=== PATIENT | male | born 1990 | race Caucasian/White ===

== ENCOUNTER 2018-08-17 19:33 | Emergency (ER) | payer SELFPAY ==
[~2018-08-17] VITALS: Ht 175.3 cm; Wt 61.2 kg
[~2018-08-17 19:33] MED LIST: HYDR1TAB PO; PANT40TA2 PO
--- OUTSIDE RECORDS SUMMARY | 2018-08-17 19:43 | XMS REPORT ---
Author Author ESTELA ROSALES Organization [employer] Address Unknown Phone Unavailable Care Team Providers Care Rn Mobile Name Role Phone ESTELA ROSALES CP Unavailable Allergies No Known Allergies Problems Problem Type Condition Code Onset Dates Condition Status Problem Acute pharyngitis 462 Active Problem Intestinal infection due to other organism, NEC 008.8 Active Medications Medication Code System Code Instructions Start Date End Date Status Dosage Tramadol HCl [facility] [id number] 50MG every 6 hrs TAKE ONE TABLET Results No Known Results Summary Purpose [employer] Submission
--- OUTSIDE RECORDS SUMMARY | 2018-08-17 19:43 | XMS REPORT ---
Author Author ESTELA ROSALES Organization [facility] Address [address] [place] [address] Care Team Providers Care Area Field Manager Name Role Phone ESTELA ROSALES Unavailable PROBLEMS Type Condition ICD9-CM Code LVK21-LQ Code Onset Dates Condition Status SNOMED Code Problem Other chronic pain G89.29 Active 74420921 ALLERGIES No Known Allergies ENCOUNTERS Encounter Location Date Diagnosis [facility] [id number] [place] [address] 75937- 7623 Oct, Low back pain M54.5 and Other chronic pain G89.29 [facility] [id number] [place] [address] 09296- 1868 Sep, [facility] [id number] [place] [address] 39807- 5066 Aug, [facility] [id number] [place] [address] 32249- 9530 Jul, [facility] [id number] [place] [address] 50724- 0333 Jul, [facility] [id number] [place] [address] 26911- 4499 Jul, [facility] [id number] [place] [address] 74666- 2759 Jun, [facility] [id number] [place] [address] 02201- 0442 Jun, [facility] [id number] [place] [address] 01407- 4849 May, [facility] [id number] [place] [address] 05849- 6843 Apr, [facility] [address] [id number] [place] [address] 7703 Apr, [facility] [address] [id number] [place] [address] 9058 February, [facility] [address] [id number] [place] [address] 1116 February, [facility] [address] [id number] [place] [address]- 2468 Jan, [facility] [address] [id number] [place] [address]- 4128 Nov, [facility] [address] [id number] [place] [address] 7551 Oct, [facility] [address] [facility] [id number] [place] [address]- 1771 Oct, [facility] [address] [id number] [place] [address]- 9864 Sep, [facility] [address] [id number] [place] [address] 8232 Aug, Low back pain M54.5 and Other chronic pain G89.29 [facility] [address] [id number] [place] [address]- 7179 Jul, [facility] [address] [id number] [place] [address]- 7951 Jul, [facility] [address] [facility] [id number] [place] [address]- 2107 Jul, [facility] [address] [id number] [place] [address]- 7972 May, [facility] [address] [id number] [place] 7667 May, [facility] [address] [facility] [id number] [place] [address]- 6589 Apr, [facility] [address] [facility] [id number] [place] [address] 36048- 8635 Mar, [facility] [address] [facility]] [id number] [place] [address] 99822- 9358 February, Low back pain M54.5 [facility] [address] [facility] [id number] [place] [address] 76984- 2852 February, Low back pain M54.5 [facility] [address] [facility] [id number] [place] [address] 66462- 5012 Dec, Low back pain M54.5 and Gastroesophageal reflux disease with esophagitis K21.0 [facility] [id number] [place] [address] 57090- 9149 Dec, [facility] [id number] [place] [address] 68379- 3274 Oct, [facility] [id number] [place] [address] 72639- 4211 Sep, [facility] [address] [facility] [id number] [place] [address] 78041- 3577 Sep, [facility] [id number] [place] [address] 85178- 8470 Aug, Back pain 724.5 [facility] [id number] [place] [address] 39082- 6502 Jul, Back pain 724.5 [facility] [id number] [place] [address] 98781- 9326 Jun, Back pain 724.5 [facility] [address] [facility] [id number] [place] [address] 23445- 2593 May, Back pain 724.5 [facility] [address] [facility] [id number] [place] [address] 300683- 6296 Apr, [facility] [id number] [place] [address] 70018- 6834 Mar, [facility] [place] [facility] [address] [id number] [place] [address]- 5539 14 Jan, 2015 [facility] [place] [facility] [address] [id number] [place] [address]- 1616 Jan, [facility] [place] [facility] [address] [id number] [place] [address]- 8487 Dec, [facility] [place] [facility] [address] [id number] [place] [address]- 9143 Dec, [facility] [place] [facility] [address] [id number] [place] [address]- 3303 Dec, [facility] [place] [facility] [address] [id number] [place] [address]- 9809 Dec, [facility] [place] [facility] [address] [id number] [place] [address]- 4236 Nov, [facility] [place] [facility] [address] [id number] [place] [address]- 3684 Nov, [facility] [place] [facility] [address] [id number] [place] [address]- 5233 Oct, [facility] [place] [facility] [address] [facility] [id number] [place] [address]- 3707 Oct, [facility] [place] [facility] [address] [facility] [id number] [place] [address]- 6861 Sep, [facility] [place] [facility] [address] [id number] [place] [address]- 3962 Sep, [facility] [place] [facility] [address] [id number] [place] [address]- 7405 Jul, [facility] [place] [facility] [address] [id number] [place] [address]- 9265 Jul, [facility] [place] [facility] [address] [id number] [place] [address]- 6700 Jul, [facility] [place] [facility] [address] [id number] [place] [address]- 1628 Jun, [facility] [place] [facility] [address] [id number] [place] [address]- 7708 Jun, [facility] [place] [facility] [address] [id number] [place] [address]- 4089 Jun, [facility] [place] [facility] [address] [id number] [place] [address]- 7271 Jun, [facility] [place] [facility] [address] [id number] [place] [address]- 7772 May, [facility] [place] [facility] [address] [id number] [place] [address]- 1881 May, [facility] [place] [facility] [address] [id number] [place] [address]- 7919 May, [facility] [place] [facility] [address] [id number] [place] [address]- 8736 May, [facility] [place] [facility] [address] [id number] [place] [address]- 7268 Apr, [facility] [place] [facility] [address] [id number] [place] [address]- 4210 Apr, [facility] [place] [facility] [address] [id number] [place] [address]- 9746 Mar, [facility] [place] [facility] [address] [id number] [place] [address]- 3869 Mar, [facility] [place] [facility] [address] [id number] [place] [address]- 0236 Jan, [facility] [place] [facility] [address] [id number] [place] [address]- 0657 Jan, [facility] [place] [facility] [address] [id number] [place] [address]- 1159 Dec, [facility] [place] [facility] [address] [id number] [place] [address]- 2982 Dec, [facility] [place] [facility] [address] [id number] [place] [address]- 2546 Nov, [facility] [address] [id number] [place] [address]- 9066 Nov, [facility] [address] [id number] [place] [address]- 2546 Sep, [facility] [address] [id number] [place] [address]- 3176 Sep, [facility] [address] [id number] [place] [address]- 2541 Sep, [facility] [address] [id number] [place] [address]- 8383 Sep, [facility] [address] [id number] [place] [address]- 9746 Aug, [facility] [address] [id number] [place] [address]- 0765 Aug, [facility] [address] [id number] [place] [address]- 3177 May, [facility] [address] [id number] [place] [address]- 1017 Apr, [facility] [address] [facility] [id number] [place] [address]- 1599 Mar, [facility] [address] [id number] [place] [address]- 2546 February, [facility] [address] [id number] [place] [address]- 5228 Jan, [facility] [place] [facility] [address] [id number] [place] [address]- 2546 Jan, [facility] [address] [id number] [place] [address]- 2546 Jan, [facility] [address] [id number] [place] [address]- 6726 Dec, [facility] [address] [facility] [id number] [address]- 8166 Dec, [facility] [address] [facility] [id number] [place] [address]- 1586 Dec, [facility] [address] [place] [address]- 5138 Oct, [facility] [address] [place] [address]- 9156 Sep, [facility] [address] [facility] [id number] [place] [address]- 5188 Sep, [facility] [address] [place] [address]- 7846 Aug, [facility] [id number] [address]- 4336 Aug, [facility] [address] [place] [address]- 2629 Aug, [facility] [address] [place] [address]- 3657 Aug, [facility] [address] [place] [address]- 4279 Aug, [facility] [address] [place] [address]- 4296 Jun, [facility] [address] [place] [address]- 9456 May, [facility] [id number] [address]- 1616 Mar, [facility] [address] [place] [address]- 9976 Sep, IMMUNIZATIONS No Known Immunizations SOCIAL HISTORY Never Assessed REASON FOR VISIT Pain management (chronic), PT says he has an increase in back spasms and has been out of his medication for a month-Deepa DICKERSON PLAN OF CARE VITAL SIGNS Height 69 in 2017-10-26 Weight 126.5 lbs 2017-10-26 Temperature 98.5 degrees Fahrenheit 2017-10-26 Heart Rate 84 bpm 2017-10-26 Respiratory Rate 18 2017-10-26 BMI 18.68 kg/m2 2017-10-26 Blood pressure systolic 124 mmHg 2017-10-26 Blood pressure diastolic 84 mmHg 2017-10-26 MEDICATIONS Medication Instructions Dosage Frequency Start Date End Date Duration Status Omeprazole 40 MG Orally Once a day 1 capsule 24h Dec, 30 day(s ) Not-Taking Tramadol HCl 50 MG Orally 4 times a day. 1 tablet as needed 28 days Active RESULTS No Results PROCEDURES No Known procedures INSTRUCTIONS MEDICATIONS ADMINISTERED No Known Medications MEDICAL (GENERAL) HISTORY Type Description Date Medical History scolosis
--- OUTSIDE RECORDS SUMMARY | 2018-08-17 19:43 | XMS REPORT ---
Author Author ESTELA ROSALES Organization [facility] [place] [facility] Address [address] [place] [address] Care Team Providers Care Hospital Liaison Name Role Phone ESTELA ROSALES Unavailable PROBLEMS Type Condition ICD9-CM Code OBB06-WP Code Onset Dates Condition Status SNOMED Code Problem Other chronic pain G89.29 Active 35676905 ALLERGIES No Information ENCOUNTERS Encounter Location Date Diagnosis [facility] [place] [facility] [id number] [place] [address] 45308- 5593 Oct, Low back pain M54.5 and Other chronic pain G89.29 [facility] [place] [facility] [id number] [place] [address] 10023- 5244 Sep, [facility] [place] [facility] [id number] [place] [address] 61353- 7367 Aug, [facility] [place] [facility] [id number] [place] [address] 64199- 9224 Jul, [facility] [place] [facility] [id number] [place] [address] 11673- 2602 Jul, [facility] [place] [facility] [id number] [place] [address] 15937- 0484 Jul, [facility] [place] [facility] [id number] [place] [address] 68713- 7539 Jun, [facility] [place] [facility] [id number] [place] [address] 05595- 3544 Jun, [facility] [place] [facility] [id number] [place] [address] 27608- 8721 May, [facility] [place] [facility] [id number] [place] [address] 55651- 0801 Apr, [facility] [place] [facility] [address] [id number] [place] [address]- 2310 Apr, [facility] [address] [id number] [place] [address]- 5781 February, [facility] [address] [id number] [place] [address]- 9966 February, [facility] [address] [id number] [place] [address]- 2241 Jan, [facility] [address] [id number] [place] [address]- 8448 Nov, [facility] [address] [id number] [place] [address]- 5984 Oct, [facility] [address] [id number] [place] [address]- 5546 Oct, [facility] [address] [id number] [place] [address]- 2933 Sep, [facility] [address] [id number] [place] [address]- 9217 Aug, Low back pain M54.5 and Other chronic pain G89.29 [facility] [address] [id number] [place] [address]- 5281 Jul, [facility] [address] [id number] [place] [address]- 0890 Jul, [facility] [address] [id number] [place] [address]- 1721 Jul, [facility] [address] [id number] [place] [address]- 1180 May, [facility] [address] [id number] [place]15 May, [facility] [address] [id number] [place] [address]- 7075 Apr, [facility] [place] [facility] [address] [facility] [id number] [place] [address] 53216- 0654 Mar, [facility] [place] [facility] [address] [facility] [id number] [place] [address] 10598- 3535 February, Low back pain M54.5 [facility] [place] [facility] [address] [facility] [id number] [place] [address] 00687- 2241 February, Low back pain M54.5 [facility] [place] [facility] [address] [facility] [id number] [place] [address] 95933- 1732 Dec, Low back pain M54.5 and Gastroesophageal reflux disease with esophagitis K21.0 [facility] [place] [facility] [id number] [place] [address] 42932- 7757 Dec, [facility] [place] [facility] [id number] [place] [address] 72491- 3400 Oct, [facility] [place] [facility] [id number] [place] [address] 60569- 5885 Sep, [facility] [place] [facility] [address] [facility] [id number] [place] [address] 01807- 8394 Sep, [facility] [place] [facility] [id number] [place] [address] 26399- 7164 Aug, Back pain 724.5 [facility] [place] [facility] [id number] [place] [address] 99099- 5824 Jul, Back pain 724.5 [facility] [place] [facility] [id number] [place] [address] 54409- 4103 Jun, Back pain 724.5 [facility] [place] [facility] [address] [facility] [id number] [place] [address] 92819- 9629 May, Back pain 724.5 [facility] [place] [facility] [address] [facility] [id number] [place] [address] 405444- 6326 Apr, [facility] [place] [facility] [id number] [place] [address] 72789- 2959 Mar, [facility] [place] [facility] [address] [id number] [place] [address]- 2643 14 Jan, 2015 [facility] [place] [facility] [address] [id number] [place] [address]- 2663 13 Jan, 2015 [facility] [place] [facility] [address] [id number] [place] [address]- 1336 Dec, [facility] [place] [facility] [address] [id number] [place] [address]- 2124 Dec, [facility] [place] [facility] [address] [id number] [place] [address]- 4815 Dec, [facility] [place] [facility] [address] [id number] [place] [address]- 4553 Dec, [facility] [place] [facility] [address] [id number] [place] [address]- 6599 Nov, [facility] [place] [facility] [address] [id number] [place] [address]- 0136 Nov, [facility] [place] [facility] [address] [id number] [place] [address]- 4594 Oct, [facility] [place] [facility] [address] [id number] [place] [address]- 3781 Oct, [facility] [place] [facility] [address] [id number] [place] [address]- 0923 Sep, [facility] [place] [facility] [address] [id number] [place] [address]- 6778 Sep, [facility] [place] [facility] [address] [id number] [place] [address]- 1194 Jul, [facility] [place] [facility] [address] [id number] [place] [address]- 9915 Jul, [facility] [place] [facility] [address] [id number] [place] 9468 Jul, [facility] [place] [facility] [address] [id number] [place] [address]- 3788 Jun, [facility] [place] [facility] [address] [id number] [place] [address]- 7124 Jun, [facility] [place] [facility] [address] [id number] [place] [address]- 9759 Jun, [facility] [place] [facility] [address] [id number] [place] [address]- 7888 Jun, [facility] [place] [facility] [address] [id number] [place] [address]- 7511 May, [facility] [place] [facility] [address] [id number] [place] [address]- 9519 May, [facility] [place] [facility] [address] [id number] [place] [address]- 0540 May, [facility] [place] [facility] [address] [id number] [place] [address]- 6366 May, [facility] [place] [facility] [address] [id number] [place] [address]- 9383 Apr, [facility] [place] [facility] [address] [id number] [place] [address]- 9985 Apr, [facility] [place] [facility] [address] [id number] [place] [address]- 7507 Mar, [facility] [place] [facility] [address] [id number] [place] [address]- 2075 Mar, [facility] [place] [facility] [address] [id number] [place] [address]- 8951 Jan, [facility] [place] [facility] [address] [id number] [place] [address]- 9001 Jan, [facility] [place] [facility] [address] [id number] [place] 3649 Dec, [facility] [place] [facility] [address] [id number] [place] [address]- 1284 Dec, [facility] [place] [facility] [address] [id number] [place] [address]- 2546 Nov, [facility] [address] [id number] [place] [address]- 6284 Nov, [facility] [address] [id number] [place] [address]- 3766 Sep, [facility] [address] [id number] [place] [address]- 3436 Sep, [facility] [address] [id number] [place] [address]- 1828 Sep, [facility] [address] [id number] [place] [address]- 4470 Sep, [facility] [address] [facility] [id number] [place] [address]- 5946 Aug, [facility] [address] [id number] [place] [address]- 1168 Aug, [facility] [address] [id number] [place] [address]- 2080 May, [facility] [address] [id number] [place] [address]- 9153 Apr, [facility] [address] [facility] [id number] [place] [address]- 1963 Mar, [facility] [address] [id number] [place] [address]- 2546 February, [facility] [address] [id number] [place] [address]- 4953 Jan, [facility] [address] [id number] [place] [address]- 0063 Jan, [facility] [address] [id number] [place] [address]- 2546 Jan, [facility] [address] [id number] [place] [address]- 2212 Dec, [facility] [place] [facility] [address] [facility] [id number] [place] [address]- 4199 Dec, [facility] [place] [facility] [address] [facility] [id number] [place] [address]- 6396 Dec, [facility] [place] [facility] [address] [facility] [id number] [place] [address]- 7086 Oct, [facility] [place] [facility] [address] [facility] [id number] [place] [address]- 9486 Sep, [facility] [place] [facility] [address] [facility] [id number] [place] [address]- 5804 Sep, [facility] [place] [facility] [address] [id number] [address]- 2956 Aug, [facility] [place] [facility] [id number] [address]- 5256 Aug, [facility] [place] [facility] [id number] [address]- 1166 Aug, [facility] [place] [facility] [id number] [address]- 0735 Aug, [facility] [place] [facility] [id number] [address]- 7016 Aug, [facility] [place] [facility] [id number] [address]- 0096 Jun, [facility] [place] [facility] [address] [id number] [address]- 0436 May, [facility] [place] [facility] [address] [id number] [address]- 8726 Mar, [facility] [place] [facility] [id number] [address]- 4596 Sep, IMMUNIZATIONS No Known Immunizations SOCIAL HISTORY Never Assessed REASON FOR VISIT refill request PLAN OF CARE VITAL SIGNS MEDICATIONS No Known Medications RESULTS No Results PROCEDURES No Known procedures INSTRUCTIONS MEDICATIONS ADMINISTERED No Known Medications MEDICAL (GENERAL) HISTORY Type Description Date Medical History scolosis
--- OUTSIDE RECORDS SUMMARY | 2018-08-17 19:43 | XMS REPORT ---
Author Author ESTELA ROSALES Organization [employer] Address Unknown Phone Unavailable Care Team Providers Care Census Clerk Name Role Phone ESTELA ROSALES CP Unavailable Allergies No Known Allergies Problems Problem Type Condition Code Onset Dates Condition Status Problem Acute pharyngitis 462 Active Problem Intestinal infection due to other organism, NEC 008.8 Active Medications Medication Code System Code Instructions Start Date End Date Status Dosage Tramadol HCl [facility] [id number] 50MG 4 times a day. 1 tablet as needed Results No Known Results Summary Purpose [employer] Submission
--- OUTSIDE RECORDS SUMMARY | 2018-08-17 19:43 | XMS REPORT ---
Author Author ESTELA ROSALES Organization [facility] Address [address] [place] [address] Care Team Providers Care Laboratory Operations Coordinator Name Role Phone ESTELA ROSALES Unavailable PROBLEMS Type Condition ICD9-CM Code LMO83-PF Code Onset Dates Condition Status SNOMED Code Problem Other chronic pain G89.29 Active 06101917 ALLERGIES No Information ENCOUNTERS Encounter Location Date Diagnosis [facility] [id number] [place] [address] 01429- 2938 Oct, Low back pain M54.5 and Other chronic pain G89.29 [facility] [id number] [place] [address] 89048- 7954 Sep, [facility] [id number] [place] [address] 44480- 3407 Aug, [facility] [id number] [place] [address] 79437- 6012 Jul, [facility] [id number] [place] [address] 33816- 9264 Jul, [facility] [id number] [place] [address] 50766- 2641 Jul, [facility] [id number] [place] [address] 15257- 3057 Jun, [facility] [id number] [place] [address] 96359- 9328 Jun, [facility] [id number] [place] [address] 92087- 2937 May, [facility] [id number] [place] [address] 27910- 1006 Apr, [facility] [address] [id number] [place] [address]- 9534 Apr, [facility] [address] [id number] [place] [address]- 1515 February, [facility] [address] [id number] [place] [address]- 7096 February, [facility] [address] [id number] [place] [address]- 7878 Jan, [facility] [address] [id number] [place] [address]- 0928 Nov, [facility] [address] [id number] [place] [address]- 7344 Oct, [facility] [address] [id number] [place] [address]- 0829 Oct, [facility] [address] [id number] [place] [address]- 1855 Sep, [facility] [address] [id number] [place] [address]- 4364 Aug, Low back pain M54.5 and Other chronic pain G89.29 [facility] [address] [id number] [place] [address]- 4980 Jul, [facility] [address] [id number] [place] [address]- 9648 Jul, [facility] [address] [id number] [place] [address]- 6873 Jul, [facility] [address] [id number] [place] [address]- 1232 May, [facility] [address] [id number] [place] 6113 May, [facility] [address] [id number] [place] [address]- 8275 Apr, [facility] [place] [facility] [address] [facility] [id number] [place] [address] 38470- 7637 Mar, [facility] [address] [facility] [id number] [place] [address] 05877- 2322 February, Low back pain M54.5 [facility] [address] [facility] [id number] [place] [address] 84596- 0995 February, Low back pain M54.5 [facility] [address] [facility] [id number] [place] [address] 15060- 0802 Dec, Low back pain M54.5 and Gastroesophageal reflux disease with esophagitis K21.0 [facility] [id number] [place] [address] 62286- 1399 Dec, [facility] [id number] [place] [address] 41368- 7231 Oct, [facility] [id number] [place] [address] 94733- 7950 Sep, [facility] [address] [facility] [id number] [place] [address] 49338- 6358 Sep, [facility] [id number] [place] [address] 61937- 4342 Aug, Back pain 724.5 [facility] [id number] [place] [address] 89674- 1647 Jul, Back pain 724.5 [facility] [id number] [place] [address] 79810- 0815 Jun, Back pain 724.5 [facility] [address] [facility] [id number] [place] [address] 63157- 4724 May, Back pain 724.5 [facility] [address] [facility] [id number] [place] [address] 865601- 0656 Apr, [facility] [id number] [place] [address] 70321- 4260 Mar, [facility] [place] [facility] [address] [id number] [place] [address]- 4005 14 Jan, 2015 [facility] [place] [facility] [address] [id number] [place] [address]- 7736 13 Jan, 2015 [facility] [place] [facility] [address] [id number] [place] [address]- 8359 Dec, [facility] [place] [facility] [address] [id number] [place] [address]- 0453 Dec, [facility] [place] [facility] [address] [id number] [place] [address]- 2539 Dec, [facility] [place] [facility] [address] [id number] [place] [address]- 4456 Dec, [facility] [place] [facility] [address] [id number] [place] [address]- 4581 Nov, [facility] [place] [facility] [address] [id number] [place] [address]- 6565 Nov, [facility] [place] [facility] [address] [id number] [place] [address]- 1555 Oct, [facility] [place] [facility] [address] [id number] [place] [address]- 7562 Oct, [facility] [place] [facility] [address] [id number] [place] [address]- 6024 Sep, [facility] [place] [facility] [address] [id number] [place] [address]- 3190 Sep, [facility] [place] [facility] [address] [id number] [place] [address]- 0466 Jul, [facility] [place] [facility] [address] [id number] [place] [address]- 2121 Jul, [facility] [place] [facility] [address] [id number] [place] 7968 Jul, [facility] [place] [facility] [address] [id number] [place] [address]- 4719 Jun, [facility] [place] [facility] [address] [id number] [place] [address]- 8552 Jun, [facility] [place] [facility] [address] [id number] [place] [address]- 8601 Jun, [facility] [place] [facility] [address] [id number] [place] [address]- 2483 Jun, [facility] [place] [facility] [address] [id number] [place] [address]- 7965 May, [facility] [place] [facility] [address] [id number] [place] [address]- 0267 May, [facility] [place] [facility] [address] [id number] [place] [address]- 6377 May, [facility] [place] [facility] [address] [id number] [place] [address]- 4076 May, [facility] [place] [facility] [address] [id number] [place] [address]- 6667 Apr, [facility] [place] [facility] [address] [id number] [place] [address] Apr, [facility] [place] [facility] [address] [id number] [place] [address] Mar, [facility] [place] [facility] [address] [id number] [place] [address] Mar, [facility] [place] [facility] [address] [id number] [place] [address] Jan, [facility] [place] [facility] [address] [id number] [place] [address] Jan, [facility] [place] [facility] [address] [id number] [place] [address] Dec, [facility] [place] [facility] [address] [id number] [place] [address] Dec, [facility] [place] [facility] [address] [id number] [place] [address] Nov, [facility] [address] [id number] [place] [address] Nov, [facility] [address] [id number] [place] [address] Sep, [facility] [address] [id number] [place] [address] Sep, [facility] [address] [id number] [place] [address] Sep, [facility] [address] [id number] [place] [address] Sep, [facility] [address] [facility] [id number] [place] [address] Aug, [facility] [address] [id number] [place] [address] Aug, [facility] [address] [id number] [place] [address] May, [facility] [address] [id number] [place] [address] Apr, [facility] [address] [facility] [id number] [place] [address] Mar, [facility] [address] [id number] [place] [address] February, [facility] [address] [id number] [place] [address] Jan, [facility] [address] [id number] [place] [address] Jan, [facility] [address] [id number] [place] [address] Jan, [facility] [address] [id number] [place] [address] Dec, [facility] [address] [facility] [id number], [place] [address] Dec, [facility] [address] [facility] [id number], [place] [address] Dec, [facility] [address] [facility] [id number], [place] [address] Oct, [facility] [address] [facility] [id number], [place] [address] Sep, [facility] [address] [facility] [id number], [place] [address] Sep, [facility] [address] [id number], [place] [address] Aug, [facility] [id number], [place] [address] Aug, [facility] [id number], [place] [address] Aug, [facility] [id number], [place] [address] Aug, [facility] [id number], [place] [address] Aug, [facility] [address] [id number], [place] [address] Jun, [facility] [address] [id number], [place] [address] May, [facility] [address] [id number], [place] [address] Mar, [facility] [address] [id number], [place] [address] Sep, IMMUNIZATIONS No Known Immunizations SOCIAL HISTORY Never Assessed REASON FOR VISIT LVM PLAN OF CARE VITAL SIGNS MEDICATIONS No Known Medications RESULTS No Results PROCEDURES No Known procedures INSTRUCTIONS MEDICATIONS ADMINISTERED No Known Medications MEDICAL (GENERAL) HISTORY Type Description Date Medical History scolosis
--- OUTSIDE RECORDS SUMMARY | 2018-08-17 19:44 | XMS REPORT ---
Author Author ESTELA ROSALES [facility] Address [address] [place] [address] Care Team Providers Care Press Setup Operator Name Role Phone ESTELA ROSALES Unavailable PROBLEMS Type Condition ICD9-CM Code [id number] Code Onset Dates Condition Status SNOMED Code Problem Other chronic pain G89.29 Active 31833434 Problem Intestinal infection due to other organism, NEC 008.8 Active 58763907 Problem Acute pharyngitis 462 Active [id number] ALLERGIES Unknown Allergies SOCIAL HISTORY No smoking Hx information available PLAN OF CARE VITAL SIGNS MEDICATIONS Unknown Medications RESULTS No Results PROCEDURES No Known procedures IMMUNIZATIONS No Known Immunizations
--- OUTSIDE RECORDS SUMMARY | 2018-08-17 19:44 | XMS REPORT ---
Author Author ESTELA ROSALES Organization [facility] Address [address] [place] [address] Care Team Providers Care Bill Adjuster Name Role Phone ESTELA ROSALES Unavailable PROBLEMS Type Condition ICD9-CM Code CCB79-PS Code Onset Dates Condition Status SNOMED Code Problem Other chronic pain G89.29 Active 21746710 ALLERGIES No Information ENCOUNTERS Encounter Location Date Diagnosis [facility] [id number] [place] [address] 00943- 9537 Oct, Low back pain M54.5 and Other chronic pain G89.29 [facility] [id number] [place] [address] 98948- 5866 Sep, [facility] [id number] [place] [address] 83533- 4659 Aug, [facility] [id number] [place] [address] 77342- 2387 Jul, [facility] [id number] [place] [address] 19089- 0251 Jul, [facility] [id number] [place] [address] 80337- 7075 Jul, [facility] [id number] [place] [address] 39237- 1489 Jun, [facility] [id number] [place] [address] 57468- 1080 Jun, [facility] [id number] [place] [address] 53444- 0258 May, [facility] [id number] [place] [address] 57691- 7135 Apr, [facility] [address] [id number] [place] [address]- 1496 Apr, [facility] [address] [id number] [place] [address]- 2768 February, [facility] [address] [id number] [place] [address]- 8856 February, [facility] [address] [id number] [place] [address]- 3959 Jan, [facility] [address] [id number] [place] [address]- 9034 Nov, [facility] [address] [id number] [place] [address]- 2009 Oct, [facility] [address] [id number] [place] [address]- 5931 Oct, [facility] [address] [id number] [place] [address]- 4862 Sep, [facility] [address] [id number] [place] [address]- 1255 Aug, Low back pain M54.5 and Other chronic pain G89.29 [facility] [address] [id number] [place] [address]- 5048 Jul, [facility] [address] [id number] [place] [address]- 7107 Jul, [facility] [address] [id number] [place] [address]- 0696 Jul, [facility] [address] [id number] [place] [address]- 6864 May, [facility] [address] [id number] [place] 4965 May, [facility] [address] [id number] [place] [address]- 2858 Apr, [facility] [place] [facility] [address] [facility] [id number] [place] [address] 05326- 6958 Mar, [facility] [address] [facility] [id number] [place] [address] 42201- 7494 February, Low back pain M54.5 [facility] [address] [facility] [id number] [place] [address] 30082- 3589 February, Low back pain M54.5 [facility] [address] [facility] [id number] [place] [address] 53150- 1380 Dec, Low back pain M54.5 and Gastroesophageal reflux disease with esophagitis K21.0 [facility] [id number] [place] [address] 39038- 9669 Dec, [facility] [id number] [place] [address] 92739- 3985 Oct, [facility] [id number] [place] [address] 05025- 8239 Sep, [facility] [address] [facility] [id number] [place] [address] 91597- 2259 Sep, [facility] [id number] [place] [address] 96932- 7712 Aug, Back pain 724.5 [facility] [id number] [place] [address] 72545- 3143 Jul, Back pain 724.5 [facility] [id number] [place] [address] 78553- 4435 Jun, Back pain 724.5 [facility] [address] [facility] [id number] [place] [address] 80138- 2615 May, Back pain 724.5 [facility] [address] [facility] [id number] [place] [address] 250121- 6776 Apr, [facility] [id number] [place] [address] 34757- 6544 Mar, [facility] [place] [facility] [address] [id number] [place] [address]- 0957 14 Jan, 2015 [facility] [place] [facility] [address] [id number] [place] [address]- 0788 13 Jan, 2015 [facility] [place] [facility] [address] [id number] [place] [address]- 0421 Dec, [facility] [place] [facility] [address] [id number] [place] [address]- 4953 Dec, [facility] [place] [facility] [address] [id number] [place] [address]- 2388 Dec, [facility] [place] [facility] [address] [id number] [place] [address]- 0560 Dec, [facility] [place] [facility] [address] [id number] [place] [address]- 5299 Nov, [facility] [place] [facility] [address] [id number] [place] [address]- 5373 Nov, [facility] [place] [facility] [address] [id number] [place] [address]- 4984 Oct, [facility] [place] [facility] [address] [id number] [place] [address]- 0114 Oct, [facility] [place] [facility] [address] [id number] [place] [address]- 8356 Sep, [facility] [place] [facility] [address] [id number] [place] [address]- 6711 Sep, [facility] [place] [facility] [address] [id number] [place] [address]- 2471 Jul, [facility] [place] [facility] [address] [id number] [place] [address]- 4943 Jul, [facility] [place] [facility] [address] [id number] [place] 8418 Jul, [facility] [place] [facility] [address] [id number] [place] [address]- 9524 Jun, [facility] [place] [facility] [address] [id number] [place] [address]- 8267 Jun, [facility] [place] [facility] [address] [id number] [place] [address]- 9637 Jun, [facility] [place] [facility] [address] [id number] [place] [address]- 9654 Jun, [facility] [place] [facility] [address] [id number] [place] [address]- 4461 May, [facility] [place] [facility] [address] [id number] [place] [address]- 7287 May, [facility] [place] [facility] [address] [id number] [place] [address]- 8683 May, [facility] [place] [facility] [address] [id number] [place] [address]- 2006 May, [facility] [place] [facility] [address] [id number] [place] [address]- 9468 Apr, [facility] [place] [facility] [address] [id number] [place] [address]- 9319 Apr, [facility] [place] [facility] [address] [id number] [place] [address]- 2534 Mar, [facility] [place] [facility] [address] [id number] [place] [address]- 2200 Mar, [facility] [place] [facility] [address] [id number] [place] [address]- 9536 Jan, [facility] [place] [facility] [address] [id number] [place] [address]- 3295 Jan, [facility] [place] [facility] [address] [id number] [place] 5997 Dec, [facility] [place] [facility] [address] [id number] [place] [address]- 4801 Dec, [facility] [place] [facility] [address] [id number] [place] [address]- 2546 Nov, [facility] [address] [id number] [place] [address]- 7419 Nov, [facility] [address] [id number] [place] [address]- 2706 Sep, [facility] [address] [id number] [place] [address]- 7166 Sep, [facility] [address] [id number] [place] [address]- 2604 Sep, [facility] [address] [id number] [place] [address]- 8704 Sep, [facility] [address] [facility] [id number] [place] [address]- 4193 Aug, [facility] [address] [id number] [place] [address]- 8409 Aug, [facility] [address] [id number] [place] [address]- 4375 May, [facility] [address] [id number] [place] [address]- 9127 Apr, [facility] [address] [facility] [id number] [place] [address]- 6453 Mar, [facility] [address] [id number] [place] [address]- 2546 February, [facility] [address] [id number] [place] [address]- 2331 Jan, [facility] [address] [id number] [place] [address]- 8262 Jan, [facility] [address] [id number] [place] [address]- 2546 Jan, [facility] [address] [id number] [place] [address]- 2093 Dec, [facility] [address] [address]- 0118 Dec, [facility] [address] [address]- 3136 Dec, [facility] [id number] [address]- 6916 Oct, [facility] [address] [address]- 3776 Sep, [facility] [id number] [address]- 6590 Sep, [facility] [id number] [place] [address] 28262- 7186 Aug, [facility] [address] [address]- 9786 Aug, [facility] [address] [address]- 3111 Aug, [facility] [address] [address]- 2349 Aug, [facility] [address] [address]- 3386 Aug, [facility] [address] [address]- 3956 Jun, [facility] [id number] [address]- 7696 May, [facility] [id number] [address]- 7343 Mar, [facility] [address] [address]- 9266 Sep, IMMUNIZATIONS No Known Immunizations SOCIAL HISTORY Never Assessed REASON FOR VISIT Resend Rx PLAN OF CARE VITAL SIGNS MEDICATIONS Medication Instructions Dosage Frequency Start Date End Date Duration Status Tramadol HCl 50 MG Orally 4 times a day. 1 tablet as needed 28 days Active RESULTS No Results PROCEDURES No Known procedures INSTRUCTIONS MEDICATIONS ADMINISTERED No Known Medications MEDICAL (GENERAL) HISTORY Type Description Date Medical History scolosis
--- OUTSIDE RECORDS SUMMARY | 2018-08-17 19:44 | XMS REPORT ---
Author Author ESTELA ROSALES [facility] Address [address] [place] [address] Care Team Providers Care Dress Cutter Name Role Phone ESTELA ROSALES Unavailable PROBLEMS Type Condition ICD9-CM Code OBC45-KJ Code Onset Dates Condition Status SNOMED Code Problem Other chronic pain G89.29 Active 10462088 Problem Intestinal infection due to other organism, NEC 008.8 Active 06559266 Problem Acute pharyngitis 462 Active [id number] ALLERGIES No Information SOCIAL HISTORY Never Assessed PLAN OF CARE VITAL SIGNS MEDICATIONS Medication Instructions Dosage Frequency Start Date End Date Duration Status Tramadol HCl 50 MG Orally 4 times a day. 1 tablet as needed 28 days Active RESULTS No Results PROCEDURES No Known procedures IMMUNIZATIONS No Known Immunizations MEDICAL (GENERAL) HISTORY Type Description Date Medical History scolosis
--- OUTSIDE RECORDS SUMMARY | 2018-08-17 19:44 | XMS REPORT ---
Author Author ESTELA ROSALES Organization [employer] Address Unknown Phone Unavailable Care Team Providers Care Plastic Printer Name Role Phone ESTELA ROSALES CP Unavailable Allergies No Known Allergies Problems Problem Type Condition Code Onset Dates Condition Status Problem Acute pharyngitis 462 Active Problem Intestinal infection due to other organism, NEC 008.8 Active Medications No Known Medications Results No Known Results Summary Purpose [employer] Submission
--- OUTSIDE RECORDS SUMMARY | 2018-08-17 19:44 | XMS REPORT ---
Author Author ESTELA ROSALES Organization [facility] Address [address] [place] [address] Care Team Providers Care Intensive Care Unit Registered Nurse Name Role Phone ESTELA ROSALES Unavailable PROBLEMS Type Condition ICD9-CM Code FMZ28-XE Code Onset Dates Condition Status SNOMED Code Problem Other chronic pain G89.29 Active 99426029 ALLERGIES No Information ENCOUNTERS Encounter Location Date Diagnosis [facility] [id number] [place] [address] 22889- 4219 Oct, Low back pain M54.5 and Other chronic pain G89.29 [facility] [id number] [place] [address] 90061- 1935 Sep, [facility] [id number] [place] [address] 02120- 7854 Aug, [facility] [id number] [place] [address] 88937- 6063 Jul, [facility] [id number] [place] [address] 44509- 0369 Jul, [facility] [id number] [place] [address] 20324- 9087 Jul, [facility] [id number] [place] [address] 32704- 7061 Jun, [facility] [id number] [place] [address] 25915- 0412 Jun, [facility] [id number] [place] [address] 05537- 9777 May, [facility] [id number] [place] [address] 56809- 2770 Apr, [facility] [address] [id number] [place] [address]- 9958 Apr, [facility] [address] [id number] [place] [address]- 6754 February, [facility] [address] [id number] [place] [address]- 9226 February, [facility] [address] [id number] [place] [address]- 0514 Jan, [facility] [address] [id number] [place] [address]- 0847 Nov, [facility] [address] [id number] [place] [address]- 1631 Oct, [facility] [address] [id number] [place] [address]- 9912 Oct, [facility] [address] [id number] [place] [address]- 3884 Sep, [facility] [address] [id number] [place] [address]- 8710 Aug, Low back pain M54.5 and Other chronic pain G89.29 [facility] [address] [id number] [place] [address]- 9232 Jul, [facility] [address] [id number] [place] [address]- 7534 Jul, [facility] [address] [id number] [place] [address]- 3663 Jul, [facility] [address] [id number] [place] [address]- 2019 May, [facility] [address] [id number] [place] 9318 May, [facility] [address] [id number] [place] [address]- 7437 Apr, [facility] [place] [facility] [address] [facility] [id number] [place] [address] 17308- 7217 Mar, [facility] [address] [facility] [id number] [place] [address] 60747- 7723 February, Low back pain M54.5 [facility] [address] [facility] [id number] [place] [address] 74119- 1002 February, Low back pain M54.5 [facility] [address] [facility] [id number] [place] [address] 33963- 0086 Dec, Low back pain M54.5 and Gastroesophageal reflux disease with esophagitis K21.0 [facility] [id number] [place] [address] 43448- 0145 Dec, [facility] [id number] [place] [address] 54602- 4351 Oct, [facility] [id number] [place] [address] 34333- 1367 Sep, [facility] [address] [facility] [id number] [place] [address] 29223- 6663 Sep, [facility] [id number] [place] [address] 87786- 2107 Aug, Back pain 724.5 [facility] [id number] [place] [address] 95261- 4970 Jul, Back pain 724.5 [facility] [id number] [place] [address] 91178- 3027 Jun, Back pain 724.5 [facility] [address] [facility] [id number] [place] [address] 63157- 5724 May, Back pain 724.5 [facility] [address] [facility] [id number] [place] [address] 070687- 7476 Apr, [facility] [id number] [place] [address] 56471- 7745 Mar, [facility] [place] [facility] [address] [id number] [place] [address]- 1783 14 Jan, 2015 [facility] [place] [facility] [address] [id number] [place] [address]- 0824 13 Jan, 2015 [facility] [place] [facility] [address] [id number] [place] [address]- 0687 Dec, [facility] [place] [facility] [address] [id number] [place] [address]- 1042 Dec, [facility] [place] [facility] [address] [id number] [place] [address]- 5801 Dec, [facility] [place] [facility] [address] [id number] [place] [address]- 4606 Dec, [facility] [place] [facility] [address] [id number] [place] [address]- 9256 Nov, [facility] [place] [facility] [address] [id number] [place] [address]- 4006 Nov, [facility] [place] [facility] [address] [id number] [place] [address]- 5998 Oct, [facility] [place] [facility] [address] [id number] [place] [address]- 2203 Oct, [facility] [place] [facility] [address] [id number] [place] [address]- 0865 Sep, [facility] [place] [facility] [address] [id number] [place] [address]- 6562 Sep, [facility] [place] [facility] [address] [id number] [place] [address]- 0030 Jul, [facility] [place] [facility] [address] [id number] [place] [address]- 9224 Jul, [facility] [place] [facility] [address] [id number] [place] 5119 Jul, [facility] [place] [facility] [address] [id number] [place] [address]- 9771 Jun, [facility] [place] [facility] [address] [id number] [place] [address]- 0074 Jun, [facility] [place] [facility] [address] [id number] [place] [address]- 5345 Jun, [facility] [place] [facility] [address] [id number] [place] [address]- 8065 Jun, [facility] [place] [facility] [address] [id number] [place] [address]- 7877 May, [facility] [place] [facility] [address] [id number] [place] [address]- 1951 May, [facility] [place] [facility] [address] [id number] [place] [address]- 9614 May, [facility] [place] [facility] [address] [id number] [place] [address]- 7261 May, [facility] [place] [facility] [address] [id number] [place] [address]- 3264 Apr, [facility] [place] [facility] [address] [id number] [place] [address]- 9906 Apr, [facility] [place] [facility] [address] [id number] [place] [address]- 4229 Mar, [facility] [place] [facility] [address] [id number] [place] [address] Mar, [facility] [place] [facility] [address] [id number] [place] [address] Jan, [facility] [place] [facility] [address] [id number] [place] [address] Jan, [facility] [place] [facility] [address] [id number] [place] [address] Dec, [facility] [place] [facility] [address] [id number] [place] [address] Dec, [facility] [place] [facility] [address] [id number] [place] [address] Nov, [facility] [address] [id number] [place] [address] Nov, [facility] [address] [id number] [place] [address] Sep, [facility] [address] [id number] [place] [address] Sep, [facility] [address] [id number] [place] [address] Sep, [facility] [address] [id number] [place] [address] Sep, [facility] [address] [facility] [id number] [place] [address] Aug, [facility] [address] [id number] [place] [address] Aug, [facility] [address] [id number] [place] [address] May, [facility] [address] [id number] [place] [address] Apr, [facility] [address] [facility] [id number] [place] [address] Mar, [facility] [address] [id number] [place] [address] February, [facility] [address] [id number] [place] [address] Jan, [facility] [address] [id number] [place] [address] Jan, [facility] [address] [id number] [place] [address] Jan, [facility] [address] [id number] [place] [address] Dec, [facility] [address] [facility] [id number] [place] [address] 13 Dec, 2012 [facility] [address] [facility] [id number] [place] [address] Dec, [facility] [address] [facility] [id number] [place] [address] Oct, [facility] [address] [facility] [id number] [place] [address] Sep, [facility] [address] [facility] [id number] [place] [address] Sep, [facility] [address] [id number] [address] Aug, [facility] [id number] [address] Aug, [facility] [id number] [address] Aug, [facility] [id number] [address] Aug, [facility] [id number] [address] Aug, [facility] [address] [id number] [address] Jun, [facility] [address] [id number] [address] May, [facility] [address] [id number] [address] Mar, [facility] [address] [id number] [address] Sep, IMMUNIZATIONS No Known Immunizations SOCIAL HISTORY Never Assessed REASON FOR VISIT PLAN OF CARE VITAL SIGNS MEDICATIONS No Known Medications RESULTS No Results PROCEDURES No Known procedures INSTRUCTIONS MEDICATIONS ADMINISTERED No Known Medications MEDICAL (GENERAL) HISTORY Type Description Date Medical History scolosis
--- OUTSIDE RECORDS SUMMARY | 2018-08-17 19:44 | XMS REPORT ---
Author Author ESTELA ROSALES Organization [employer] Address Unknown Phone Unavailable Care Team Providers Care Stereo Compiler Name Role Phone ESTELA ROSALES CP Unavailable Allergies No Known Allergies Problems Problem Type Condition Code Onset Dates Condition Status Problem Acute pharyngitis 462 Active Problem Intestinal infection due to other organism, NEC 008.8 Active Medications Medication Code System Code Instructions Start Date End Date Status Dosage Tramadol HCl [facility] [id number] 50MG 4 times a day. 1 tablet as needed Results No Known Results Summary Purpose eClinicalWorks Submission
--- OUTSIDE RECORDS SUMMARY | 2018-08-17 19:44 | XMS REPORT ---
Author Author ESTELA ROSALES Organization [facility] Address [address] [place] [address] Care Team Providers Care Dispatcher Service Chief Name Role Phone ESTELA ROSALES Unavailable PROBLEMS Type Condition ICD9-CM Code FPT68-UM Code Onset Dates Condition Status SNOMED Code Problem Other chronic pain G89.29 Active 90012119 ALLERGIES No Information ENCOUNTERS Encounter Location Date Diagnosis [facility] [id number] [place] [address] 80175- 1584 Oct, Low back pain M54.5 and Other chronic pain G89.29 [facility] [id number] [place] [address] 11779- 9831 Sep, [facility] [id number] [place] [address] 99828- 9583 Aug, [facility] [id number] [place] [address] 97522- 5793 Jul, [facility] [id number] [place] [address] 51754- 5906 Jul, [facility] [id number] [place] [address] 90279- 0170 Jul, [facility] [id number] [place] [address] 22309- 1346 Jun, [facility] [id number] [place] [address] 84512- 1553 Jun, [facility] [id number] [place] [address] 49606- 9993 May, [facility] [id number] [place] [address] 11588- 2174 Apr, [facility] [address] [id number] [place] [address] 4698 Apr, [facility] [address] [id number] [place] [address] 9578 February, [facility] [address] [id number] [place] [address] 2526 February, [facility] [address] [id number] [place] [address] 2940 Jan, [facility] [address] [id number] [place] [address]- 7943 Nov, [facility] [address] [id number] [place] [address] 1539 Oct, [facility] [address] [id number] [place] [address]- 9198 Oct, [facility] [address] [id number] [place] [address] 5921 Sep, [facility] [address] [id number] [place] [address] 9601 Aug, Low back pain M54.5 and Other chronic pain G89.29 [facility] [address] [id number] [place] [address] 3203 Jul, [facility] [address] [id number] [place] [address]- 7102 Jul, [facility] [address] [id number] [place] [address]- 3061 Jul, [facility] [address] [id number] [place] [address]- 6085 May, [facility] [address] [id number] [place] [address] May, [facility] [address] [id number] [place] [address]- 7609 Apr, [facility] [place] [facility] [address] [facility] [id number] [place] [address] 10701- 4799 Mar, [facility] [address] [facility] [id number] [place] [address] 92658- 4178 February, Low back pain M54.5 [facility] [address] [facility] [id number] [place] [address] 57597- 6352 February, Low back pain M54.5 [facility] [address] [facility] [id number] [place] [address] 24189- 3207 Dec, Low back pain M54.5 and Gastroesophageal reflux disease with esophagitis K21.0 [facility] [id number] [place] [address] 02449- 7717 Dec, [facility] [id number] [place] [address] 47709- 7802 Oct, [facility] [id number] [place] [address] 02568- 0126 Sep, [facility] [address] [facility] [id number] [place] [address] 65278- 6110 Sep, [facility] [id number] [place] [address] 47922- 6603 Aug, Back pain 724.5 [facility] [id number] [place] [address] 35260- 5024 Jul, Back pain 724.5 [facility] [id number] [place] [address] 60738- 5753 Jun, Back pain 724.5 [facility] [address] [facility] [id number] [place] [address] 81864- 0479 May, Back pain 724.5 [facility] [address] [facility] [id number] [place] [address] [id number]- 7016 Apr, [facility] [id number] [place] [address] 07959- 7721 Mar, [facility] [place] [facility] [address] [id number] [place] [address]- 0879 14 Jan, 2015 [facility] [place] [facility] [address] [id number] [place] [address]- 8458 13 Jan, 2015 [facility] [place] [facility] [address] [id number] [place] [address]- 2094 Dec, [facility] [place] [facility] [address] [id number] [place] [address]- 8195 Dec, [facility] [place] [facility] [address] [id number] [place] [address]- 7769 Dec, [facility] [place] [facility] [address] [id number] [place] [address]- 0356 Dec, [facility] [place] [facility] [address] [id number] [place] [address]- 3879 Nov, [facility] [place] [facility] [address] [id number] [place] [address]- 1668 Nov, [facility] [place] [facility] [address] [id number] [place] [address]- 8992 Oct, [facility] [place] [facility] [address] [id number] [place] [address]- 5990 Oct, [facility] [place] [facility] [address] [id number] [place] [address]- 2501 Sep, [facility] [place] [facility] [address] [id number] [place] [address]- 8113 Sep, [facility] [place] [facility] [address] [id number] [place] [address]- 6708 Jul, [facility] [place] [facility] [address] [id number] [place] [address]- 8802 Jul, [facility] [place] [facility] [address] [id number] [place] [address] Jul, [facility] [place] [facility] [address] [id number] [place] [address]- 3786 Jun, [facility] [place] [facility] [address] [id number] [place] [address]- 5177 Jun, [facility] [place] [facility] [address] [id number] [place] [address]- 8960 Jun, [facility] [place] [facility] [address] [id number] [place] [address]- 3984 Jun, [facility] [place] [facility] [address] [id number] [place] [address]- 0171 May, [facility] [place] [facility] [address] [id number] [place] [address]- 4783 May, [facility] [place] [facility] [address] [id number] [place] [address]- 5946 May, [facility] [place] [facility] [address] [id number] [place] [address]- 2944 May, [facility] [place] [facility] [address] [id number] [place] [address]- 5067 Apr, [facility] [place] [facility] [address] [id number] [place] [address]- 6879 Apr, [facility] [place] [facility] [address] [id number] [place] [address]- 9717 Mar, [facility] [place] [facility] [address] [id number] [place] [address]- 8588 Mar, [facility] [place] [facility] [address] [id number] [place] [address]- 4006 Jan, [facility] [place] [facility] [address] [id number] [place] [address]- 8948 Jan, [facility] [place] [facility] [address] [id number] [place] 3492 Dec, [facility] [place] [facility] [address] [id number] [place] [address]- 3436 Dec, [facility] [place] [facility] [address] [id number] [place] [address]- 2546 Nov, [facility] [address] [id number] [place] [address]- 5589 Nov, [facility] [address] [id number] [place] [address]- 0936 Sep, [facility] [address] [id number] [place] [address]- 4096 Sep, [facility] [address] [id number] [place] [address]- 1861 Sep, [facility] [address] [id number] [place] [address]- 0314 Sep, [facility] [address] [facility] [id number] [place] [address]- 5422 Aug, [facility] [address] [id number] [place] [address]- 8550 Aug, [facility] [address] [id number] [place] [address]- 7907 May, [facility] [address] [id number] [place] [address]- 6490 Apr, [facility] [address] [facility] [id number] [place] [address]- 3594 Mar, [facility] [address] [id number] [place] [address]- 2546 February, [facility] [address] [id number] [place] [address]- 6271 Jan, [facility] [address] [id number] [place] [address]- 4413 Jan, [facility] [address] [id number] [place] [address]- 2546 Jan, [facility] [address] [id number] [place] [address]- 0171 Dec, [facility] [address] [facility] [id number], [place] [address]- 4136 Dec, [facility] [address] [facility] [id number] [address]- 1276 Dec, [facility] [address] [facility] [id number], [place] [address]- 3416 Oct, [facility] [address] [facility] [id number], [place] [address]- 0096 Sep, [facility] [address] [facility] [id number], [place] [address]- 1346 Sep, [facility] [address] [id number] [address]- 9756 Aug, [facility] [address] [address]- 9406 Aug, [facility] [address] [address]- 7206 Aug, [facility] [address], [place] [address]- 6616 Aug, [facility] [address], [place] [address]- 3576 Aug, [facility] [address] [address]- 9996 Jun, [facility] [address] [id number] [address]- 6716 May, [facility] [id number] [address]- 2386 Mar, [facility] [address], [place] [address]- 9606 Sep, IMMUNIZATIONS No Known Immunizations SOCIAL HISTORY Never Assessed REASON FOR VISIT Controlled Med Refill PLAN OF CARE VITAL SIGNS MEDICATIONS No Known Medications RESULTS No Results PROCEDURES No Known procedures INSTRUCTIONS MEDICATIONS ADMINISTERED No Known Medications MEDICAL (GENERAL) HISTORY Type Description Date Medical History scolosis
--- OUTSIDE RECORDS SUMMARY | 2018-08-17 19:44 | XMS REPORT ---
Author Author ESTELA ROSALES Organization [employer] Address Unknown Phone Unavailable Care Team Providers Care General Office Dispatcher Name Role Phone ESTELA ROSALES CP Unavailable Allergies No Known Allergies Problems Problem Type Condition Code Onset Dates Condition Status Problem Acute pharyngitis 462 Active Assessment Low back pain M54.5 Active Problem Intestinal infection due to other organism, NEC 008.8 Active Medications Medication Code System Code Instructions Start Date End Date Status Dosage Tramadol HCl [facility] [id number] 50MG 4 times a day 1 tablet as needed Results No Known Results Summary Purpose eClinicalWorks Submission
--- OUTSIDE RECORDS SUMMARY | 2018-08-17 19:44 | XMS REPORT ---
Author Author ESTELA ROSALES [facility] Address [address] [place] [address] Care Team Providers Care Toby Maker Name Role Phone ESTELA ROSALES Unavailable PROBLEMS Type Condition ICD9-CM Code NZU88-LD Code Onset Dates Condition Status SNOMED Code Problem Other chronic pain G89.29 Active 49839086 Problem Intestinal infection due to other organism, NEC 008.8 Active 10508241 Problem Acute pharyngitis 462 Active 299397444 ALLERGIES No Information SOCIAL HISTORY Never Assessed PLAN OF CARE VITAL SIGNS MEDICATIONS Medication Instructions Dosage Frequency Start Date End Date Duration Status Tramadol HCl 50MG Orally 4 times a day. 1 tablet as needed 28 days Active Omeprazole 40 MG Orally Once a day 1 capsule 24h Dec, 30 day(s ) Active RESULTS No Results PROCEDURES No Known procedures IMMUNIZATIONS No Known Immunizations MEDICAL (GENERAL) HISTORY Type Description Date Medical History scolosis
--- OUTSIDE RECORDS SUMMARY | 2018-08-17 19:44 | XMS REPORT ---
Author Author ESTELA ROSALES [facility] Address [address] [place] [address] Care Team Providers Care Wire Frame Lamp Shade Maker Name Role Phone ESTELA ROSALES Unavailable PROBLEMS Type Condition ICD9-CM Code IXV72-GG Code Onset Dates Condition Status SNOMED Code Problem Other chronic pain G89.29 Active 40715100 Problem Intestinal infection due to other organism, NEC 008.8 Active 15933806 Problem Acute pharyngitis 462 Active 915940652 ALLERGIES Unknown Allergies SOCIAL HISTORY No smoking Hx information available PLAN OF CARE VITAL SIGNS MEDICATIONS Medication Instructions Dosage Frequency Start Date End Date Duration Status Tramadol HCl 50MG Orally 4 times a day. 1 tablet as needed 28 days Active RESULTS No Results PROCEDURES No Known procedures IMMUNIZATIONS No Known Immunizations
--- OUTSIDE RECORDS SUMMARY | 2018-08-17 19:44 | XMS REPORT ---
Author Author ESTELA ROSALES Organization [employer] Address Unknown Phone Unavailable Care Team Providers Care Cook Helper Juice Name Role Phone ESTELA ROSALES CP Unavailable Allergies No Known Allergies Problems Problem Type Condition ICD-9 Code Onset Dates Condition Status Problem Acute pharyngitis 462 Active Assessment Back pain 724.5 Active Problem Intestinal infection due to other organism, NEC 008.8 Active Medications Medication Code System Code Instructions Start Date End Date Status Dosage Tramadol HCl [facility] [id number] 50MG every 6 hrs TAKE ONE TABLET Results No Known Results Summary Purpose eClinicalWorks Submission
--- OUTSIDE RECORDS SUMMARY | 2018-08-17 19:44 | XMS REPORT ---
Author Author ESTELA ROSALES Organization [employer] Address Unknown Phone Unavailable Care Team Providers Care Marketing Analytics Lead Name Role Phone ESTELA ROSALES CP Unavailable Allergies No Known Allergies Problems Problem Type Condition Code Onset Dates Condition Status Problem Acute pharyngitis 462 Active Assessment Back pain 724.5 Active Problem Intestinal infection due to other organism, NEC 008.8 Active Medications Medication Code System Code Instructions Start Date End Date Status Dosage Tramadol HCl [facility] [id number] 50MG every 6 hrs TAKE ONE TABLET Results No Known Results Summary Purpose eClinicalWorks Submission
--- OUTSIDE RECORDS SUMMARY | 2018-08-17 19:44 | XMS REPORT ---
Author Author ESTELA ROSALES Organization [employer] Address Unknown Phone Unavailable Care Team Providers Care Card Cleaner Name Role Phone ESTELA ROSALES CP Unavailable Allergies No Known Allergies Problems Problem Type Condition Code Onset Dates Condition Status Problem Acute pharyngitis 462 Active Problem Intestinal infection due to other organism, NEC 008.8 Active Medications Medication Code System Code Instructions Start Date End Date Status Dosage Tramadol HCl [facility] [id number] 50MG every 6 hrs TAKE ONE TABLET Results No Known Results Summary Purpose eClinicalWorks Submission
--- OUTSIDE RECORDS SUMMARY | 2018-08-17 19:45 | XMS REPORT ---
Author Author ESTELA ROSALES [facility] Address [address] [place] [address] Care Team Providers Care Customer Advisor Name Role Phone ESTELA ROSALES Unavailable PROBLEMS Type Condition ICD9-CM Code MQL33-SP Code Onset Dates Condition Status SNOMED Code Problem Other chronic pain G89.29 Active 52596540 Problem Intestinal infection due to other organism, NEC 008.8 Active 54280925 Problem Acute pharyngitis 462 Active 679533930 ALLERGIES Unknown Allergies SOCIAL HISTORY No smoking Hx information available PLAN OF CARE VITAL SIGNS MEDICATIONS Medication Instructions Dosage Frequency Start Date End Date Duration Status Tramadol HCl 50MG Orally 4 times a day. 1 tablet as needed Oct, 28 days Active RESULTS No Results PROCEDURES No Known procedures IMMUNIZATIONS No Known Immunizations
--- OUTSIDE RECORDS SUMMARY | 2018-08-17 19:45 | XMS REPORT ---
Author Author ESTELA ROSALES Organization [facility] Address [address] [place] [address] Care Team Providers Care Emission Technician Name Role Phone ESTELA ROSALES Unavailable PROBLEMS Type Condition ICD9-CM Code AQN11-DX Code Onset Dates Condition Status SNOMED Code Problem Other chronic pain G89.29 Active 54291956 ALLERGIES No Information ENCOUNTERS Encounter Location Date Diagnosis [facility] [id number] [place] [address] 02977- 0377 Oct, Low back pain M54.5 and Other chronic pain G89.29 [facility] [id number] [place] [address] 74747- 8080 Sep, [facility] [id number] [place] [address] 50748- 0035 Aug, [facility] [id number] [place] [address] 00010- 6307 Jul, [facility] [id number] [place] [address] 69173- 6065 Jul, [facility] [id number] [place] [address] 94723- 7156 Jul, [facility] [id number] [place] [address] 92022- 8007 Jun, [facility] [id number] [place] [address] 80581- 5238 Jun, [facility] [id number] [place] [address] 74030- 1952 May, [facility] [id number] [place] [address] 02301- 3045 Apr, [facility] [address] [id number] [place] [address] 0479 Apr, [facility] [address] [id number] [place] [address] 8856 February, [facility] [address] [id number] [place] [address] 4396 February, [facility] [address] [id number] [place] [address]- 2324 Jan, [facility] [address] [id number] [place] [address]- 8527 Nov, [facility] [address] [id number] [place] [address]- 2021 Oct, [facility] [address] [id number] [place] [address]- 5946 Oct, [facility] [address] [id number] [place] [address]- 1845 Sep, [facility] [address] [id number] [place] [address]- 0826 Aug, Low back pain M54.5 and Other chronic pain G89.29 [facility] [address] [id number] [place] [address]- 6496 Jul, [facility] [address] [id number] [place] [address]- 8919 Jul, [facility] [address] [id number] [place] [address]- 8154 Jul, [facility] [address] [id number] [place] [address]- 0940 May, [facility] [address] [id number] [place] 4779 May, [facility] [address] [id number] [place] [address]- 5812 Apr, [facility] [place] [facility] [address] [facility] [id number] [place] [address] 69912- 3708 Mar, [facility] [address] [facility] [id number] [place] [address] 45253- 4268 February, Low back pain M54.5 [facility] [address] [facility] [id number] [place] [address] 44387- 5704 February, Low back pain M54.5 [facility] [address] [facility] [id number] [place] [address] 23271- 8245 Dec, Low back pain M54.5 and Gastroesophageal reflux disease with esophagitis K21.0 [facility] [id number] [place] [address] 36876- 1368 Dec, [facility] [id number] [place] [address] 57743- 2971 Oct, [facility] [id number] [place] [address] 43099- 3388 Sep, [facility] [address] [facility] [id number] [place] [address] 54753- 7197 Sep, [facility] [id number] [place] [address] 89627- 1805 Aug, Back pain 724.5 [facility] [id number] [place] [address] 99690- 2583 Jul, Back pain 724.5 [facility] [id number] [place] [address] 43613- 1897 Jun, Back pain 724.5 [facility] [address] [facility] [id number] [place] [address] 17009- 2200 May, Back pain 724.5 [facility] [address] [facility] [id number] [place] [address] [id number]- 8986 Apr, [facility] [id number] [place] [address] 51762- 9195 Mar, [facility] [place] [facility] [address] [id number] [place] [address]- 3807 14 Jan, 2015 [facility] [place] [facility] [address] [id number] [place] [address]- 7390 13 Jan, 2015 [facility] [place] [facility] [address] [id number] [place] [address]- 3348 Dec, [facility] [place] [facility] [address] [id number] [place] [address]- 2412 Dec, [facility] [place] [facility] [address] [id number] [place] [address]- 4633 Dec, [facility] [place] [facility] [address] [id number] [place] [address]- 3298 Dec, [facility] [place] [facility] [address] [id number] [place] [address]- 8661 Nov, [facility] [place] [facility] [address] [id number] [place] [address]- 6839 Nov, [facility] [place] [facility] [address] [id number] [place] [address]- 5014 Oct, [facility] [place] [facility] [address] [id number] [place] [address]- 4540 Oct, [facility] [place] [facility] [address] [id number] [place] [address]- 7005 Sep, [facility] [place] [facility] [address] [id number] [place] [address]- 6873 Sep, [facility] [place] [facility] [address] [id number] [place] [address]- 4455 Jul, [facility] [place] [facility] [address] [id number] [place] [address]- 9608 Jul, [facility] [place] [facility] [address] [id number] [place] 7092 Jul, [facility] [place] [facility] [address] [id number] [place] [address]- 4345 Jun, [facility] [place] [facility] [address] [id number] [place] [address]- 0910 Jun, [facility] [place] [facility] [address] [id number] [place] [address]- 1314 Jun, [facility] [place] [facility] [address] [id number] [place] [address]- 7037 Jun, [facility] [place] [facility] [address] [id number] [place] [address]- 4262 May, [facility] [place] [facility] [address] [id number] [place] [address]- 3640 May, [facility] [place] [facility] [address] [id number] [place] [address]- 7984 May, [facility] [place] [facility] [address] [id number] [place] [address]- 3131 May, [facility] [place] [facility] [address] [id number] [place] [address]- 9975 Apr, [facility] [place] [facility] [address] [id number] [place] [address]- 0642 Apr, [facility] [place] [facility] [address] [id number] [place] [address]- 6497 Mar, [facility] [place] [facility] [address] [id number] [place] [address]- 9710 Mar, [facility] [place] [facility] [address] [id number] [place] [address]- 5094 Jan, [facility] [place] [facility] [address] [id number] [place] [address]- 5933 Jan, [facility] [place] [facility] [address] [id number] [place] 7464 Dec, [facility] [place] [facility] [address] [id number] [place] [address]- 3708 Dec, [facility] [place] [facility] [address] [id number] [place] [address]- 2546 Nov, [facility] [address] [id number] [place] [address]- 3413 Nov, [facility] [address] [id number] [place] [address]- 3186 Sep, [facility] [address] [id number] [place] [address]- 1276 Sep, [facility] [address] [id number] [place] [address]- 5043 Sep, [facility] [address] [id number] [place] [address]- 8316 Sep, [facility] [address] [facility] [id number] [place] [address]- 2542 Aug, [facility] [address] [id number] [place] [address]- 8397 Aug, [facility] [address] [id number] [place] [address]- 7444 May, [facility] [address] [id number] [place] [address]- 1242 Apr, [facility] [address] [facility] [id number] [place] [address]- 1763 Mar, [facility] [address] [id number] [place] [address]- 2546 February, [facility] [address] [id number] [place] [address]- 4320 Jan, [facility] [address] [id number] [place] [address]- 8670 Jan, [facility] [address] [id number] [place] [address]- 2546 Jan, [facility] [address] [id number] [place] [address]- 3279 Dec, [facility] [address] [facility] [id number] [address]- 0494 Dec, [facility] [address] [facility] [id number], [place] [address]- 9546 Dec, [facility] [address] [id number] [address]- 9856 Oct, [facility] [address] [address]- 1596 Sep, [facility] [address] [facility] [id number], [place] [address]- 6911 Sep, [facility] [id number] [place] [address] 32885- 2066 Aug, [facility] [address] [address]- 5216 Aug, [facility] [address] [address]- 8296 Aug, [facility] [address] [address]- 5350 Aug, [facility] [address], [place] [address]- 1006 Aug, [facility] [address] [address]- 5756 Jun, [facility] [address] [id number] [address]- 6846 May, [facility] [address] [id number], [place] [address]- 4546 Mar, [facility] [address], [place] [address]- 4956 Sep, IMMUNIZATIONS No Known Immunizations SOCIAL HISTORY Never Assessed REASON FOR VISIT Tramadol refill PLAN OF CARE VITAL SIGNS MEDICATIONS Medication Instructions Dosage Frequency Start Date End Date Duration Status Tramadol HCl 50 MG Orally 4 times a day. 1 tablet as needed 28 days Active RESULTS No Results PROCEDURES No Known procedures INSTRUCTIONS MEDICATIONS ADMINISTERED No Known Medications MEDICAL (GENERAL) HISTORY Type Description Date Medical History scolosis
--- OUTSIDE RECORDS SUMMARY | 2018-08-17 19:45 | XMS REPORT ---
Author Author ESTELA ROSALES Organization [employer] Address Unknown Phone Unavailable Care Team Providers Care Network Architect Manager Name Role Phone ESTELA ROSALES CP Unavailable Allergies, Adverse Reactions, Alerts Substance Reaction Event Type N.K.D.A. Info Not Available Non Drug Allergy Problems Problem Type Condition Code Onset Dates Condition Status Problem Intestinal infection due to other organism, NEC 008.8 Active Problem Acute pharyngitis 462 Active Problem Other chronic pain G89.29 Active Assessment Low back pain M54.5 Active Assessment Other chronic pain G89.29 Active Medications Medication Code System Code Instructions Start Date End Date Status Dosage Omeprazole [facility] [address]-35 40 MG Orally Once a day January 10, 2016 1 capsule Tramadol HCl [facility] 30111988276 50MG 4 times a day. 1 tablet as needed Procedures Procedure Coding System Code Date No Charge CPT-4 51267 Aug 25, 2016 Office Visit, Est Pt., Level 3 CPT-4 79874 Aug 25, 2016 Vital Signs Date/Time: Aug 25, 2016 Cardiac Monitoring Heart Rate 96 bpm Weight 128.7 lbs Height 69 in BMI 19.00 Index Blood Pressure Diastolic 68 mmHg Blood Pressure Systolic 118 mmHg Results Name Result Date Reference Range Unit Abnormality Flag [employer] Summary Purpose [employer] Submission
--- OUTSIDE RECORDS SUMMARY | 2018-08-17 19:45 | XMS REPORT | Continuity of Care Document ---
Author Author [facility] Address Unknown Phone Unavailable Allergies Active Description Code Type Severity Reaction Onset Reported/Identified Relationship to Patient Clinical Status Yes No Known Drug Allergies [id number] Drug Allergy Unknown N/A 06/10/2011 Medications There is no data. Problems Date Dx Coded Attending Type Code Diagnosis Diagnosed By 06/10/2011 Ot 873.0 OPEN WOUND OF SCALP 06/10/2011 Ot 873.43 OPEN WOUND OF LIP 06/10/2011 Ot E000.8 OTHER EXTERNAL CAUSE STATUS 06/10/[address]/HIGHWAY 06/10/2011 Ot E888.9 FALL NOS 06/20/2011 Ot V58.32 ENCOUNTER FOR REMOVAL OF SUTURES 09/14/2011 ESTELA ROSALES APRN 724.2 LUMBAGO 09/14/2011 ESTELA ROSALES APRN 724.2 LUMBAGO 09/14/2011 724.2 LUMBAGO 09/14/2011 724.2 LUMBAGO 09/14/2011 724.2 LUMBAGO 09/14/2011 ESTELA ROSALES APRN 724.2 LUMBAGO 09/14/2011 ESTELA ROSALES APRN 724.2 L[place]O 09/14/2011 ESTELA ROSALES APRN 724.2 LUMBAGO 02/07/2013 462 PHARYNGITIS 02/07/2013 ESTELA ROSALES APRN 462 PHARYNGITIS 02/07/2013 ESTELA ROSALES APRN 462 PHARYNGITIS 02/07/2013 ESTELA ROSALES APRN 462 PHARYNGITIS 11/19/2013 ESTELA ROSALES APRN 008.8 GASTROENTERITIS, VIRAL 11/19/2013 ESTELA ROSALES APRN 008.8 GASTROENTERITIS, VIRAL 11/14/2015 Ot F12.10 CANNABIS ABUSE, UNCOMPLICATED 11/14/2015 Ot F17.210 NICOTINE DEPENDENCE, CIGARETTES, UNCOMPL 11/14/2015 Ot K21.9 GASTRO- ESOPHAGEAL REFLUX DISEASE WITHOUT 11/14/2015 Ot R07.89 OTHER CHEST PAIN 05/18/2016 VIDYA YA APRN Ot F17.210 NICOTINE DEPENDENCE, CIGARETTES, UNCOMPL 05/18/2016 VIDYA YA APRN Ot S51.812A LACERATION WITHOUT FOREIGN BODY OF LEFT 05/18/2016 VIDYA YA APRN Ot W26.0XXA CONTACT WITH KNIFE, INITIAL ENCOUNTER 05/18/2016 VIDYA YA APRN Ot Y92.[address] IN [facility] NON[facility] (PRIVATE 05/18/2016 VIDYA YA APRN Ot Y99.8 OTHER EXTERNAL CAUSE STATUS 05/19/2016 VIDYA YA APRN Ot F17.210 NICOTINE DEPENDENCE, CIGARETTES, UNCOMPL 05/19/2016 VIDYA YA APRN Ot S51.812A LACERATION WITHOUT FOREIGN BODY OF LEFT 05/19/2016 VIDYA YA APRN Ot W26.0XXA CONTACT WITH KNIFE, INITIAL ENCOUNTER 05/19/2016 VIDYA YA APRN Ot Y92.[address] IN [facility] NON-[facility] (PRIVATE 05/19/2016 VIDYA YA APRN Ot Y99.8 OTHER EXTERNAL CAUSE STATUS Procedures There is no data. Results There is no data. Encounters ACCT No. Visit Date/Time Discharge Status Pt. Type Provider Facility Loc./Unit Complaint [id number] 08/05/2014 11:22:00 08/05/2014 23:59:59 [facility] Outpatient ESTELA ROSALES APRN [id number] 11/19/2013 16:52:00 11/19/2013 23:59:59 [facility] Outpatient ESTELA ROSALES APRN [id number] 03/18/2013 16:31:00 03/18/2013 23:59:59 [facility] Outpatient ESTELA ROSALES APRN [id number] 01/17/2013 11:15:00 01/17/2013 23:59:59 [facility] Outpatient [id number] 12/27/2012 11:42:00 12/27/2012 23:59:59 [facility] Outpatient [id number] 08/21/2012 12:41:00 08/21/2012 23:59:59 [facility] Outpatient ESTELA ROSALES APRN [id number] 08/21/2012 12:41:00 08/21/2012 23:59:59 [facility] Outpatient ESTELA ROSALES APRN [id number] 02/07/2013 10:02:00 Document Registration [id number] 05/18/2016 19:05:00 05/18/2016 20:09:00 DIS Emergency VIDYA YA APRN [facility] LEFT ARM INJ [id number] 03/18/2016 16:40:00 03/18/2016 23:59:59 [facility] Outpatient RICHARD RODRIGUEZ APRN [facility] [id number] 11/14/2015 21:46:00 Document Registration [id number] 06/20/2011 16:55:00 Document Registration [id number] 06/10/2011 06:20:00 Document Registration [id number] 10/26/2017 15:00:00 10/26/2017 23:59:59 [facility] Outpatient ESTELA ROSALES APRN [facility]
--- OUTSIDE RECORDS SUMMARY | 2018-08-17 19:45 | XMS REPORT ---
Author Author ESTELA ROSALES Organization [employer] Address Unknown Phone Unavailable Care Team Providers Care Academic Hospitalist Name Role Phone ESTELA ROSALES CP Unavailable Allergies No Known Allergies Problems Problem Type Condition Code Onset Dates Condition Status Problem Acute pharyngitis 462 Active Assessment Back pain 724.5 Active Problem Intestinal infection due to other organism, NEC 008.8 Active Medications Medication Code System Code Instructions Start Date End Date Status Dosage Tramadol HCl [facility] [id number] 50MG every 6 hrs TAKE ONE TABLET Results No Known Results Summary Purpose [employer] Submission
--- OUTSIDE RECORDS SUMMARY | 2018-08-17 19:45 | XMS REPORT ---
Author Author ESTELA ROSALES Organization [employer] Address Unknown Phone Unavailable Care Team Providers Care Eyelet Maker Name Role Phone ESTELA ROSALES CP Unavailable Allergies No Known Allergies Problems Problem Type Condition Code Onset Dates Condition Status Problem Acute pharyngitis 462 Active Problem Intestinal infection due to other organism, NEC 008.8 Active Medications Medication Code System Code Instructions Start Date End Date Status Dosage Tramadol HCl [facility] 16690914616 50MG every 6 hrs TAKE ONE TABLET Results No Known Results Summary Purpose [employer] Submission
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
[2018-08-17 20:08] LABS: BASOPHILS # (AUTO) 0.1 10^3/uL (0.0-0.1); BASOPHILS % (AUTO) 1 % (0-10); EOSINOPHILS # (AUTO) 0.1 10^3/uL (0.0-0.3); EOSINOPHILS % (AUTO) 1 % (0-10); HEMATOCRIT 39 % (40-54); HEMOGLOBIN 13.7 G/DL (13.3-17.7); LYMPHOCYTES # (AUTO) 2.3 X 10^3 (1.0-4.0); LYMPHOCYTES % (AUTO) 25 % (12-44); MEAN CORPUSCULAR HEMOGLOBIN 32 PG (25-34); MEAN CORPUSCULAR HGB CONC 35 G/DL (32-36); MEAN CORPUSCULAR VOLUME 92 FL (80-99); MEAN PLATELET VOLUME 9.9 FL (7.4-10.4); MONOCYTES % (AUTO) 11 % (0-12); NEUTROPHILS # (AUTO) 5.7 X 10^3 (1.8-7.8); NEUTROPHILS % (AUTO) 63 % (42-75); PLATELET COUNT 266 10^3/uL (130-400); RED BLOOD COUNT 4.29 10^6/uL (4.35-5.85); WHITE BLOOD COUNT 9.1 10^3/uL (4.3-11.0)
[2018-08-17 20:30] LABS: ALANINE AMINOTRANSFERASE 11 U/L (0-55); ALBUMIN 4.3 GM/DL (3.2-4.5); ALKALINE PHOSPHATASE 49 U/L (40-136); BILIRUBIN,TOTAL 1.4 MG/DL (0.1-1.0); BUN/CREATININE RATIO 19; CALCIUM 9.1 MG/DL (8.5-10.1); CARBON DIOXIDE 23 MMOL/L (21-32); CHLORIDE 105 MMOL/L (98-107); CREATININE SERUM 0.84 MG/DL (0.60-1.30); GFR ESTIMATED > 60; GLUCOSE 91 MG/DL (70-105); POTASSIUM 3.6 MMOL/L (3.6-5.0); SALICYLATE < 5.0 MG/DL (5.0-20.0); SODIUM 141 MMOL/L (135-145); TOTAL PROTEIN 6.9 GM/DL (6.4-8.2)
[2018-08-17 20:34] LABS: ACETAMINOPHEN < 10 UG/ML (10-30)
[2018-08-17 20:57] VITALS: BP 106/70
== END 2018-08-17 20:58 ==
LOC: EDUNIT# 19:33 → ER 19:35
DX: F10.120 Alcohol abuse with intoxication, uncomplicated (principal); F17.210 Nicotine dependence, cigarettes, uncomplicated
CPT/HCPCS: 36415; 80053; 80320; 80329; 82962; 85025

== ENCOUNTER 2019-01-01 19:35 | Emergency (ER) | payer SELFPAY ==
[~2019-01-01] VITALS: Ht 177.8 cm; Wt 63.5 kg
--- OUTSIDE RECORDS SUMMARY | 2019-01-01 19:42 | XMS REPORT | Continuity of Care Document ---
Author Author [facility] [place] Address Unknown Phone Unavailable Allergies Active Description Code Type Severity Reaction Onset Reported/Identified Relationship to Patient Clinical Status Yes No Known Drug Allergies [id number] Drug Allergy Unknown N/A 06/10/2011 Medications There [...] 11/14/2015 Ot R07.89 OTHER CHEST PAIN 05/18/2016 YAVIDYA CAZARES HOOF TRIMMER Ot F17.210 NICOTINE DEPENDENCE, CIGARETTES, UNCOMPL 05/18/2016 YAVIDYA CAZARES HOOF TRIMMER Ot S51.812A LACERATION WITHOUT FOREIGN BODY OF LEFT 05/18/2016 VIDYA YA KRISTINE Ot W26.0XXA CONTACT WITH KNIFE, INITIAL ENCOUNTER 05/18/2016 YAVIDYA CAZARES KRISTINE Ot Y92.[address] [facility] 05/18/2016 VIDYA YA HOOF TRIMMER Ot Y99.8 OTHER EXTERNAL CAUSE STATUS 05/19/2016 YA VIDYA Saini HOOF TRIMMER Ot F17.210 NICOTINE DEPENDENCE, CIGARETTES, UNCOMPL 05/19/2016 YAVIDYA CAZARES KRISTINE Ot S51.812A LACERATION WITHOUT FOREIGN BODY OF LEFT 05/19/2016 YAVIDYA CAZARES KRISTINE Ot W26.0XXA CONTACT WITH KNIFE, INITIAL ENCOUNTER 05/19/2016 VIDYA YA APRN Ot Y92.[address] IN [facility] ([facility] 05/19/2016 YA VIDYA Saini HOOF TRIMMER Ot Y99.8 OTHER EXTERNAL CAUSE STATUS 08/20/2018 DION DAVIS, ALICIA Matt Ot F10.120 ALCOHOL ABUSE WITH INTOXICATION, UNCOMPL 08/20/2018 ALICIA ASHLEY MD Ot F17.210 NICOTINE DEPENDENCE, CIGARETTES, UNCOMPL Procedures There is no data. Results Test Result Range Capillary blood glucose measurement by glucometer (mass/volume) - 08/17/18 19: 54 Capillary blood glucose measurement by glucometer (mass/volume) 98 mg/dL 70-110 Complete blood count (CBC) with automated white blood cell (WBC) differential - 08/17/18 19:58 Blood leukocytes automated count (number/volume) 9.1 10*3/uL 4.3-11.0 Blood erythrocytes automated count (number/volume) 4.29 10*6/uL 4.35-5.85 Venous blood hemoglobin measurement (mass/volume) 13.7 g/dL 13.3-17.7 Blood hematocrit (volume fraction) 39 % 40-54 Automated erythrocyte mean corpuscular volume 92 [foz_us] 80-99 Automated erythrocyte mean corpuscular hemoglobin (mass per erythrocyte) 32 pg 25-34 Automated erythrocyte mean corpuscular hemoglobin concentration measurement ( mass/volume) 35 g/dL 32-36 Automated erythrocyte distribution width ratio 13.0 % 10.0-14.5 Automated blood platelet count (count/volume) 266 10*3/uL 130-400 Automated blood platelet mean volume measurement 9.9 [foz_us] 7.4-10.4 Automated blood neutrophils/100 leukocytes 63 % 42-75 Automated blood lymphocytes/100 leukocytes 25 % 12-44 Blood monocytes/100 leukocytes 11 % 0-12 Automated blood eosinophils/100 leukocytes 1 % 0-10 Automated blood basophils/100 leukocytes 1 % 0-10 Blood neutrophils automated count (number/volume) 5.7 10*3 1.8-7.8 Blood lymphocytes automated count (number/volume) 2.3 10*3 1.0-4.0 Blood monocytes automated count (number/volume) 1.0 10*3 0.0-1.0 Automated eosinophil count 0.1 10*3/uL 0.0-0.3 Automated blood basophil count (count/volume) 0.1 10*3/uL 0.0-0.1 Comprehensive metabolic panel - 08/17/18 19:58 Serum or plasma sodium measurement (moles/volume) 141 mmol/L 135-145 Serum or plasma potassium measurement (moles/volume) 3.6 mmol/L 3.6-5.0 Serum or plasma chloride measurement (moles/volume) 105 mmol/L 98-107 Carbon dioxide 23 mmol/L 21-32 Serum or plasma anion gap determination (moles/volume) 13 mmol/L 5-14 Serum or plasma urea nitrogen measurement (mass/volume) 16 mg/dL 7-18 Serum or plasma creatinine measurement (mass/volume) 0.84 mg/dL 0.60-1.30 Serum or plasma urea nitrogen/creatinine mass ratio 19 NRG Serum or plasma creatinine measurement with calculation of estimated glomerular filtration rate > NRG Serum or plasma glucose measurement (mass/volume) 91 mg/dL 70-105 Serum or plasma calcium measurement (mass/volume) 9.1 mg/dL 8.5-10.1 Serum or plasma total bilirubin measurement (mass/volume) 1.4 mg/dL 0.1-1.0 Serum or plasma alkaline phosphatase measurement (enzymatic activity/volume) 49 U/L 40-136 Serum or plasma aspartate aminotransferase measurement (enzymatic activity/ volume) 14 U/L 5-34 Serum or plasma alanine aminotransferase measurement (enzymatic activity/volume ) 11 U/L 0-55 Serum or plasma protein measurement (mass/volume) 6.9 g/dL 6.4-8.2 Serum or plasma albumin measurement (mass/volume) 4.3 g/dL 3.2-4.5 CALCIUM CORRECTED 8.9 mg/dL 8.5-10.1 Serum or plasma salicylates measurement (mass/volume) - 08/17/18 19:58 Serum or plasma salicylates measurement (mass/volume) < mg/dL 5.0-20.0 Serum or plasma acetaminophen measurement (mass/volume) - 08/17/18 19:58 Serum or plasma acetaminophen measurement (mass/volume) < ug/mL 10-30 Serum or plasma ethanol measurement (mass/volume) - 08/17/18 19:58 Serum or plasma ethanol measurement (mass/volume) 268 mg/dL <10 Encounters ACCT No. Visit Date/Time Discharge Status Pt. Type Provider Facility Loc./Unit Complaint [id number] 08/05/2014 11:22:00 08/05/2014 23:59:59 CLS Outpatient ESTELA ROSALES APRN [id number] 11/19/2013 16:52:00 11/19/2013 23:59:59 CLS Outpatient ESTELA ROSALES APRN [id number] 03/18/2013 16:31:00 03/18/2013 23:59:59 CLS Outpatient ESTELA ROSALES APRN [id number] 01/17/2013 11:15:00 01/17/2013 23:59:59 CLS Outpatient [id number] 12/27/2012 11:42:00 12/27/2012 23:59:59 CLS Outpatient [id number] 08/21/2012 12:41:00 08/21/2012 23:59:59 CLS Outpatient ESTELA ROSALES APRN [id number] 08/21/2012 12:41:00 08/21/2012 23:59:59 CLS Outpatient ESTELA ROSALES APRN [id number] 02/07/2013 10:02:00 Document Registration [id number] 08/17/2018 19:35:00 08/17/2018 20:58:00 DIS Outpatient ALICIA ASHLEY MD [facility] [id number] 05/18/2016 19:05:00 05/18/2016 20:09:00 DIS Emergency FELTONVIDYA APRN [facility] ER LEFT ARM INJ [id number] 03/18/2016 16:40:00 03/18/2016 23:59:59 CLS Outpatient RICHARD RODRIGUEZ APRN [facility] QUICK [id number] 11/14/2015 21:46:00 Document Registration [id number] 06/20/2011 16:55:00 Document Registration [id number] 06/10/2011 06:20:00 Document Registration [id number] 10/26/2017 15:00:00 10/26/2017 23:59:59 CLS Outpatient ESTELA ROSALES APRN [facility]
--- NOTE | 2019-01-01 20:24 | ED General ---
General Chief Complaint: Laceration Stated Complaint: FACIAL LACERATION Nursing Triage Note: pt states between 2195-1687 last night fell, hit head/face. left jaw area swollen, gaping open Nursing Sepsis Screen: No Definite Risk Source of Information: Patient Exam Limitations: No Limitations History of Present Illness Date Seen by Provider: Jan 01, 2019 Time Seen by Provider: 20:05 Initial Comments 28-year-old male patient presents to the emergency department complains of a laceration to his left jaw. Injury occurred last night at approximately 1999 2199. Patient reports tripping and falling on the porch hitting the left side of his face on a potted plant. Patient states he did NOT want to come to the ED last night, but today was concerned it needed stitches. Denies loss of consciousness, confusion, headache, neck pain, difficulty swallowing, difficulty breathing, or back pain. Patient states his teeth line up normally. He states he ate a large Cheeseburger and fries from [employer] without difficulty just prior to coming to the emergency department. Location Injury Occurred: home Timing/Duration: Other ([id number] last night. ) Modifying Factors: improves with Other (showered last night to clean the wound. ) Allergies and Home Medications Allergies Coded Allergies: No Known Drug Allergies (Unverified , 06/10/11) Home Medications Sulfamethoxazole/Trimethoprim 1 Each Tablet, 1 EACH PO BID Prescribed by: KRISTEN SOTO on 01/01/192041 Patient Home Medication List Home Medication List Reviewed: Yes Review of Systems Review of Systems Constitutional: No chills, No diaphoresis, No dizziness, No fever, No malaise EENTM: other (laceration to the left jaw); No ear discharge, No ear pain, No blurred vision, No double vision, No eye pain, No tearing, No vision loss, No hoarseness, No epistaxis, No nose pain, No throat pain, No throat swelling Respiratory: No cough, No dyspnea on exertion, No short of breath, No stridor, No wheezing Cardiovascular: no symptoms reported Gastrointestinal: no symptoms reported Musculoskeletal: No back pain, No joint pain, No neck pain Skin: see HPI, other (laceration left jaw) Psychiatric/Neurological: Denies Headache, Denies Numbness, Denies Paresthesia , Denies Seizure, Denies Tingling, Denies Weakness All Other Systems Reviewed Negative Unless Noted: Yes (Negative excepted noted.) Past Dfpnxdh-Qtaaym-Eiwtoc Hx Past Med/Social Hx: Reviewed Nursing Past Med/Soc Hx Patient Social History Alcohol Use: Regular Use Alcohol Beverage of Choice: Beer Recreational Drug Use: No Smoking Status: Current Everyday Smoker Type Used: Cigarettes 2nd Hand Smoke Exposure: Yes Recent Foreign Travel: No Contact w/Someone Who Travel: No Recent Infectious Disease Expo: No Recent Hopitalizations: No Immunizations Up To Date Tetanus Booster (TDap): Less than 5yrs (pt reports tetanus booster 1 year ago.) Seasonal Allergies Seasonal Allergies: No Past Medical History Surgeries: No Respiratory: No Cardiac: No Neurological: No Reproductive Disorders: No Sexually Transmitted Disease: No HIV/AIDS: No Gastrointestinal: No Musculoskeletal: Yes Scoliosis, Chronic Back Pain Endocrine: No Cancer: No Psychosocial: No Integumentary: No Blood Disorders: No Adverse Reaction/Blood Tranf: No Family Medical History Reviewed Nursing Family Hx No Pertinent Family Hx Physical Exam Vital Signs Vital Signs - First Documented 01/01/19 19:42 Temp 98.1 Pulse 102 Resp 18 B/P (MAP) 125/76 (92) Pulse Ox 98 O2 Delivery Room Air Capillary Refill : Less Than 3 Seconds Height, Weight, BMI Height: 5'10.00" Weight: 140lbs. oz. 63.526574ri; BMI Method:Stated General Appearance: No Apparent Distress, WD/WN Eyes: Bilateral Eye Normal Inspection, Bilateral Eye PERRL, Bilateral Eye EOMI HEENT: PERRL/EOMI, TMs Normal, Normal ENT Inspection, Pharynx Normal, Other ( 6x 1.5 cm irregular laceration to the left lower jaw without erythema, warmth, foreign body, or drainage. mild to moderate swelling at the laceration site. SC tissue exposed in the bed of the wound. minimal bony tenderness. 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 mild to moderate swelling at the laceration site. SC tissue exposed in the bed of the wound.) Procedures/Interventions Suture Size: 4-0 Progress/Results/Core Measures Suspected Sepsis Recent Fever Within 48 Hours: No Infection Criteria Present: None New/Unexplained Altered Menta: No Sepsis Screen: No Definite Risk SIRS Temperature:98.1 Pulse: 102 Respiratory Rate: 18 Blood Pressure 125 /76 Mean: 92 Results/Orders Vital Signs/I&O 01/01/19 19:42 Temp 98.1 Pulse 102 Resp 18 B/P (MAP) 125/76 (92) Pulse Ox 98 O2 Delivery Room Air Capillary Refill : Less Than 3 Seconds Blood Pressure Mean: 92 Departure Communication (Admissions) Patient seen and evaluated. Wound scrubbed with chlorhexidine and sterile saline. Skin edges loosely reapproximated with Mastisol and Steri-Strips. Plan for dsch to home with oral antibiotics. Patient to shower with antibacterial soap. Patient instructed to f/u with [facility] for recheck early next week. Impression Primary Impression: Laceration of face with delay in treatment Qualified Codes: S01.81XA - Laceration without foreign body of other part of head, initial encounter Disposition: 01 HOME, SELF-CARE Condition: Improved Departure-Patient Inst. Decision time for Depature: 20:41 [facility] (PCP/Family) Primary Care Physician Patient Instructions: Wound Care (DC) Add. Discharge Instructions: All discharge instructions reviewed with patient and/or family. Voiced understanding. Medications as instructed. Tylenol extra strength over-the- counter as directed for pain. Ibuprofen 800 mg by mouth every 8 hours as needed for pain. Tomorrow morning you may shower with antibacterial soap. Avoid scrubbing the laceration site vigorously. Ice pack as needed. Follow-up with your primary care provider early next week for recheck, call tomorrow morning for appointment time. Return in the emergency department for worsened symptoms, redness, fever, drainage, or any other concerns. Scripts Sulfamethoxazole/Trimethoprim (Bactrim Ds Tablet) 1 Each Tablet 1 EACH PO BID, #14 TAB 0 Refills Prov: KRISTEN SOTO 01/01/19 KRISTEN SOTO Jan 01, 2019 20:24
[2019-01-01] MEDS ORDERED: SULF1TAB35 PO (20:42)
[2019-01-01 20:47] VITALS: BP 123/77
== END 2019-01-01 20:48 | disposition home or self-care (01) ==
LOC: EDUNIT# 19:35 → ER 19:36
DX: S01.81XA Laceration without foreign body of other part of head, initial encounter (principal); M41.9 Scoliosis, unspecified; F17.210 Nicotine dependence, cigarettes, uncomplicated; W01.198A Fall on same level from slipping, tripping and stumbling with subsequent striking against other object, initial encounter
CPT/HCPCS: 12013

== ENCOUNTER 2020-01-07 16:54 | Emergency (ER) | payer SELFPAY ==
[~2020-01-07] VITALS: Ht 180 cm; Wt 85.0 kg
[~2020-01-07 16:54] MED LIST changes: +SULF1TAB35 PO
[2020-01-07] MEDS ORDERED: LIDOCAINE 1% INJ 20 ML 20 ML VIAL INJ ONE (17:15)
[2020-01-07] MEDS ORDERED: TETANUS,DIPTH,PERTUSS P/F (BOOSTRIX) 0.5 ML VIAL IM ONE (17:15)
[2020-01-07] MEDS ORDERED: CEPH500T PO (18:04)
--- NOTE | 2020-01-07 18:04 | ED Upper Extremity ---
General Chief Complaint: Upper Extremity Stated Complaint: LEFT ARM LACERATION Nursing Triage Note: THE PT IS AMBULATORY TO THE ROOM WIOTHOUT DIFFICULTY. NO DISTRESS OR ACTIVE BLEEDING IS SEEN ON ARRIVAL. LOC IS NORMAL FOR THE PT. Nursing Sepsis Screen: No Definite Risk History of Present Illness Date Seen by Provider: Jan 07, 2020 Time Seen by Provider: 17:25 Initial Comments 29-year-old male presents for laceration to his left forearm. Patient states he was getting down from a ladder when he caught his left forearm on a broken window. The glass caused a laceration to his left forearm. He is unsure of the last time he received a tetanus vaccine. He is right-hand dominant he denies any other complaints at this time. Pain/Injury Location: left forearm Method of Injury: incised Allergies and Home Medications Allergies Coded Allergies: No Known Drug Allergies (Unverified , 06/10/11) Home Medications Cephalexin 500 Mg Tablet, 500 MG PO TID Prescribed by: KEY PORTILLO on 01/07/201803 Sulfamethoxazole/Trimethoprim 1 Each Tablet, 1 EACH PO BID Prescribed by: KRISTEN SOTO on 01/01/192041 Patient Home Medication List Home Medication List Reviewed: Yes Review of Systems Constitutional: no symptoms reported, see HPI Skin: see HPI, other (laceration left forearm) All Other Systems Reviewed Negative Unless Noted: Yes Past Cgnvcym-Dyobmw-Pvmozb Hx Past Med/Social Hx: Reviewed Nursing Past Med/Soc Hx Patient Social History Alcohol Beverage of Choice: Beer Type Used: Cigarettes 2nd Hand Smoke Exposure: Yes Recent Foreign Travel: No Contact w/Someone Who Travel: No Recent Infectious Disease Expo: No Recent Hopitalizations: No Physical Abuse: No Sexual Abuse: No Mistreated: No Fear: No Immunizations Up To Date Tetanus Booster (TDap): Less than 5yrs Seasonal Allergies Seasonal Allergies: No Past Medical History Surgeries: No Respiratory: No Cardiac: No Neurological: No Reproductive Disorders: No Sexually Transmitted Disease: No HIV/AIDS: No Gastrointestinal: No Musculoskeletal: Yes Scoliosis, Chronic Back Pain Endocrine: No Cancer: No Psychosocial: No Integumentary: No Blood Disorders: No Adverse Reaction/Blood Tranf: No Family Medical History No Pertinent Family Hx Physical Exam Vital Signs Vital Signs - First Documented 01/07/20 01/07/20 17:21 18:10 Temp 37.0 Pulse 90 Resp 16 B/P (MAP) 142/97 (112) Pulse Ox 98 Capillary Refill : Less Than 3 Seconds Height, Weight, BMI Height: 5'10.00" Weight: 140lbs. oz. 63.868635tz; 26.00 BMI Method:Stated General Appearance: WD/WN, no apparent distress Cardiovascular: normal peripheral pulses, regular rate, rhythm, no murmur Respiratory: chest non-tender, lungs clear, normal breath sounds Elbow/Forearm: normal ROM, Left, abrasions (8 cm laceration left forearm), soft tissue tenderness Neurologic/Tendon: normal sensation, normal motor functions, normal tendon functions Neurologic/Psychiatric: no motor/sensory deficits, alert, normal mood/affect, oriented x 3 Procedures/Interventions Wound Location: Upper Extremities (left forearm) Wound Length (cm): 8 Wound's Depth, Shape: superficial Wound Explored: clean Irrigated w/ Saline (ccs): 500 Betadine Prep?: Yes Anesthesia: 1% Lidocaine Volume Anesthetic (ccs): 10 Suture: Ethlion Suture Size: 4-0 Number of Sutures: 10 Sterile Dressing Applied?: Yes Progress Wound well approximated, the patient tolerated the procedure well. Sterile bulky dressing applied. Progress/Results/Core Measures Results/Orders My Orders Orders - KEY PORTILLO Dipht,Pertuss(Acell),Tet Adult (Boostrix (01/07/20 17:15) Lidocaine 1% Inj 20 Ml (Xylocaine 1% Inj (01/07/20 17:15) Medications Given in ED Current Medications Medications Dose Ordered Sig/Trupti Route Start Time Stop Time Status Last Admin Dose Admin Diphtheria/ Tetanus/Acell Pertussis 0.5 ml ONCE ONCE IM 01/07/20 17:15 01/07/20 17:16 DC 01/07/20 17:13 0.5 ML Lidocaine HCl 20 ml ONCE ONCE INJ 01/07/20 17:15 01/07/20 17:16 DC 01/07/20 17:10 20 ML Vital Signs/I&O 01/07/20 01/07/20 17:21 18:10 Temp 37.0 36.7 Pulse 90 90 Resp 16 16 B/P (MAP) 142/97 (112) 137/90 Pulse Ox 98 2 Blood Pressure Mean: 112 Departure Impression Primary Impression: Laceration of left forearm Qualified Codes: S51.812A - Laceration without foreign body of left forearm, initial encounter Disposition: HOME, SELF-CARE Condition: Improved Departure-Patient Inst. Decision time for Depature: 18:00 Referrals: [facility] (PCP/Family) Primary Care Physician Patient Instructions: Laceration Repair With Stitches (DC) Add. Discharge Instructions: Keep wound clean and dry for the next 24 hours. On Th you may remove the dressing and shower as normal, do not allow water to hit directly on the wound. After showering clean the wound with peroxide and apply a dressing. Continue to change her dressing twice daily, you may leave it open to air when at home. Do not submerge the left forearm wound into standing water: Bathtub, hot tub, swimming, etc. Take antibiotics as prescribed. Ice and elevate the left forearm for 20 minutes if it is throbbing or painful. He may alternate between Tylenol 650 mg and ibuprofen 600 mg every 4 hours for pain. Follow-up at replaced by [facility] or return to the emergency department in 7-10 days to have sutures removed. Watch for signs of infection: Redness, increased pain, increased swelling, discolored drainage, fever greater than 101. Return to the emergency department for new, urgent health care problems. All discharge instructions reviewed with patient and/or family. Voiced understanding. Scripts Cephalexin (Cephalexin) 500 Mg Tablet 500 MG PO TID, #15 TAB 0 Refills Prov: KEY PORTILLO 01/07/20 KEY PORTILLO Jan 07, 2020 18:04
[2020-01-07 18:10] VITALS: BP 137/90
--- OUTSIDE RECORDS SUMMARY | 2020-01-07 19:47 | XMS REPORT ---
Author Author [place]. Organization [facility] Address [address] [address] Care Team Providers Care Trial Court Justice Name Role Phone ESTELA ROSALES Unavailable Unavailable [facility] Unavailable CONNIE ESTELA Unavailable CONNIE, ESTELA Unavailable CONNIE, ESTELA Unavailable CONNIE, ESTELA Unavailable CONNIE, ESTELA Unavailable CONNIE ESTELA Unavailable CONNIE ESTELA Unavailable CONNIE ESTELA Unavailable CONNIE ESTELA Unavailable CONNIE ESTELA Unavailable [facility] Unavailable [phone] [facility] PCP [phone] Migration, Doctor Unavailable Unavailable Migration, Doctor Unavailable Unavailable Migration, Doctor Unavailable Unavailable CONNIE, ESTELA Unavailable CONNIE, ESTELA Unavailable CONNIE, ESTELA Unavailable CONNIE, ESTELA Unavailable CONNIE, ESTELA Unavailable CONNIE, ESTELA Unavailable CONNIE, ESTELA Unavailable CONNIE, ESTELA Unavailable CONNIE ESTELA Unavailable CONNIE, ESTELA Unavailable CONNIE ESTELA Unavailable CONNIE ESTELA Unavailable [facility] PCP Allergies Normalized Allergy Reported Date of Reaction(s) Care Provider Facility Allergy Type classification allergen Allergy Onset DA (3 Unclassified No Known Drug 06-10-2011 - no information ALICIA Not Available sources.) Allergies MD DION (26713) Medications Current Medications Medication Ingredient Drug Dose Dates Status Sig Sig Care Class(es) (Normalized) (Original) Provid er cephalexin Cephalexin Cephalospor 01-07-20 Active no Cephale juliana no 500 mg oral in 20 information Active 500 name tablet (1 Antibacteri ORAL Three (no source.) al Times A Day phone) January 07, 2020 6:04pm sulfamethox Sulfamethox Dihydrofola 01-02-20 Active no Sulfa methoxa no azole 800 azole / te 19 information zole/Trimeth n roxi mg / Trimethopri Reductase oprim Active (no trimethopri m Inhibitor 1 ORAL Twice phone) m 160 mg Antibacteri A Day 14 oral tablet al, January 01, (2 Sulfonamide 2018 8:42pm sources.) Antimicrobi al Completed/Discontinued Medications Medication Ingredient Drug Dose Dates Status Sig Sig Care Class(es) (Normalized) (Original) Provid er no Acetaminoph Opioid 06-10-20 Complete no Acetaminophe no information en / Agonist 11 - d information n/Hydrocodo n name (1 source.) HYDROcodone 05-18-20 e Bitart (no 16 Discontinued phone) 1 ORAL Q4hr Prn June 10, 2011 6:47am May 18, 2016 no Acetaminoph no 06-10-20 Complete take 5-500 Acetaminop he Willia information en/Hydrocod information 11 - d tablets by n/H ydrocodon nikkie L (2 one Bitart 05-18-20 mouth every e Bitart [employer] sources.) (Vicodin 16 four hours (Vicodin on (no 5-500 as needed, 5-500 phone) Tablet) 1 then take 1 Tablet) 1 Each tablet by Each Tablet, Tablet, 1 mouth as 1 Each Oral Each Oral needed Q4hr Prn 06/10/11 Discontinued Problems Active Problems Problem Normalized Date of Normalized Normalized Provider Fac ility Classification Problem(s) Problem Problem Problem Sta tus Onset/Resoluti Duration on Alcohol-relate Alcohol abuse Chronic Active ALICIA Not Available d disorders (9 Translations: MD DION (28983) sources.) [ ALCOHOL ABUSE WITH INTOXICATION, UNCOMPL, Alcoholic intoxication, Alcohol abuse] Immunizations Encounter for Episodic Active ESTELA Hilario ommunity and screening immunization [address] [facility] [[email or web address] for infectious Translations: of [place] disease (3 [ - Encounter [place] (38267) sources.) for immunization Z23] Open wounds of Laceration of Episodic Active [facility] extremities (1 [facility] source.) [address] [place] [address] ([address]) Open wounds of Laceration Episodic Active KRISTEN Not Av ailable head; neck; without ROBERTO SOTO (11562) and trunk (4 foreign body sources.) of other part of head, initial encounter Translations: [ Laceration of face with delay in treatment] Mood disorders Mood disorder Chronic Active [facility] (6 sources.) Translations: [address] [place] [address] [ Mood of [place] disorder, - [place] (45369) Mood disorder F39] Substance-rela Nicotine Chronic Active ALICIA Not Avai lable jennyfer disorders dependence, MD DION (71565) (3 sources.) cigarettes, uncomplicated Other acquired Scoliosis, Chronic Active KRISTEN Not Av ailable deformities (1 unspecified ROBERTO SOTO (92386) source.) Past or Other Problems Problem Normalized Date of Normalized Normalized Provider Fac ility Classification Problem(s) Problem Problem Problem Sta tus Onset/Resoluti Duration on External cause Fall on same no information no information GRETC HEN Not Available codes: Fall (1 level from ROBERTO SOTO (46982) source.) slipping, tripping and stumbling with subsequent striking against other object, initial encounter Unclassified Laceration of no information Completed [facility] (1 source.) left [facility]/[address] ([address]) Procedures The data below is from unstructured sourcesNo known history of procedures. No Known procedures No Known procedures No Known procedures No Known procedures No Known procedures No Known procedures No Known procedures No Known procedures No Known procedures No Known procedures No Known procedures No Known procedures No Known procedures No Known procedures No Known procedures No Known procedures No Known procedures No Known procedures No Known procedures No Known proceduresNo procedure information available.No procedure information available.No procedure information available.No procedure information available. No Known procedures No Known procedures No Known procedures No Known procedures No Known procedures No Known procedures No Known procedures No Known procedures No Known procedures No Known procedures No Known procedures No Known procedures No Known procedures No Known procedures No Known procedures No Known procedures No Known procedures No Known procedures No Known procedures No Known procedures No Known procedures No Known proceduresNo procedure information available.No procedure information available. Immunizations Normalized Immunization Date Notes Care Provider Facili ty Immunization tetanus toxoid, 01-07-2020 no information [facility] Via reduced diphtheria [address] [facility] toxoid, and (73709) acellular pertussis vaccine, adsorbed vaccine no information [facility] Via [facility] Translations: [ [address] [place] ([address]) vaccine] Results Test Name Value Interpretation Reference Range Date Time Fa cility (Normalized) (Normalized) (Medline Reference) venous blood hemoglobin measurement (mass/volume) on 2018-08-17 Hemoglobin mass 13.7 g/dL (no code) 12.1 - 17.2 g/dL Via [facility] (Bld) [facility] ([address]) serum or plasma urea nitrogen/creatin ine mass ratio on 2018-08-17 Urea 19 mg/mg (no code) 6 - 22 mg/mg Via [facility] nitrogen/Creatin Hospital ine mass ratio [place] ([address]) serum or plasma urea nitrogen measurement (mass/volume) on 2018-08-17 Urea nitrogen 16 mg/dL (no code) 7 - 20 mg/dL Via [facility] (62364) serum or plasma total bilirubin measurement (mass/volume) on 2018-08-17 Bilirubin mass 1.4 mg/dL (H) 0.1 - 1.2 mg/dL Via [facility] (49507) serum or plasma sodium measurement (moles/volume) on 2018-08-17 Sodium molar 141 mmol/L (no code) 135 - 145 mmol/L Via [facility] (01717) serum or plasma salicylates measurement (mass/volume) on 2018-08-17 Salicylates mass no information (L) Via [facility] (96885) serum or plasma protein measurement (mass/volume) on 2018-08-17 Protein mass 6.9 g/dL (no code) 6.4 - 8.3 g/dL Via [facility] (15392) serum or plasma potassium measurement (moles/volume) on 2018-08-17 Potassium molar 3.6 mmol/L (no code) 3.7 - 5.2 mmol/L Via [facility] (83263) serum or plasma glucose measurement (mass/volume) on 2018-08-17 Glucose mass 91 mg/dL (no code) 60 - 125 mg/dL Via [facility] (72878) serum or plasma creatinine measurement with calculation of estimated glomerular filtration rate on 2018-08-17 GFR/1.73 sq M no information (no code) Via [facility] non-blacks [facility] vol rate/area () (S/P/Bld) serum or plasma creatinine measurement (mass/volume) on 2018-08-17 Creatinine mass 0.84 mg/dL (no code) Via [facility] () serum or plasma chloride measurement (moles/volume) on 2018-08-17 Chloride molar 105 mmol/L (no code) 95 - 106 mmol/L Via [facility] (63821) serum or plasma calcium measurement (mass/volume) on 2018-08-17 Calcium mass 9.1 mg/dL (no code) 8.5 - 10.2 mg/dL Via [facility] () serum or plasma aspartate aminotransferase measurement (enzymatic activity/volume) on 2018-08-17 AST enzyme 14 U/L (no code) 10 - 34 U/L Via [facility] () serum or plasma anion gap determination (moles/volume) on 2018-08-17 Anion gap 3 13 mmol/L (no code) 3 - 11 mmol/L Via [facility] () serum or plasma alkaline phosphatase measurement (enzymatic activity/volume) on 2018-08-17 ALP enzyme 49 U/L (no code) 44 - 147 U/L Via [facility] () serum or plasma albumin measurement (mass/volume) on 2018-08-17 Albumin mass 4.3 g/dL (no code) 3.4 - 5.4 g/dL Via [facility] (51002) serum or plasma alanine aminotransferase measurement (enzymatic activity/volume) on 2018-08-17 ALT enzyme 11 U/L (no code) 4 - 40 U/L Via [facility] () serum or plasma acetaminophen measurement (mass/volume) on 2018-08-17 Acetaminophen no information (L) Via [facility] (23383) carbon dioxide on 2018-08-17 CO2 molar conc 23 mmol/L (no code) 23 - 29 mmol/L Via [facility] () capillary blood glucose measurement by glucometer (mass/volume) on 2018-08-17 Glucose mass 98 mg/dL (no code) 60 - 125 mg/dL Via [facility] () calcium measurement corrected for albumin on 2018-08-17 Calcium mass 8.9 mg/dL (no code) 8.5 - 10.2 mg/dL Via [facility] () blood neutrophils automated count (number/volume) on 2018-08-17 Neutrophils Auto 5.7 10*3/uL (no code) 1.7 - 7 10*3/uL Via Kelly #/vol (Bld) [facility] (59278) blood monocytes/100 leukocytes on 2018-08-17 Monocytes/100 11 % (no code) 2 - 8 % Via Kelly WBC Auto (Bld) [facility] (87843) blood monocytes automated count (number/volume) on 2018-08-17 Monocytes Auto 1.0 10*3/uL (no code) 0.3 - 0.9 Via Kelly #/vol (Bld) 10*3/uL [facility] (23612) blood lymphocytes automated count (number/volume) on 2018-08-17 Lymphocytes Auto 2.3 10*3/uL (no code) 0.9 - 2.9 Via [facility] ti #/vol (Bld) 10*3/uL [facility] (45071) blood leukocytes automated count (number/volume) on 2018-08-17 WBC Auto #/vol 9.1 10*3/uL (no code) 3.5 - 10.5 Via Kelly (Bld) 10*3/uL [facility] (20641) blood hematocrit (volume fraction) on 2018-08-17 Hematocrit Auto 39 % (L) 36.1 - 50.3 % Via [facility] Volume [facility]raction [facility] (Bld) [place] ([address]) blood erythrocytes automated count (number/volume) on 2018-08-17 RBC Auto #/vol 4.29 10*6/uL (L) 4.2 - 6.1 Via Enrique i (Bld) 10*6/uL [facility] (99344) automated erythrocyte mean corpuscular volume on 2018-08-17 MCV Auto Entitic 92 fL (no code) 80 - 100 fL Via Chri sti volume (RBC) [facility] (27437) automated erythrocyte mean corpuscular hemoglobin concentration measurement (mass/volume) on 2018-08-17 MCHC Auto mass 35 g/dL (no code) 32 - 36 g/dL Via Raymundo ti conc (RBC) [facility] (86035) automated erythrocyte mean corpuscular hemoglobin (mass per erythrocyte) on 2018-08-17 MCH Auto Entitic 32 pg (no code) 27 - 31 pg Via Raymundo ti mass (RBC) [facility] (87791) automated erythrocyte distribution width ratio on 2018-08-17 Erythrocyte 13.0 % (no code) 11.6 - 14.6 % Via [facility] distribution Hospital width Auto Ratio [place] (RBC) (13566) automated eosinophil count on 2018-08-17 Eosinophils Auto 0.1 10*3/uL (no code) 0.05 - 0.5 Via Raymundo ti #/vol (Bld) 10*3/uL [facility] (33176) automated blood platelet mean volume measurement on 2018-08-17 Platelet mean 9.9 fL (no code) 7.2 - 11.7 fL Via Raymundo ti volume Auto Hospital Entitic volume [place] (Bld) (64055) automated blood platelet count (count/volume) on 2018-08-17 Platelets Auto 266 10*3/uL (no code) 150 - 450 Via Kelly #/vol (Bld) 10*3/uL [facility] (39870) automated blood neutrophils/100 leukocytes on 2018-08-17 Neutrophils/100 63 % (no code) 40 - 60 % Via Enrique i WBC Auto (Bld) [facility] (91340) automated blood lymphocytes/100 leukocytes on 2018-08-17 Lymphocytes/100 25 % (no code) 20 - 40 % Via Enrique i WBC Auto (Bld) [facility] (08818) automated blood eosinophils/100 leukocytes on 2018-08-17 Eosinophils/100 1 % (no code) 1 - 4 % Via Enrique i WBC Auto (Bld) [facility] (41852) automated blood basophils/100 leukocytes on 2018-08-17 Basophils/100 1 % (no code) 0.5 - 1 % Via Kelly WBC Auto (Bld) [facility] (21035) automated blood basophil count (count/volume) on 2018-08-17 Basophils Auto 0.1 10*3/uL (no code) 0 - 0.3 10*3/uL Via risti #/vol (Bld) [facility] (10414) Vital Signs Vital Sign Value Interpretation Reference Date Time Care Prov ider Facility (Normalized) (Normalized) Range Body height 175.26 cm (no code) cm 11-19-2013 ESTELA ROSALES [facility] 16:52-[address] [place] [address] ([id number]) Body 98.4 [degF] (no code) 97.8 - 99.0 11-19-2013 ESTELA CHAPA [facility] temperature [degF] 16:52-[address] [place] [address] ([id number]) Body weight 60.78 kg (no code) kg 11-19-2013 ESTELA ROSALES [facility] 16:52-[address] [place] [address] ([id number]) Interventions No Information Plan of Treatment Normalized Care Care Detail Care Activity Date Care Provider F acility Activity Patient Education Laceration Repair no information [facility] With Christiano (DC) [address] [place] [address] ([id number]) Patient referral no information no information [facility] [address] [place] [address] ([id number]) Goals Patient Goal Desired Goal no information no information Social History Normalized Code Original Code Date Value no information no information 12-07-2015 Regular Use no information no information 11-15-2015 Y - THC no information no information 08-17-2018 No no information no information 01-07-2020 Denies no information no information 01-01-2019 Cigarettes Sex Assigned At Sex Assigned At no information M estela Functional Status The data below is from unstructured sourcesNo functional status results.No functional status results.No functional status results.No functional status results.No functional status results.No functional status information available.No functional status information available.No functional status information available.No functional status information available.No Functional Status information availableNo Functional Status information availabl e Mental Status The data below is from unstructured sourcesNo Mental Status Information Available Encounters Encounter Normalized Encounter Encounter Diagnosis Care Provi louis Organization Date Type 11-18-2019 [facility] Low back pain ESTELA ROSALES (no [facility] phone) [facility] (no phone) 11-18-2019 - 11-18-2019 01-07-2020 Emergency department no information (no phone) As cension [facility] (no phone) 01-07-2020 01-01-2019 Emergency department no information KRISTEN THORPE IN Work no organization name - patient visit (no phone ) 01-01-2019 08-17-2018 Emergency department no information ALICIA CLAUDIO INS no organization name - patient visit Work Phone: (no phone) 08-17-2018 11-25-2019 [facility] Encounter for ESTELA ROSALES [facility] immunization phone) [facility] (no 11-25-2019 phone) - 11-25-2019 08-17-2018 Patient encounter no information no name (no phone) no organization name (no phone) 10-26-2017 Patient encounter no information no name (no phone) no organization name (no phone) 01-01-2019 Patient encounter no information no name (no phone) no organization name procedure (no phone) 12-02-2019 Telephone encounter no information ESTELA ROSALES [facility] - phone) (no phone) 12-02-2019 - 12-02-2019 Medical Equipment The data below is from unstructured sourcesNo Medical Equipment Information available Payers No Information Evaluation note Note Type Note Facility Evaluation No Assessments Information Available A scension note Via [facility] (72111) History general Narrative - Reported Note Type Note Facility History general Narrative - Reported Type Medical scolosis History [facility] (85953) History general Narrative - Reported Note Type Note Facility History general Narrative - Reported Type Medical scolosis History Surgical No know Surgical history History [facility] (67806) Summary Purpose eClinicalWorks SubmissioneClinicalWorks SubmissioneClinicalWorks SubmissioneClinicalWorks SubmissioneClinicalWorks SubmissioneClinicalWorks SubmissioneClinicalWorks SubmissioneClinicalWorks SubmissioneClinicalWorks SubmissioneClinicalWorks Submission Advance Directives Directive Response Recor ded Date/Time Advance Directives No 7:17pm Resuscitation Status Full Code 05/18/16 7:17pm Directive Response Recor ded Date/Time Advance Directives No 9:54pm Resuscitation Status Full Code 11/14/15 9:54pm Directive Response Recor ded Date/Time Advance Directives No 7:33pm Resuscitation Status Full Code 08/17/18 7:33pm Directive Response Recor ded Date/Time Advance Directives No 7:42pm Resuscitation Status Full Code 01/01/19 7:42pm Advance Directive Response Recorded Date/Time Advance Directives No [facility] 2018 7:42pm Discharge Instructions No hospital discharge instructions.No hospital discharge instructions.No hospital discharge instructions.No hospital discharge instruction information available.No hospital discharge instruction information available. Chief Complaint and Reason for Visit Chief Complaint Substance Abuse Reason for Visit [id number] Alcohol abuse Chief Complaint Laceration Reason for Visit Laceration of face with delay in treatment Chief Complaint Upper Extremity Reason for Visit [id number] Additional Source Comments This clinical document has been generated using streamOnce software that has been certified by the Office of the National Coordinator for Health Information Technology (ONC 15.99.04.3023.Diam.31.00.0.270246) and the National Committee for Fixed Income Portfolio Manager (NCQA, as an eMeasure certified technology). FOR RECORDS PERTAINING TO PATIENTS WHO ARE OR HAVE BEEN ENROLLED IN A CHEMICAL D EPENDENCY/SUBSTANCE ABUSE PROGRAM, SOME INFORMATION MAY BE OMITTED. This clinica l summary was aggregated from multiple sources. Caution should be exercised in using it in the provision of clinical care. This summary normalizes information from multiple sources, and as a consequence, information in this document may ma terially change the coding, format and clinical context of patient data. In christine tion, data may be omitted in some cases. CLINICAL DECISIONS SHOULD BE BASED ON T HE PRIMARY CLINICAL RECORDS. [facility]. provides no warranty or guara ntee of the accuracy or completeness of information in this document.The followi ng information is based on time limited clinical information UNRECOGNIZED CONTENT PROVIDED BELOW FOR UNRECOGNIZED SECTION MEDICAL (GENERAL) HISTORY Type Description Date Medical History scolosis UNRECOGNIZED CONTENT PROVIDED BELOW FOR UNRECOGNIZED SECTION REASON FOR VISIT [id number]
--- OUTSIDE RECORDS SUMMARY | 2020-01-07 19:48 | XMS REPORT ---
Author Author Jacob ROSALES Organization [facility] Address [address] [place] [address] Care Team Providers Care Resident Care Aid Name Role Phone ESTELA ROSALES Unavailable PROBLEMS Type Condition ICD9-CM Code OOQ10-PW Code Onset Dates Condition S tatus SNOMED Code Problem Other chronic pain G89.29 Active 8 [id number] ALLERGIES No Information ENCOUNTERS Encounter Location Date Diagnosis [facility] [address] [id number] [address] [place] [address] Oct, Low back pain M54.5 and Othe r chronic pain G89.29 [facility] [address] [id number] [address] [place] [address] Sep, [facility] [address] [id number] [address] [place] [address] Aug, [facility] [address] [id number] [address] [place] [address] Jul, [facility] [address] [id number] [address] [place] [address] Jul, [facility] [address] [id number] [address] [place] [address] Jul, [facility] [address] [id number] [address] [place] [address] Jun, [facility] [address] [id number] [address] [place] [address] Jun, [facility] [address] [id number] [address] [place] [address] May, [facility] [address] [facility] [id number] [address] [place] [address] Apr, [facility] [address] [id number] [address] [place] [address], [place] [address] Apr, [facility] [address] [id number] [address] [place] [address], [place] [address] February, [facility] [address] [id number] [address] [place] [address], [place] [address] February, [facility] [address] [id number] [address] [place] [address], [place] [address] Jan, [facility] [address] [id number] [address] [place] [address], [place] [address] Nov, [facility] [address] [id number] [address] [place] [address], [place] [address] Oct, [facility] [address] [id number] [address] [place] [address], [place] [address] Oct, [facility] [address] [id number] [address] [place] [address], [place] [address] Sep, [facility] [address] [id number] [address] [place] [address], [place] [address] Aug, Low back pain M54.5 and Othe r chronic pain G89.29 [facility] [address] [id number] [address] [place] [address], [place] [address] Jul, [facility] [address] [id number] [address] [place] [address], [place] [address] Jul, [facility] [address] [id number] [address] [place] [address], [place] [address] Jul, [facility] [address] [id number] [address] [place] [address], [place] [address] May, [facility] [address] [id number] [address] [place] [address], [place] [address] May, [facility] [address] [id number] [address] [place] [address], [place] [address] Apr, [facility] [address] [id number] [address] [place] [address] Mar, [facility] [address] [id number] [address] [place] [address] February, Low back pain M54.5 [facility] [address] [id number] [address] [place] [address] February, Low back pain M54.5 [facility] [address] [id number] [address] [place] [address] Dec, Low back pain M54.5 and Ami roesophageal reflux disease with esophagitis K21.0 [facility] [address] [id number] [address] [place] [address] Dec, [facility] [address] [id number] [address] [place] [address] Oct, [facility] [address] [id number] [address] [place] [address] Sep, [facility] [address] [id number] [address] [place] [address] Sep, [facility] [address] [id number] [address] [place] [address] Aug, Back pain 724.5 [facility] [address] [id number] [address] [place] [address] Jul, Back pain 724.5 [facility] [address] [id number] [address] [place] [address] Jun, Back pain 724.5 [facility] [address] [id number] [address] [place] [address] May, Back pain 724.5 [facility] [address] [id number] [address] [place] [address] Apr, [facility] [address] [id number] [address] [place] [address] Mar, [facility] [address] [id number] [address] [place] [address], [place] [address] 14 Jan, 2015 [facility] [address] [id number] [address] [place] [address], [place] [address] Jan, [facility] [address] [id number] [address] [place] [address], [place] [address] Dec, [facility] [address] [id number] [address] [place] [address], [place] [address] Dec, [facility] [address] [id number] [address] [place] [address], [place] [address] Dec, [facility] [address] [id number] [address] [place] [address], [place] [address] Dec, [facility] [address] [id number] [address] [place] [address], [place] [address] Nov, [facility] [address] [id number] [address] [place] [address], [place] [address] Nov, [facility] [address] [id number] [address] [place] [address], [place] [address] Oct, [facility] [address] [id number] [address] [place] [address], [place] [address] Oct, [facility] [address] [id number] [address] [place] [address], [place] [address] Sep, [facility] [address] [id number] [address] [place] [address] Sep, [facility] [address] [id number] [address] [place] [address], [place] [address] Jul, [facility] [address] [id number] [address] [place] [address], [place] [address] Jul, [facility] [address] [id number] [address] [place] [address], [place] [address] Jul, [facility] [address] [id number] [facility] [place] [address] 22 Jun, 2014 [facility] [address] [id number] [address] [place] [address], [place] [address] 22 Jun, 2014 [facility] [address] [id number] [address] [place] [address], [place] [address] Jun, [facility] [address] [id number] [address] [place] [address], [place] [address] Jun, [facility] [address] [id number] [address] [place] [address], [place] [address] May, [facility] [address] [id number] [address] [place] [address], [place] [address] May, [facility] [address] [id number] [address] [place] [address], [place] [address] May, [facility] [address] [id number] [address] [place] [address], [place] [address] May, [facility] [address] [id number] [address] [place] [address], [place] [address] Apr, [facility] [address] [id number] [address] [place] [address], [place] [address] Apr, [facility] [address] [id number] [address] [place] [address], [place] [address] Mar, [facility] [address] [id number] [address] [place] [address], [place] [address] Mar, [facility] [address] [id number] [address] [place] [address], [place] [address] Jan, [facility] [address] [id number] [address] [place] [address], [place] [address] Jan, [facility] [address] [id number] [address] [place] [address], [place] [address] Dec, [facility] [address] [id number] [address] [place] [address], [place] [address] Dec, [facility] [address] [id number] [address] [place] [address], [place] [address] Nov, [facility] [address] [id number] [address] [place] [address], [place] [address] Nov, [facility] [address] [id number] [address] [place] [address], [place] [address] Sep, [facility] [address] [id number] [address] [place] [address], [place] [address] Sep, [facility] [address] [id number] [address] [place] [address], [place] [address] Sep, [facility] [address] [id number] [address] [place] [address], [place] [address] Sep, [facility] [address] [id number] [address] [place] [address], [place] [address] Aug, [facility] [address] [id number] [address] [place] [address] Aug, [facility] [address] [id number] [address] [place] [address], [place] [address] May, [facility] [address] [id number] [address] [place] [address] Apr, [facility] [address] [id number] [address] [place] [address] Mar, [facility] [address] [id number] [address] [place] [address] February, [facility] [address] [id number] [address] [place] [address], [place] [address] Jan, [facility] [address] [id number] [address] [place] [address] Jan, [facility] [address] [id number] [address] [place] [address] Jan, [facility] [address] [id number] [address] [place] [address] 15 Dec, 2012 [facility] [address] [id number] [address] [place] [address] 13 Dec, 2012 [facility] [address] [id number] [address] [place] [address] 13 Dec, 2012 [facility] [address] [id number] [address] [place] [address] 30 Oct, 2012 [facility] [address] [id number] [address] [place] [address] Sep, [facility] [address] [id number] [address] [place] [address] Sep, [facility] [address] [id number] [address] [place] [address] Aug, [facility] [address] [id number] [address] [place] [address] Aug, [facility] [address] [id number] [address] [place] [address] Aug, [facility] [address] [id number] [address] [place] [address] Aug, [facility] [address] [id number] [address] [place] [address] Aug, [facility] [address] [id number] [address] [place] [address] Jun, [facility] [address] [id number] [address] [place] [address] May, [facility] [address] [id number] [address] [place] [address] Mar, [facility] [address] [id number] [address] [place] [address] Sep, IMMUNIZATIONS No Known Immunizations SOCIAL HISTORY Never Assessed REASON FOR VISIT PLAN OF CARE VITAL SIGNS Height 69 in 2014-08-05 Weight 136.4 lbs 2014-08-05 Temperature 96.9 degrees Fahrenheit 2014-08-05 Heart Rate 64 bpm 2014-08-05 Respiratory Rate 18 2014-08-05 Blood pressure systolic 118 mmHg 2014-08-05 Blood pressure diastolic 62 mmHg 2014-08-05 MEDICATIONS No Known Medications RESULTS No Results PROCEDURES No Known procedures INSTRUCTIONS MEDICATIONS ADMINISTERED No Known Medications MEDICAL (GENERAL) HISTORY Type Description Date Medical History scolosis
--- OUTSIDE RECORDS SUMMARY | 2020-01-07 19:48 | XMS REPORT ---
Author Author Jacob ROSALES Organization [facility] Address [address] [place] [address] Care Team Providers Care Test Tech Name Role Phone ESTELA ROSALES Unavailable PROBLEMS Type Condition ICD9-CM Code [id number] Code Onset Dates Condition S tatus SNOMED Code Problem Other chronic pain G89.29 Active 8 5751968 Problem Mood disorder F39 Active 666993 05 ALLERGIES No Information ENCOUNTERS Encounter Location Date Diagnosis [facility] [address] [address] 18 Nov, 2019 OUTREACH [facility] [address] [facility] [place] [address] [place] [address] 11 Nov, 2019 Encounter for immunization Z 23 [facility] [address] [place], [place] [id number] Nov, Low back pain M54.5 ; Other chronic pain G89.29 and Mood disorder F39 [facility] [address] [address] Oct, Low back pain M54.5 and Other chronic pa in G89.29 [facility] [address] [address] Sep, [facility] [address] [address] Aug, [facility] [address] [address] Jul, [facility] [address] [address] Jul, [facility] [address] [address] Jul, [facility] [address] [address] Jun, [facility] [id number] [place] [address] Jun, [facility] [id number] [place] [address] May, [facility] [id number] [place] [address] Apr, [facility] [id number] [place] [address] Apr, [facility] [id number] [place] [address] February, [facility] [id number] [place] [address] February, [facility] [id number] [place] [address] Jan, [facility] [id number] [place] [address] Nov, [facility] [id number] [place] [address] Oct, [facility] [id number] [place] [address] Oct, [facility] [id number] [place] [address] Sep, [facility] [id number] [place] [address] Aug, Low back pain M54.5 and Other chronic pa in G89.29 [facility] [id number] [place] [address] Jul, [facility] [id number] [place] [address] Jul, [facility] [id number] [place] [address] Jul, [facility] [id number] [place] [address] May, [facility] [id number] [place] [address] May, [facility] [id number] [place] [address] Apr, [facility] [id number] [place] [address] Mar, [facility] [address] [address] February, Low back pain M54.5 [facility] [address] [address] February, Low back pain M54.5 [facility] [id number] [place] [address] Dec, Low back pain M54.5 and Gastroesophageal reflux disease with esophagitis K21.0 [facility] [id number] [place] [address] Dec, [facility] [id number] [place] [address] Oct, [facility] [id number] [place] [address] Sep, [facility] [id number] [place] [address] Sep, [facility] [address] [address] Aug, Back pain 724.5 [facility] [id number] [place] [address] 07 Jul, 2015 Back pain 724.5 [facility] [address] [address] 09 Jun, 2015 Back pain 724.5 [facility] [id number] [place] [address] May, Back pain 724.5 [facility] [address] [place] [address] Apr, [facility] [id number] [place] [address] Mar, [facility] [id number] [place] [address] Jan, [facility] [id number] [place] [address] Jan, [facility] [id number] [place] [address] Dec, [facility] [id number] [place] [address] Dec, [facility] [id number] [place] [address] Dec, [facility] [id number] [place] [address] Dec, [facility] [id number] [place] [address] Nov, [facility] [id number] [place] [address] Nov, [facility] [id number] [place] [address] Oct, [facility] [id number] [place] [address] Oct, [facility] [id number] [place] [address] Sep, [facility] [id number] [place] [address] Sep, [facility] [id number] [place] [address] Jul, [facility] [id number] [place] [address] Jul, [facility] [id number] [place] [address] Jul, [facility] [address] [facility] [place] [id number] [place] [address] Jun, [facility] [id number] [place] [address] Jun, [facility] [id number] [place] [address] Jun, [facility] [id number] [place] [address] Jun, [facility] [id number] [place] [address] May, [facility] [id number] [place] [address] May, [facility] [id number] [place] [address] May, [facility] [id number] [place] [address] May, [facility] [id number] [place] [address] Apr, [facility] [id number] [place] [address] Apr, [facility] [id number] [place] [address] Mar, [facility] [id number] [place] [address] Mar, [facility] [id number] [place] [address] Jan, [facility] [id number] [place] [address] Jan, [facility] [id number] [place] [address] Dec, [facility] [id number] [place] [address] Dec, [facility] [id number] [place] [address] Nov, [facility] [id number] [place] [address] Nov, [facility] [id number] [place] [address] Sep, [facility] [id number] [place] [address] Sep, [facility] [id number] [place] [address] Sep, [facility] [id number] [place] [address] Sep, [facility] [id number] [place] [address] Aug, [facility] [id number] [place] [address] Aug, [facility] [id number] [place] [address] May, [facility] [id number] [place] [address] Apr, [facility] [id number] [place] [address] Mar, [facility] [id number] [place] [address] February, [facility] [id number] [place] [address] Jan, [facility] [id number] [place] [address] Jan, [facility] [id number] [place] [address] Jan, [facility] [id number] [place] [address] Dec, [facility] [id number] [place] [address] Dec, [facility] [id number] [place] [address] Dec, [facility] [id number] [place] [address] Oct, [facility] [id number] [place] [address] Sep, [facility] [id number] [place] [address] Sep, [facility] [id number] [place] [address] Aug, [facility] [id number] [place] [address] Aug, [facility] [id number] [place] [address] Aug, [facility] [id number] [place] [address] Aug, [facility] [id number] [place] [address] Aug, [facility] [id number] [place] [address] Jun, [facility] [id number] [place] [address] May, [facility] [id number] [place] [address] Mar, [facility] [id number] [place] [address] Sep, IMMUNIZATIONS No Known Immunizations SOCIAL HISTORY Never Assessed REASON FOR VISIT PLAN OF CARE VITAL SIGNS MEDICATIONS Unknown Medications RESULTS No Results PROCEDURES No Known procedures INSTRUCTIONS MEDICATIONS ADMINISTERED No Known Medications MEDICAL (GENERAL) HISTORY Type Description Date Medical History scolosis Surgical History No know Surgical history
--- OUTSIDE RECORDS SUMMARY | 2020-01-07 19:48 | XMS REPORT ---
Author Author Jacob ROSALES Organization [facility] [place] Address [address] [place] [address] Care Team Providers Care Performance Architect Name Role Phone ESTELA ROSALES Unavailable PROBLEMS Type Condition ICD9-CM Code POD99-ZV Code Onset Dates Condition S tatus SNOMED Code Problem Other chronic pain G89.29 Active 8 [id number] ALLERGIES No Information ENCOUNTERS Encounter Location Date Diagnosis [facility] [place] [address] [address] Oct, Low back pain M54.5 and Other chronic pa in G89.29 [facility] [place] [address] [address] Sep, [facility] [place] [address] [address] Aug, [facility] [place] [address] [address] Jul, [facility] [place] [address] [address] Jul, [facility] [place] [address] [address] Jul, [facility] [place] [address] [address] Jun, [facility] [place] [address] [address] Jun, [facility] [place] [address] [address] May, [facility] [place] [address] [address] Apr, [facility] [place] [address] [address] Apr, [facility] [id number] [place] [address] February, [facility] [id number] [place] [address] February, [facility] [id number] [place] [address] Jan, [facility] [id number] [place] [address] Nov, [facility] [id number] [place] [address] Oct, [facility] [id number] [place] [address] Oct, [facility] [id number] [place] [address] Sep, [facility] [id number] [place] [address] Aug, Low back pain M54.5 and Other chronic pa in G89.29 [facility] [id number] [place] [address] Jul, [facility] [id number] [place] [address] Jul, [facility] [id number] [place] [address] Jul, [facility] [id number] [place] [address] May, [facility] [id number] [place] [address] May, [facility] [id number] [place] [address] Apr, [facility] [id number] [place] [address] Mar, [facility] [id number] [place] [address] February, Low back pain M54.5 [facility] [place] [id number] [place] [address] February, Low back pain M54.5 [facility] [place] [address] [address] Dec, Low back pain M54.5 and Gastroesophageal reflux disease with esophagitis K21.0 [facility] [place] [address] [address] Dec, [facility] [place] [address] [address] Oct, [facility] [place] [address] [address] Sep, [facility] [place] [address] [address] Sep, [facility] [place] [address] [address] Aug, Back pain 724.5 [facility] [place] [address] [address] Jul, Back pain 724.5 [facility] [place] [address] [address] Jun, Back pain 724.5 [facility] [place] [address] [address] May, Back pain 724.5 [facility] [place] [address] [address] Apr, [facility] [place] [address] [address] Mar, [facility] [place] [address] [address] 14 Jan, 2015 [facility] [place] [address] [address] 13 Jan, 2015 [facility] [place] [address] [address] Dec, 2014 [facility] [address] [id number] [place] [address] Dec, [facility] [address] [id number] [place] [address] Dec, [facility] [address] [id number] [place] [address] Dec, [facility] [address] [id number] [place] [address] Nov, [facility] [address] [id number] [place] [address] Nov, [facility] [address] [id number] [place] [address] Oct, [facility] [address] [id number] [place] [address] Oct, [facility] [address] [id number] [place] [address] Sep, [facility] [address] [id number] [place] [address] Sep, [facility] [address] [id number] [place] [address] Jul, [facility] [address] [id number] [place] [address] Jul, [facility] [address] [id number] [place] [address] Jul, [facility] [address] [id number] [place] [address] Jun, [facility] [address] [id number] [place] [address] Jun, [facility] [address] [id number] [place] [address] Jun, [facility] [address] [id number] [place] [address] Jun, [facility] [address] [id number] [place] [address] May, [facility] [address] [id number] [place] [address] May, [facility] [address] [id number] [place] [address] May, [facility] [address] [id number] [place] [address] May, [facility] [address] [id number] [place] [address] Apr, [facility] [address] [id number] [place] [address] Apr, [facility] [address] [id number] [place] [address] Mar, [facility] [address] [id number] [place] [address] Mar, [facility] [address] [id number] [place] [address] Jan, [facility] [address] [id number] [place] [address] Jan, [facility] [address] [id number] [place] [address] Dec, [facility] [address] [id number] [place] [address] Dec, [facility] [address] [id number] [place] [address] Nov, [facility] [address] [id number] [place] [address] Nov, [facility] [address] [id number] [place] [address] Sep, [facility] [address] [id number] [place] [address] Sep, [facility] [address] [id number] [place] [address] Sep, [facility] [address] [id number] [place] [address] Sep, [facility] [address] [id number] [place] [address] Aug, [facility] [address] [id number] [place] [address] Aug, [facility] [address] [id number] [place] [address] May, [facility] [address] [id number] [place] [address] Apr, [facility] [address] [id number] [place] [address] Mar, [facility] [address] [id number] [place] [address] February, [facility] [address] [id number] [place] [address] Jan, [facility] [address] [id number] [place] [address] Jan, [facility] [address] [id number] [place] [address] Jan, [facility] [address] [id number] [place] [address] Dec, [facility] [address] [id number] [place] [address] Dec, [facility] [address] [id number] [place] [address] Dec, [facility] [address] [id number] [place] [address] Oct, [facility] [address] [id number] [place] [address] Sep, [facility] [address] [id number] [place] [address] Sep, [facility] [address] [id number] [place] [address] Aug, [facility] [place] [id number] [place] [address] Aug, [facility] [place] [id number] [place] [address] Aug, [facility] [place] [address] [address] Aug, [facility] [place] [address] [address] Aug, [facility] [place] [id number] [place] [address] Jun, [facility] [place] [id number] [place] [address] May, [facility] [place] [id number] [place] [address] Mar, [facility] [place] [id number] [place] [address] Sep, IMMUNIZATIONS No Known Immunizations SOCIAL HISTORY Never Assessed REASON FOR VISIT PLAN OF CARE VITAL SIGNS MEDICATIONS No Known Medications RESULTS No Results PROCEDURES No Known procedures INSTRUCTIONS MEDICATIONS ADMINISTERED No Known Medications MEDICAL (GENERAL) HISTORY Type Description Date Medical History scolosis
--- OUTSIDE RECORDS SUMMARY | 2020-01-07 19:48 | XMS REPORT ---
Author Author Jacob ROSALES Organization [facility] Address [address] [place] [address] Care Team Providers Care Nutritionist Public Health Name Role Phone ESTELA ROSALES Unavailable PROBLEMS Type Condition ICD9-CM Code [id number] Code Onset Dates Condition S tatus SNOMED Code Problem Other chronic pain G89.29 Active 8 [id number] ALLERGIES No Information ENCOUNTERS Encounter Location Date Diagnosis [facility] [address] [id number] [address] [place] [id number] Oct, Low back pain M54.5 and Othe r chronic pain G89.29 [facility] [address] [id number] [address] [place] [id number] Sep, [facility] [address] [id number] [address] [place] [address] Aug, [facility] [address] [id number] [address] [place] [address] Jul, [facility] [address] [id number] [address] [place] [address] Jul, [facility] [address] [id number] [address] [place] [address] Jul, [facility] [address] [id number] [address] [place] [address] Jun, [facility] [address] [id number] [address] [place] [address] Jun, [facility] [address] [id number] [address] [place] [address] May, [facility] [address] [facility] [id number] [address] [place] [phone] Apr, [facility] [address] [id number] [address] [place] [address], [place] [address] Apr, [facility] [address] [id number] [address] [place] [address], [place] [address] February, [facility] [address] [id number] [address] [place] [address], [place] [address] February, [facility] [address] [id number] [address] [place] [address], [place] [address] Jan, [facility] [address] [id number] [address] [place] [address], [place] [address] Nov, [facility] [address] [id number] [address] [place] [address], [place] [address] Oct, [facility] [address] [id number] [address] [place] [address], [place] [address] Oct, [facility] [address] [id number] [address] [place] [address], [place] [address] Sep, [facility] [address] [id number] [address] [place] [address], [place] [address] Aug, Low back pain M54.5 and Othe r chronic pain G89.29 [facility] [address] [id number] [address] [place] [address], [place] [address] Jul, [facility] [address] [id number] [address] [place] [address], [place] [address] Jul, [facility] [address] [id number] [address] [place] [address], [place] [address] Jul, [facility] [address] [id number] [address] [place] [address], [place] [address] May, [facility] [address] [id number] [address] [place] [address], [place] [address] May, [facility] [address] [id number] [address] [place] [address], [place] [address] Apr, [facility] [address] [id number] [address] [place] [address] Mar, [facility] [address] [id number] [address] [place] [address] February, Low back pain M54.5 [facility] [address] [id number] [address] [place] [address] February, Low back pain M54.5 [facility] [address] [id number] [address] [place] [address] Dec, Low back pain M54.5 and Ami roesophageal reflux disease with esophagitis K21.0 [facility] [address] [id number] [address] [place] [address] Dec, [facility] [address] [id number] [address] [place] [address] Oct, [facility] [address] [id number] [address] [place] [phone] Sep, [facility] [address] [id number] [address] [place] [address] Sep, [facility] [address] [id number] [address] [place] [address] Aug, Back pain 724.5 [facility] [address] [id number] [address] [place] [address] Jul, Back pain 724.5 [facility] [address] [id number] [address] [place] [address] Jun, Back pain 724.5 [facility] [address] [id number] [address] [place] [address] May, Back pain 724.5 [facility] [address] [id number] [address] [place] [phone] Apr, [facility] [address] [id number] [address] [place] [address] Mar, [facility] [address] [id number] [address] [place] [address], [place] [address] 14 Jan, 2015 [facility] [address] [id number] [address] [place] [address], [place] [address] Jan, [facility] [address] [id number] [address] [place] [address], [place] [address] Dec, [facility] [address] [id number] [address] [place] [address], [place] [address] Dec, [facility] [address] [id number] [address] [place] [address], [place] [address] Dec, [facility] [address] [id number] [address] [place] [address], [place] [address] Dec, [facility] [address] [id number] [address] [place] [address], [place] [address] Nov, [facility] [address] [id number] [address] [place] [address], [place] [address] Nov, [facility] [address] [id number] [address] [place] [address], [place] [address] Oct, [facility] [address] [id number] [address] [place] [address], [place] [address] Oct, [facility] [address] [id number] [address] [place] [address], [place] [address] Sep, [facility] [address] [id number] [address] [place] [address] Sep, [facility] [address] [id number] [address] [place] [address], [place] [address] Jul, [facility] [address] [id number] [address] [place] [address], [place] [address] Jul, [facility] [address] [id number] [address] [place] [address], [place] [address] Jul, [facility] [address] [id number] [facility] [place] [address] 22 Jun, 2014 [facility] [address] [id number] [address] [place] [address], [place] [address] 22 Jun, 2014 [facility] [address] [id number] [address] [place] [address], [place] [address] Jun, [facility] [address] [id number] [address] [place] [address], [place] [address] Jun, [facility] [address] [id number] [address] [place] [address], [place] [address] May, [facility] [address] [id number] [address] [place] [address], [place] [address] May, [facility] [address] [id number] [address] [place] [address], [place] [address] May, [facility] [address] [id number] [address] [place] [address], [place] [address] May, [facility] [address] [id number] [address] [place] [address], [place] [address] Apr, [facility] [address] [id number] [address] [place] [address], [place] [address] Apr, [facility] [address] [id number] [address] [place] [address], [place] [address] Mar, [facility] [address] [id number] [address] [place] [address], [place] [address] Mar, [facility] [address] [id number] [address] [place] [address], [place] [address] Jan, [facility] [address] [id number] [address] [place] [address], [place] [address] Jan, [facility] [address] [id number] [address] [place] [address], [place] [address] Dec, [facility] [address] [id number] [address] [place] [address], [place] [address] Dec, [facility] [address] [id number] [address] [place] [address], [place] [address] Nov, [facility] [address] [id number] [address] [place] [address], [place] [address] Nov, [facility] [address] [id number] [address] [place] [address], [place] [address] Sep, [facility] [address] [id number] [address] [place] [address], [place] [address] Sep, [facility] [address] [id number] [address] [place] [address], [place] [address] Sep, [facility] [address] [id number] [address] [place] [address], [place] [address] Sep, [facility] [address] [id number] [address] [place] [address], [place] [address] Aug, [facility] [address] [id number] [address] [place] [address] Aug, [facility] [address] [id number] [address] [place] [address], [place] [address] May, [facility] [address] [id number] [address] [place] [address] Apr, [facility] [address] [id number] [address] [place] [address] Mar, [facility] [address] [id number] [address] [place] [address] February, [facility] [address] [id number] [address] [place] [address], [place] [address] Jan, [facility] [address] [id number] [address] [place] [phone] Jan, [facility] [address] [id number] [address] [place] [phone] Jan, [facility] [address] [id number] [address] [place] [id number] 15 Dec, 2012 [facility] [address] [id number] [address] [place] [address] 13 Dec, 2012 [facility] [address] [id number] [address] [place] [address] 13 Dec, 2012 [facility] [address] [id number] [address] [place] [address] Oct, [facility] [address] [id number] [address] [place] [address] Sep, [facility] [address] [id number] [address] [place] [address] Sep, [facility] [address] [id number] [address] [place] [address] Aug, [facility] [address] [id number] [address] [place] [address] Aug, [facility] [address] [id number] [address] [place] [id number] Aug, [facility] [address] [id number] [address] [place] [address] Aug, [facility] [address] [facility] [id number] [address] [place] [id number] Aug, [facility] [address] [id number] [address] [place] [address] Jun, [facility] [address] [id number] [address] [place] [phone] May, [facility] [address] [id number] [address] [place] [address] Mar, [facility] [address] [id number] [address] [place] [phone] Sep, IMMUNIZATIONS No Known Immunizations SOCIAL HISTORY Never Assessed REASON FOR VISIT PLAN OF CARE VITAL SIGNS MEDICATIONS No Known Medications RESULTS No Results PROCEDURES No Known procedures INSTRUCTIONS MEDICATIONS ADMINISTERED No Known Medications MEDICAL (GENERAL) HISTORY Type Description Date Medical History scolosis
--- OUTSIDE RECORDS SUMMARY | 2020-01-07 19:48 | XMS REPORT ---
Author Author Jacob ROSALES Organization [facility] Address [address] [place] [address] Care Team Providers Care It Infrastructure Engineer Name Role Phone ESTELA ROSALES Unavailable PROBLEMS Type Condition ICD9-CM Code [id number] Code Onset Dates Condition S tatus SNOMED Code Problem Other chronic pain G89.29 Active 8 [id number] ALLERGIES No Information ENCOUNTERS Encounter Location Date Diagnosis [facility] [address] [id number] Oct, Low back pain M54.5 and Other chronic pa in G89.29 [facility] [address] [id number] Sep, [facility] [address] [address] Aug, [facility] [address] [address] Jul, [facility] [address] [address] Jul, [facility] [address] [address] Jul, [facility] [address] [address] Jun, [facility] [address] [address] Jun, [facility] [address] [address] May, [facility] [address] [address] Apr, [facility] [address] [address] Apr, [facility] [id number] [place] [address] February, [facility] [id number] [place] [address] February, [facility] [id number] [place] [address] Jan, [facility] [id number] [place] [address] Nov, [facility] [id number] [place] [address] Oct, [facility] [id number] [place] [address] Oct, [facility] [id number] [place] [address] Sep, [facility] [id number] [place] [address] Aug, Low back pain M54.5 and Other chronic pa in G89.29 [facility] [id number] [place] [address] Jul, [facility] [id number] [place] [address] Jul, [facility] [id number] [place] [address] Jul, [facility] [id number] [place] [address] May, [facility] [id number] [place] [address] May, [facility] [id number] [place] [address] Apr, [facility] [id number] [place] [address] Mar, [facility] [id number] [place] [address] February, Low back pain M54.5 [facility] [id number] [place] [address] February, Low back pain M54.5 [facility] [address] [address] Dec, Low back pain M54.5 and Gastroesophageal reflux disease with esophagitis K21.0 [facility] [address] [address] Dec, [facility] [address] [address] Oct, [facility] [address] [address] Sep, [facility] [address] [address] Sep, [facility] [address] [address] Aug, Back pain 724.5 [facility] [address] [address] Jul, Back pain 724.5 [facility] [address] [address] Jun, Back pain 724.5 [facility] [address] [address] May, Back pain 724.5 [facility] [address] [address] Apr, [facility] [address] [address] Mar, [facility] [address] [address] 14 Jan, 2015 [facility] [address] [address] 13 Jan, 2015 [facility] [address] [address] Dec, 2014 [facility] [id number] [place] [address] Dec, [facility] [id number] [place] [address] Dec, [facility] [id number] [place] [address] Dec, [facility] [id number] [place] [address] Nov, [facility] [id number] [place] [address] Nov, [facility] [id number] [place] [address] Oct, [facility] [id number] [place] [address] Oct, [facility] [id number] [place] [address] Sep, [facility] [id number] [place] [address] Sep, [facility] [id number] [place] [address] Jul, [facility] [id number] [place] [address] Jul, [facility] [id number] [place] [address] Jul, [facility] [id number] [place] [address] Jun, [facility] [id number] [place] [address] Jun, [facility] [id number] [place] [address] Jun, [facility] [id number] [place] [address] Jun, [facility] [id number] [place] [address] May, [facility] [id number] [place] [address] May, [facility] [id number] [place] [address] May, [facility] [id number] [place] [address] May, [facility] [id number] [place] [address] Apr, [facility] [id number] [place] [address] Apr, [facility] [id number] [place] [address] Mar, [facility] [id number] [place] [address] Mar, [facility] [id number] [place] [address] Jan, [facility] [id number] [place] [address] Jan, [facility] [id number] [place] [address] Dec, [facility] [id number] [place] [address] Dec, [facility] [id number] [place] [address] Nov, [facility] [id number] [place] [address] Nov, [facility] [id number] [place] [address] Sep, [facility] [id number] [place] [address] Sep, [facility] [id number] [place] [address] Sep, [facility] [id number] [place] [address] Sep, [facility] [id number] [place] [address] Aug, [facility] [id number] [place] [address] Aug, [facility] [id number] [place] [address] May, [facility] [id number] [place] [address] Apr, [facility] [id number] [place] [address] Mar, [facility] [id number] [place] [address] February, [facility] [id number] [place] [address] Jan, [facility] [id number] [place] [address] Jan, [facility] [id number] [place] [address] Jan, [facility] [id number] [place] [address] Dec, [facility] [id number] [place] [address] Dec, [facility] [id number] [place] [address] Dec, [facility] [id number] [place] [address] Oct, [facility] [id number] [place] [address] Sep, [facility] [id number] [place] [address] Sep, [facility] [id number] [place] [address] Aug, [facility] [id number] [place] [address] Aug, [facility] [id number] [place] [address] Aug, [facility] [address] [address] Aug, [facility] [address] [address] Aug, [facility] [id number] [place] [address] Jun, [facility] [id number] [place] [address] May, [facility] [id number] [place] [address] Mar, [facility] [id number] [place] [address] Sep, IMMUNIZATIONS No Known Immunizations SOCIAL HISTORY Never Assessed REASON FOR VISIT PLAN OF CARE VITAL SIGNS MEDICATIONS No Known Medications RESULTS No Results PROCEDURES No Known procedures INSTRUCTIONS MEDICATIONS ADMINISTERED No Known Medications MEDICAL (GENERAL) HISTORY Type Description Date Medical History scolosis
--- OUTSIDE RECORDS SUMMARY | 2020-01-07 19:48 | XMS REPORT ---
Author Author Jacob ROSALES Organization 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 [address] [address] 18 Nov, 2019 OUTREACH [facility] [address] [facility] [id number] [address] 11 Nov, 2019 Encounter for immunization Z 23 [facility] [address] [place], [place] [id number] 57 Nov, Low back pain M54.5 ; Other chronic pain G89.29 and Mood disorder F39 [facility] [address] [address] Oct, Low back pain M54.5 and Other chronic pa in G89.29 [facility] [address] [address] Sep, [facility] [address] [address] Aug, [facility] [address] [address] Jul, [facility] [address] [address] Jul, [facility] [address] [address] Jul, [facility] [address] [address] Jun, [facility] [address] [id number] [place] [address] Jun, [facility] [address] [id number] [place] [address] May, [facility] [id number] [place] [address] Apr, [facility] [id number] [place] [address] Apr, [facility] [id number] [place] [address] February, [facility] [id number] [place] [address] February, [facility] [id number] [place] [address] Jan, [facility] [id number] [place] [address] Nov, [facility] [id number] [place] [address] Oct, [facility] [id number] [place] [address] Oct, [facility] [id number] [place] [address] Sep, [facility] [id number] [place] [address] Aug, Low back pain M54.5 and Other chronic pa in G89.29 [facility] [id number] [place] [address] Jul, [facility] [id number] [place] [address] Jul, [facility] [id number] [place] [address] Jul, [facility] [id number] [place] [address] May, [facility] [id number] [place] [address] May, [facility] [id number] [place] [address] Apr, [facility] [id number] [place] [address] Mar, [facility] [address] [address] February, Low back pain M54.5 [facility] [address] [address] February, Low back pain M54.5 [facility] [id number] [place] [address] Dec, Low back pain M54.5 and Gastroesophageal reflux disease with esophagitis K21.0 [facility] [id number] [place] [address] Dec, [facility] [id number] [place] [address] Oct, [facility] [id number] [place] [address] Sep, [facility] [id number] [place] [address] Sep, [facility] [address] [address] Aug, Back pain 724.5 [facility] [address] [id number] [place] [address] 07 Jul, 2015 Back pain 724.5 [facility] [address] [address] 09 Jun, 2015 Back pain 724.5 [facility] [address] [id number] [place] [address] May, Back pain 724.5 [facility] [address] [place] [address] Apr, [facility] [address] [id number] [place] [address] Mar, [facility] [address] [id number] [place] [address] Jan, [facility] [address] [id number] [place] [address] Jan, [facility] [address] [id number] [place] [address] Dec, [facility] [address] [id number] [place] [address] Dec, [facility] [address] [id number] [place] [address] Dec, [facility] [address] [id number] [place] [address] Dec, [facility] [address] [id number] [place] [address] Nov, [facility] [address] [id number] [place] [address] Nov, [facility] [address] [id number] [place] [address] Oct, [facility] [address] [id number] [place] [address] Oct, [facility] [address] [id number] [place] [address] Sep, [facility] [address] [id number] [place] [address] Sep, [facility] [id number] [place] [address] Jul, [facility] [address] [id number] [place] [address] Jul, [facility] [address] [id number] [place] [address] Jul, [facility] [address] [facility] [id number] [place] [address] Jun, [facility] [address] [id number] [place] [address] Jun, [facility] [address] [id number] [place] [address] Jun, [facility] [address] [id number] [place] [address] Jun, [facility] [address] [id number] [place] [address] May, [facility] [address] [id number] [place] [address] May, [facility] [address] [id number] [place] [address] May, [facility] [address] [id number] [place] [address] May, [facility] [address] [id number] [place] [address] Apr, [facility] [address] [id number] [place] [address] Apr, [facility] [address] [id number] [place] [address] Mar, [facility] [address] [id number] [place] [address] Mar, [facility] [address] [id number] [place] [address] Jan, [facility] [address] [id number] [place] [address] Jan, [facility] [address] [id number] [place] [address] Dec, [facility] [address] [id number] [place] [address] Dec, [facility] [address] [id number] [place] [address] Nov, [facility] [address] [id number] [place] [address] Nov, [facility] [address] [id number] [place] [address] Sep, [facility] [address] [id number] [place] [address] Sep, [facility] [address] [id number] [place] [address] Sep, [facility] [address] [id number] [place] [address] Sep, [facility] [address] [id number] [place] [address] Aug, [facility] [address] [id number] [place] [address] Aug, [facility] [address] [id number] [place] [address] May, [facility] [address] [id number] [place] [address] Apr, [facility] [address] [id number] [place] [address] Mar, [facility] [address] [id number] [place] [address] February, [facility] [address] [id number] [place] [address] Jan, [facility] [address] [id number] [place] [address] Jan, [facility] [address] [id number] [place] [address] Jan, [facility] [address] [id number] [place] [address] Dec, [facility] [address] [id number] [place] [address] Dec, [facility] [address] [id number] [place] [address] Dec, [facility] [address] [id number] [place] [address] Oct, [facility] [address] [id number] [place] [address] Sep, [facility] [address] [id number] [place] [address] Sep, [facility] [id number] [place] [address] Aug, [facility] [address] [id number] [place] [address] Aug, [facility] [id number] [place] [address] Aug, [facility] [id number] [place] [address] Aug, [facility] [id number] [place] [address] Aug, [facility] [address] [id number] [place] [address] Jun, [facility] [address] [id number] [place] [address] May, [facility] [address] [id number] [place] [address] Mar, [facility] [address] [id number] [place] [address] Sep, IMMUNIZATIONS No Known Immunizations SOCIAL HISTORY Never Assessed REASON FOR VISIT PLAN OF CARE VITAL SIGNS MEDICATIONS Unknown Medications RESULTS No Results PROCEDURES No Known procedures INSTRUCTIONS MEDICATIONS ADMINISTERED No Known Medications MEDICAL (GENERAL) HISTORY Type Description Date Medical History scolosis Surgical History No know Surgical history
--- OUTSIDE RECORDS SUMMARY | 2020-01-07 19:48 | XMS REPORT ---
Author Author Jacob ROSALES Organization [facility] Address [address] [place] [address] Care Team Providers Care Learning And Development Manager Name Role Phone ESTELA ROSALES Unavailable PROBLEMS Type Condition ICD9-CM Code PUL34-UO Code Onset Dates Condition S tatus SNOMED Code Problem Other chronic pain G89.29 Active 8 [id number] ALLERGIES No Information ENCOUNTERS Encounter Location Date Diagnosis [facility] [address] [id number] [address] [place] [address] Oct, Low back pain M54.5 and Othe r chronic pain G89.29 [facility] [address] [id number] [address] [place] [address] Sep, [facility] [address] [id number] [address] [place] [address] Aug, [facility] [address] [id number] [address] [place] [address] Jul, [facility] [address] [id number] [address] [place] [address] Jul, [facility] [address] [id number] [address] [place] [address] Jul, [facility] [address] [id number] [address] [place] [address] Jun, [facility] [address] [id number] [address] [place] [address] Jun, [facility] [address] [id number] [address] [place] [address] May, [facility] [address] [facility] [id number] [address] [place] [address] Apr, [facility] [address] [id number] [address] [place] [address], [place] [address] Apr, [facility] [address] [id number] [address] [place] [address], [place] [address] February, [facility] [address] [id number] [address] [place] [address], [place] [address] February, [facility] [address] [id number] [address] [place] [address], [place] [address] Jan, [facility] [address] [id number] [address] [place] [address], [place] [address] Nov, [facility] [address] [id number] [address] [place] [address], [place] [address] Oct, [facility] [address] [id number] [address] [place] [address], [place] [address] Oct, [facility] [address] [id number] [address] [place] [address], [place] [address] Sep, [facility] [address] [id number] [address] [place] [address], [place] [address] Aug, Low back pain M54.5 and Othe r chronic pain G89.29 [facility] [address] [id number] [address] [place] [address], [place] [address] Jul, [facility] [address] [id number] [address] [place] [address], [place] [address] Jul, [facility] [address] [id number] [address] [place] [address], [place] [address] Jul, [facility] [address] [id number] [address] [place] [address], [place] [address] May, [facility] [address] [id number] [address] [place] [address], [place] [address] May, [facility] [address] [id number] [address] [place] [address], [place] [address] Apr, [facility] [address] [id number] [address] [place] [address] Mar, [facility] [address] [id number] [address] [place] [address] February, Low back pain M54.5 [facility] [address] [id number] [address] [place] [address] February, Low back pain M54.5 [facility] [address] [id number] [address] [place] [address] Dec, Low back pain M54.5 and Ami roesophageal reflux disease with esophagitis K21.0 [facility] [address] [id number] [address] [place] [address] Dec, [facility] [address] [id number] [address] [place] [address] Oct, [facility] [address] [id number] [address] [place] [address] Sep, [facility] [address] [id number] [address] [place] [address] Sep, [facility] [address] [id number] [address] [place] [address] Aug, Back pain 724.5 [facility] [address] [id number] [address] [place] [address] Jul, Back pain 724.5 [facility] [address] [id number] [address] [place] [address] Jun, Back pain 724.5 [facility] [address] [id number] [address] [place] [address] May, Back pain 724.5 [facility] [address] [id number] [address] [place] [address] Apr, [facility] [address] [id number] [address] [place] [address] Mar, [facility] [address] [id number] [address] [place] [address], [place] [address] 14 Jan, 2015 [facility] [address] [id number] [address] [place] [address], [place] [address] Jan, [facility] [address] [id number] [address] [place] [address], [place] [address] Dec, [facility] [address] [id number] [address] [place] [address], [place] [address] Dec, [facility] [address] [id number] [address] [place] [address], [place] [address] Dec, [facility] [address] [id number] [address] [place] [address], [place] [address] Dec, [facility] [address] [id number] [address] [place] [address], [place] [address] Nov, [facility] [address] [id number] [address] [place] [address], [place] [address] Nov, [facility] [address] [id number] [address] [place] [address], [place] [address] Oct, [facility] [address] [id number] [address] [place] [address], [place] [address] Oct, [facility] [address] [id number] [address] [place] [address], [place] [address] Sep, [facility] [address] [id number] [address] [place] [address] Sep, [facility] [address] [id number] [address] [place] [address], [place] [address] Jul, [facility] [address] [id number] [address] [place] [address], [place] [address] Jul, [facility] [address] [id number] [address] [place] [address], [place] [address] Jul, [facility] [address] [id number] [facility] [place] [address] 22 Jun, 2014 [facility] [address] [id number] [address] [place] [address], [place] [address] 22 Jun, 2014 [facility] [address] [id number] [address] [place] [address], [place] [address] Jun, [facility] [address] [id number] [address] [place] [address], [place] [address] Jun, [facility] [address] [id number] [address] [place] [address], [place] [address] May, [facility] [address] [id number] [address] [place] [address], [place] [address] May, [facility] [address] [id number] [address] [place] [address], [place] [address] May, [facility] [address] [id number] [address] [place] [address], [place] [address] May, [facility] [address] [id number] [address] [place] [address], [place] [address] Apr, [facility] [address] [id number] [address] [place] [address], [place] [address] Apr, [facility] [address] [id number] [address] [place] [address], [place] [address] Mar, [facility] [address] [id number] [address] [place] [address], [place] [address] Mar, [facility] [address] [id number] [address] [place] [address], [place] [address] Jan, [facility] [address] [id number] [address] [place] [address], [place] [address] Jan, [facility] [address] [id number] [address] [place] [address], [place] [address] Dec, [facility] [address] [id number] [address] [place] [address], [place] [address] Dec, [facility] [address] [id number] [address] [place] [address], [place] [address] Nov, [facility] [address] [id number] [address] [place] [address], [place] [address] Nov, [facility] [address] [id number] [address] [place] [address], [place] [address] Sep, [facility] [address] [id number] [address] [place] [address], [place] [address] Sep, [facility] [address] [id number] [address] [place] [address], [place] [address] Sep, [facility] [address] [id number] [address] [place] [address], [place] [address] Sep, [facility] [address] [id number] [address] [place] [address], [place] [address] Aug, [facility] [address] [id number] [address] [place] [address] Aug, [facility] [address] [id number] [address] [place] [address], [place] [address] May, [facility] [address] [id number] [address] [place] [address] Apr, [facility] [address] [id number] [address] [place] [address] Mar, [facility] [address] [id number] [address] [place] [address] February, [facility] [address] [id number] [address] [place] [address], [place] [address] Jan, [facility] [address] [id number] [address] [place] [address] Jan, [facility] [address] [id number] [address] [place] [address] Jan, [facility] [address] [id number] [address] [place] [address] 15 Dec, 2012 [facility] [address] [id number] [address] [place] [address] 13 Dec, 2012 [facility] [address] [id number] [address] [place] [address] 13 Dec, 2012 [facility] [address] [id number] [address] [place] [address] Oct, [facility] [address] [id number] [address] [place] [address] Sep, [facility] [address] [id number] [address] [place] [address] Sep, [facility] [address] [id number] [address] [place] [address] Aug, [facility] [address] [id number] [address] [place] [address] Aug, [facility] [address] [id number] [address] [place] [address] Aug, [facility] [address] [id number] [address] [place] [address] Aug, [facility] [address] [facility] [id number] [address] [place] [address] Aug, [facility] [address] [id number] [address] [place] [address] Jun, [facility] [address] [id number] [address] [place] [address] May, [facility] [address] [id number] [address] [place] [address] Mar, [facility] [address] [id number] [address] [place] [address] Sep, IMMUNIZATIONS No Known Immunizations SOCIAL HISTORY Never Assessed REASON FOR VISIT PLAN OF CARE VITAL SIGNS MEDICATIONS No Known Medications RESULTS No Results PROCEDURES No Known procedures INSTRUCTIONS MEDICATIONS ADMINISTERED No Known Medications MEDICAL (GENERAL) HISTORY Type Description Date Medical History scolosis
--- OUTSIDE RECORDS SUMMARY | 2020-01-07 19:48 | XMS REPORT ---
Author Author Jacob ROSALES Organization [facility] Address [address] [place] [address] Care Team Providers Care Baby Attendant Name Role Phone ESTELA ROSALES Unavailable PROBLEMS Type Condition ICD9-CM Code [id number] Code Onset Dates Condition S tatus SNOMED Code Problem Other chronic pain G89.29 Active 8 [id number] Problem Mood disorder F39 Active [id number] 05 ALLERGIES No Information ENCOUNTERS Encounter Location Date Diagnosis [facility] [address] [address] 18 Nov, 2019 OUTREACH [facility] [address] [facility] [address] [id number] [address] 11 Nov, 2019 Encounter for immunization Z 23 [facility] [address], [place] [id number] Nov, Low back pain M54.5 ; Other chronic pain G89.29 and Mood disorder F39 [facility] [address] [address] Oct, Low back pain M54.5 and Other chronic pa in G89.29 [facility] [address] [address] Sep, [facility] [address] [address] Aug, [facility] [address] [address] Jul, [facility] [address] [address] Jul, [facility] [address] [address] Jul, [facility] [address] [address] Jun, [facility] [address] [id number] [place] [address] Jun, [facility] [address] [facility] [id number] [place] [address] May, [facility] [id number] [place] [address] Apr, [facility] [id number] [place] [address] Apr, [facility] [id number] [place] [address] February, [facility] [id number] [place] [address] February, [facility] [id number] [place] [address] Jan, [facility] [id number] [place] [address] Nov, [facility] [id number] [place] [address] Oct, [facility] [id number] [place] [address] Oct, [facility] [id number] [place] [address] Sep, [facility] [id number] [place] [address] Aug, Low back pain M54.5 and Other chronic pa in G89.29 [facility] [id number] [place] [address] Jul, [facility] [id number] [place] [address] Jul, [facility] [id number] [place] [address] Jul, [facility] [id number] [place] [address] May, [facility] [id number] [place] [address] May, [facility] [id number] [place] [address] Apr, [facility] [id number] [place] [address] Mar, [facility] [address] [address] February, Low back pain M54.5 [facility] [address] [address] February, Low back pain M54.5 [facility] [id number] [place] [address] Dec, Low back pain M54.5 and Gastroesophageal reflux disease with esophagitis K21.0 [facility] [id number] [place] [address] Dec, [facility] [id number] [place] [address] Oct, [facility] [id number] [place] [address] Sep, [facility] [id number] [place] [address] Sep, [facility] [address] [address] Aug, Back pain 724.5 [facility] [address] [facility] [id number] [place] [address] 07 Jul, 2015 Back pain 724.5 [facility] [address] [address] 09 Jun, 2015 Back pain 724.5 [facility] [address] [facility] [id number] [place] [address] May, Back pain 724.5 [facility] [address] [place] [address] Apr, [facility] [address] [facility] [id number] [place] [address] Mar, [facility] [address] [facility] [id number] [place] [address] Jan, [facility] [address] [facility] [id number] [place] [address] Jan, [facility] [address] [facility] [id number] [place] [address] Dec, [facility] [address] [facility] [id number] [place] [address] Dec, [facility] [address] [id number] [place] [address] Dec, [facility] [address] [id number] [place] [address] Dec, [facility] [address] [id number] [place] [address] Nov, [facility] [address] [facility] [id number] [place] [address] Nov, [facility] [address] [id number] [place] [address] Oct, [facility] [address] [id number] [place] [address] Oct, [facility] [address] [facility] [id number] [place] [address] Sep, [facility] [address] [facility] [id number] [place] [address] Sep, [facility] [id number] [place] [address] Jul, [facility] [address] [facility] [id number] [place] [address] Jul, [facility] [address] [id number] [place] [address] Jul, [facility] [address] [facility] [id number] [place] [address] Jun, [facility] [address] [id number] [place] [address] Jun, [facility] [address] [id number] [place] [address] Jun, [facility] [address] [id number] [place] [address] Jun, [facility] [address] [id number] [place] [address] May, [facility] [address] [id number] [place] [address] May, [facility] [address] [facility] [id number] [place] [address] May, [facility] [address] [id number] [place] [address] May, [facility] [address] [id number] [place] [address] Apr, [facility] [address] [facility] [id number] [place] [address] Apr, [facility] [address] [facility] [id number] [place] [address] Mar, [facility] [address] [facility] [id number] [place] [address] Mar, [facility] [address] [facility] [id number] [place] [address] Jan, [facility] [address] [facility] [id number] [place] [address] Jan, [facility] [address] [facility] [id number] [place] [address] Dec, [facility] [address] [facility] [id number] [place] [address] Dec, [facility] [address] [facility] [id number] [place] [address] Nov, [facility] [address] [facility] [id number] [place] [address] Nov, [facility] [address] [facility] [id number] [place] [address] Sep, [facility] [address] [facility] [id number] [place] [address] Sep, [facility] [address] [facility] [id number] [place] [address] Sep, [facility] [address] [facility] [id number] [place] [address] Sep, [facility] [address] [facility] [id number] [place] [address] Aug, [facility] [address] [id number] [place] [address] Aug, [facility] [address] [facility] [id number] [place] [address] May, [facility] [address] [id number] [place] [address] Apr, [facility] [address] [id number] [place] [address] Mar, [facility] [address] [id number] [place] [address] February, [facility] [address] [id number] [place] [address] Jan, [facility] [address] [id number] [place] [address] Jan, [facility] [address] [facility] [id number] [place] [address] Jan, [facility] [address] [facility] [id number] [place] [address] Dec, [facility] [address] [facility] [id number] [place] [address] Dec, [facility] [address] [facility] [id number] [place] [address] Dec, [facility] [address] [facility] [id number] [place] [address] Oct, [facility] [address] [facility] [id number] [place] [address] Sep, [facility] [address] [facility] [id number] [place] [address] Sep, [facility] [id number] [place] [address] Aug, [facility] [id number] [place] [address] Aug, [facility] [id number] [place] [address] Aug, [facility] [id number] [place] [address] Aug, [facility] [id number] [place] [address] Aug, [facility] [id number] [place] [address] Jun, [facility] [id number] [place] [address] May, [facility] [id number] [place] [address] Mar, [facility] [address] [facility] [id number] [place] [address] Sep, IMMUNIZATIONS No Known Immunizations SOCIAL HISTORY Never Assessed REASON FOR VISIT PLAN OF CARE VITAL SIGNS Height 69 in 2013-11-19 Weight 134 lbs 2013-11-19 Temperature 98.4 degrees Fahrenheit 2013-11-19 Heart Rate 80 bpm 2013-11-19 Respiratory Rate 20 2013-11-19 Blood pressure systolic 132 mmHg 2013-11-19 Blood pressure diastolic 72 mmHg 2013-11-19 MEDICATIONS Unknown Medications RESULTS No Results PROCEDURES No Known procedures INSTRUCTIONS MEDICATIONS ADMINISTERED No Known Medications MEDICAL (GENERAL) HISTORY Type Description Date Medical History scolosis Surgical History No know Surgical history
--- OUTSIDE RECORDS SUMMARY | 2020-01-07 19:48 | XMS REPORT ---
Author Author Jacob ROSALES Organization [facility] Address [address] [place] [address] Care Team Providers Care Manager Staffing Name Role Phone ESTELA ROSALES Unavailable PROBLEMS Type Condition ICD9-CM Code LTB40-LS Code Onset Dates Condition S tatus SNOMED Code Problem Other chronic pain G89.29 Active 8 [id number] ALLERGIES No Information ENCOUNTERS Encounter Location Date Diagnosis [facility] [address] [id number] [address] [place] [id number] Oct, Low back pain M54.5 and Othe r chronic pain G89.29 [facility] [address] [id number] [address] [place] [phone] Sep, [facility] [address] [id number] [address] [place] [phone] Aug, [facility] [address] [id number] [address] [place] [phone] Jul, [facility] [address] [id number] [address] [place] [phone] Jul, [facility] [address] [id number] [address] [place] [phone] Jul, [facility] [address] [id number] [address] [place] [phone] Jun, [facility] [address] [id number] [address] [place] [phone] Jun, [facility] [address] [id number] [address] [place] [phone] May, [facility] [address] [facility] [id number] [address] [place] [phone] Apr, [facility] [address] [id number] [address] [place] [address], [place] [id number] Apr, [facility] [address] [id number] [address] [place] [address], [place] [id number] February, [facility] [address] [id number] [address] [place] [address], [place] [address] February, [facility] [address] [id number] [address] [place] [address], [place] [phone] Jan, [facility] [address] [id number] [address] [place] [address], [place] [id number] Nov, [facility] [address] [id number] [address] [place] [address], [place] [address] Oct, [facility] [address] [id number] [address] [place] [address], [place] [address] Oct, [facility] [address] [id number] [address] [place] [address], [place] [address] Sep, [facility] [address] [id number] [address] [place] [address], [place] [address] Aug, Low back pain M54.5 and Othe r chronic pain G89.29 [facility] [address] [id number] [address] [place] [address], [place] [id number] Jul, [facility] [address] [id number] [address] [place] [address], [place] [id number] Jul, [facility] [address] [id number] [address] [place] [address], [place] [id number] Jul, [facility] [address] [id number] [address] [place] [address], [place] [phone] May, [facility] [address] [id number] [address] [place] [address], [place] [id number] May, [facility] [address] [id number] [address] [place] [address], [place] [address] Apr, [facility] [address] [id number] [address] [place] [phone] Mar, [facility] [address] [id number] [address] [place] [phone] February, Low back pain M54.5 [facility] [address] [id number] [address] [place] [phone] February, Low back pain M54.5 [facility] [address] [id number] [address] [place] [id number] Dec, Low back pain M54.5 and Ami roesophageal reflux disease with esophagitis K21.0 [facility] [address] [id number] [address] [place] [phone] Dec, [facility] [address] [id number] [address] [place] [phone] Oct, [facility] [address] [id number] [address] [place] [phone] Sep, [facility] [address] [id number] [address] [place] [phone] Sep, [facility] [address] [id number] [address] [place] [phone] Aug, Back pain 724.5 [facility] [address] [id number] [address] [place] [phone] Jul, Back pain 724.5 [facility] [address] [id number] [address] [place] [id number] Jun, Back pain 724.5 [facility] [address] [id number] [address] [place] [phone] May, Back pain 724.5 [facility] [address] [id number] [address] [place] [phone] Apr, [facility] [address] [id number] [address] [place] [phone] Mar, [facility] [address] [id number] [address] [place] [address], [place] [id number] 14 Jan, 2015 [facility] [address] [id number] [address] [place] [address], [place] [id number] Jan, [facility] [address] [id number] [address] [place] [address], [place] [address] Dec, [facility] [address] [id number] [address] [place] [address], [place] [address] Dec, [facility] [address] [id number] [address] [place] [address], [place] [id number] Dec, [facility] [address] [id number] [address] [place] [address], [place] [phone] Dec, [facility] [address] [id number] [address] [place] [address], [place] [id number] Nov, [facility] [address] [id number] [address] [place] [address], [place] [id number] Nov, [facility] [address] [id number] [address] [place] [address], [place] [id number] Oct, [facility] [address] [id number] [address] [place] [address], [place] [address] Oct, [facility] [address] [id number] [address] [place] [address], [place] [address] Sep, [facility] [address] [id number] [address] [place] [phone] Sep, [facility] [address] [id number] [address] [place] [address], [place] [phone] Jul, [facility] [address] [id number] [address] [place] [address], [place] [id number] Jul, [facility] [address] [id number] [address] [place] [address], [place] [id number] Jul, [facility] [address] [id number] [facility] [place] [address] 22 Jun, 2014 [facility] [address] [id number] [address] [place] [address], [place] [id number] 22 Jun, 2014 [facility] [address] [id number] [address] [place] [address], [place] [id number] Jun, [facility] [address] [id number] [address] [place] [address], [place] [id number] Jun, [facility] [address] [id number] [address] [place] [address], [place] [phone] May, [facility] [address] [id number] [address] [place] [address], [place] [id number] May, [facility] [address] [id number] [address] [place] [address], [place] [id number] May, [facility] [address] [id number] [address] [place] [address], [place] [phone] May, [facility] [address] [id number] [address] [place] [address], [place] [id number] Apr, [facility] [address] [id number] [address] [place] [address], [place] [phone] Apr, [facility] [address] [id number] [address] [place] [address], [place] [address] Mar, [facility] [address] [id number] [address] [place] [address], [place] [id number] Mar, [facility] [address] [id number] [address] [place] [address], [place] [address] Jan, [facility] [address] [id number] [address] [place] [address], [place] [address] Jan, [facility] [address] [id number] [address] [place] [address], [place] [id number] Dec, [facility] [address] [id number] [address] [place] [address], [place] [phone] Dec, [facility] [address] [id number] [address] [place] [address], [place] [address] Nov, [facility] [address] [id number] [address] [place] [address], [place] [id number] Nov, [facility] [address] [id number] [address] [place] [address], [place] [address] Sep, [facility] [address] [id number] [address] [place] [address], [place] [address] Sep, [facility] [address] [id number] [address] [place] [address], [place] [address] Sep, [facility] [address] [id number] [address] [place] [address], [place] [address] Sep, [facility] [address] [id number] [address] [place] [address], [place] [address] Aug, [facility] [address] [id number] [address] [place] [phone] Aug, [facility] [address] [id number] [address] [place] [address], [place] [id number] May, [facility] [address] [id number] [address] [place] [phone] Apr, [facility] [address] [id number] [address] [place] [phone] Mar, [facility] [address] [id number] [address] [place] [phone] February, [facility] [address] [id number] [address] [place] [address], [place] [address] Jan, [facility] [address] [id number] [address] [place] [phone] Jan, [facility] [address] [id number] [address] [place] [phone] Jan, [facility] [address] [id number] [address] [place] [phone] 15 Dec, 2012 [facility] [address] [id number] [address] [place] [id number] 13 Dec, 2012 [facility] [address] [id number] [address] [place] [id number] 13 Dec, 2012 [facility] [address] [id number] [address] [place] [phone] Oct, [facility] [address] [id number] [address] [place] [phone] Sep, [facility] [address] [id number] [address] [place] [phone] Sep, [facility] [address] [id number] [address] [place] [phone] Aug, [facility] [address] [id number] [address] [place] [phone] Aug, [facility] [address] [id number] [address] [place] [phone] Aug, [facility] [address] [id number] [address] [place] [id number] Aug, [facility] [address] [facility] [id number] [address] [place] [phone] Aug, [facility] [address] [id number] [address] [place] [phone] Jun, [facility] [address] [id number] [address] [place] [phone] May, [facility] [address] [id number] [address] [place] [phone] Mar, [facility] [address] [id number] [address] [place] [phone] Sep, IMMUNIZATIONS No Known Immunizations SOCIAL HISTORY Never Assessed REASON FOR VISIT PLAN OF CARE VITAL SIGNS MEDICATIONS No Known Medications RESULTS No Results PROCEDURES No Known procedures INSTRUCTIONS MEDICATIONS ADMINISTERED No Known Medications MEDICAL (GENERAL) HISTORY Type Description Date Medical History scolosis
--- OUTSIDE RECORDS SUMMARY | 2020-01-07 19:49 | XMS REPORT ---
Author Author Jacob Alonso Doctor Organization [facility] Address Unknown Phone Unavailable Care Team Providers Care Senior Painter Name Role Phone Migration, Doctor Unavailable Unavailable PROBLEMS Type Condition ICD9-CM Code [id number] Code Onset Dates Condition S tatus SNOMED Code Problem Other chronic pain G89.29 Active 8 [id number] ALLERGIES No Information ENCOUNTERS Encounter Location Date Diagnosis [facility] [address] [id number] [address] [place] [id number] Oct, Low back pain M54.5 and Othe r chronic pain G89.29 [facility] [address] [id number] [address] [place] [phone] Sep, [facility] [address] [id number] [address] [place] [phone] Aug, [facility] [address] [id number] [address] [place] [phone] Jul, [facility] [address] [id number] [address] [place] [phone] Jul, [facility] [address] [id number] [address] [place] [phone] Jul, [facility] [address] [id number] [address] [place] [phone] Jun, [facility] [address] [id number] [address] [place] [phone] Jun, [facility] [address] [id number] [address] [place] [phone] May, [facility] [address] [id number] [address] [place] [phone] Apr, [facility] [address] [id number] [address] [place] [phone] Apr, [facility] [address] [id number] [address] [place] [address], [place] [address] February, [facility] [address] [id number] [address] [place] [phone] February, [facility] [address] [id number] [address] [place] [address], [place] [address] Jan, [facility] [address] [id number] [address] [place] [phone] Nov, [facility] [address] [id number] [address] [place] [phone] Oct, [facility] [address] [id number] [address] [place] [phone] Oct, [facility] [address] [id number] [address] [place] [phone] Sep, [facility] [address] [id number] [address] [place] [phone] Aug, Low back pain M54.5 and Othe r chronic pain G89.29 [facility] [address] [id number] [address] [place] [id number] Jul, [facility] [address] [id number] [address] [place] [phone] Jul, [facility] [address] [id number] [address] [place] [phone] Jul, [facility] [address] [id number] [address] [place] [phone] May, [facility] [address] [id number] [address] [place] [phone] May, [facility] [address] [id number] [address] [place] [phone] Apr, [facility] [address] [id number] [address] [place] [phone] Mar, [facility] [address] [id number] [address] [place] [id number] February, Low back pain M54.5 [facility] [address] [id number] [address] [place] [phone] February, Low back pain M54.5 [facility] [address] [id number] [address] [place] [phone] Dec, Low back pain M54.5 and Ami roesophageal reflux disease with esophagitis K21.0 [facility] [address] [id number] [address] [place] [phone] Dec, [facility] [address] [id number] [address] [place] [phone] Oct, [facility] [address] [id number] [address] [place] [id number] Sep, [facility] [address] [id number] [address] [place] [phone] Sep, [facility] [address] [id number] [address] [place] [phone] Aug, Back pain 724.5 [facility] [address] [id number] [address] [place] [phone] Jul, Back pain 724.5 [facility] [address] [id number] [address] [place] [phone] Jun, Back pain 724.5 [facility] [address] [id number] [address] [place] [phone] May, Back pain 724.5 [facility] [address] [id number] [address] [place] [phone] Apr, [facility] [address] [id number] [address] [place] [phone] Mar, [facility] [address] [id number] [address] [place] [address], [place] [address] 14 Jan, 2015 [facility] [address] [id number] [address] [place] [address], [place] [address] 13 Jan, 2015 [facility] [address] [id number] [address] [place] [address], [place] [address] Dec, [facility] [address] [id number] [address] [place] [address], [place] [address] Dec, [facility] [address] [id number] [address] [place] [address], [place] [address] Dec, [facility] [address] [id number] [address] [place] [address], [place] [address] Dec, [facility] [address] [id number] [address] [place] [address], [place] [address] Nov, [facility] [address] [id number] [address] [place] [address], [place] [address] Nov, [facility] [address] [id number] [address] [place] [address], [place] [address] Oct, [facility] [address] [id number] [address] [place] [address], [place] [address] Oct, [facility] [address] [id number] [address] [place] [address], [place] [address] Sep, [facility] [address] [id number] [address] [place] [address], [place] [address] Sep, [facility] [address] [id number] [address] [place] [address], [place] [address] Jul, [facility] [address] [id number] [address] [place] [address], [place] [address] Jul, [facility] [address] [id number] [address] [place] [address], [place] [address] Jul, [facility] [address] [id number] [address] [place] [address], [place] [address] Jun, [facility] [address] [id number] [address] [place] [address], [place] [address] Jun, [facility] [address] [id number] [address] [place] [address], [place] [address] Jun, [facility] [address] [id number] [address] [place] [address], [place] [address] Jun, [facility] [address] [id number] [address] [place] [address], [place] [address] May, [facility] [address] [id number] [address] [place] [address], [place] [address] May, [facility] [address] [id number] [address] [place] [address], [place] [address] May, [facility] [address] [id number] [address] [place] [address], [place] [address] May, [facility] [address] [id number] [address] [place] [address], [place] [address] Apr, [facility] [address] [id number] [address] [place] [address], [place] [address] Apr, [facility] [address] [id number] [address] [place] [address], [place] [address] Mar, [facility] [address] [id number] [address] [place] [address], [place] [address] Mar, [facility] [address] [id number] [address] [place] [address], [place] [address] Jan, [facility] [address] [id number] [address] [place] [address], [place] [address] Jan, [facility] [address] [id number] [address] [place] [address], [place] [address] Dec, [facility] [address] [id number] [address] [place] [address], [place] [address] Dec, [facility] [address] [id number] [address] [place] [address], [place] [address] Nov, [facility] [address] [id number] [address] [place] [address], [place] [address] Nov, [facility] [address] [id number] [address] [place] [address], [place] [address] Sep, [facility] [address] [id number] [address] [place] [address], [place] [address] Sep, [facility] [address] [id number] [address] [place] [address], [place] [address] Sep, [facility] [address] [id number] [address] [place] [address], [place] [address] Sep, [facility] [address] [id number] [address] [place] [address], [place] [address] Aug, [facility] [address] [id number] [address] [place] [address], [place] [address] Aug, [facility] [address] [id number] [address] [place] [address], [place] [address] May, [facility] [address] [id number] [address] [place] [address], [place] [address] Apr, [facility] [address] [id number] [address] [place] [address], [place] [address] Mar, [facility] [address] [id number] [address] [place] [address], [place] [address] February, [facility] [address] [id number] [address] [place] [phone] Jan, [facility] [address] [id number] [address] [place] [address], [place] [address] Jan, [facility] [address] [id number] [address] [place] [address], [place] [address] Jan, [facility] [address] [id number] [address] [place] [address], [place] [address] Dec, [facility] [address] [id number] [address] [place] [phone] 13 Dec, 2012 [facility] [address] [id number] [address] [place] [phone] Dec, [facility] [address] [id number] [address] [place] [phone] Oct, [facility] [address] [id number] [address] [place] [id number] Sep, [facility] [address] [id number] [address] [place] [id number] Sep, [facility] [address] [id number] [address] [place] [phone] Aug, [facility] [address] [id number] [address] [place] [phone] Aug, [facility] [address] [id number] [address] [place] [phone] Aug, [facility] [address] [id number] [address] [place] [id number] Aug, [facility] [address] [id number] [address] [place] [phone] Aug, [facility] [address] [id number] [address] [place] [phone] Jun, [facility] [address] [id number] [address] [place] [phone] May, [facility] [address] [id number] [address] [place] [phone] Mar, [facility] [address] [id number] [address] [place] [phone] Sep, IMMUNIZATIONS No Known Immunizations SOCIAL HISTORY Never Assessed REASON FOR VISIT EMR-[facility] PLAN OF CARE VITAL SIGNS MEDICATIONS Medication Instructions Dosage Frequency Start Date End Date Duration S tatus Amoxicillin 500 mg 1 capsule by Oral route 3 times per day for 10 day(s) Jan, Active RESULTS No Results PROCEDURES No Known procedures INSTRUCTIONS MEDICATIONS ADMINISTERED No Known Medications MEDICAL (GENERAL) HISTORY Type Description Date Medical History scolosis
--- OUTSIDE RECORDS SUMMARY | 2020-01-07 19:49 | XMS REPORT ---
Author Author Jacob ROSALES Organization [facility] Address [address] [place] [address] Care Team Providers Care Assistant Finance Manager Name Role Phone ESTELA ROSALES Unavailable PROBLEMS Type Condition ICD9-CM Code [id number] Code Onset Dates Condition S tatus SNOMED Code Problem Other chronic pain G89.29 Active 8 [id number] ALLERGIES No Information ENCOUNTERS Encounter Location Date Diagnosis [facility] [address] [id number] [address] [place] [phone] Oct, Low back pain M54.5 and Othe r chronic pain G89.29 [facility] [address] [id number] [address] [place] [phone] Sep, [facility] [address] [id number] [address] [place] [phone] Aug, [facility] [address] [id number] [address] [place] [phone] Jul, [facility] [address] [id number] [address] [place] [phone] Jul, [facility] [address] [id number] [address] [place] [phone] Jul, [facility] [address] [id number] [address] [place] [phone] Jun, [facility] [address] [id number] [address] [place] [phone] Jun, [facility] [address] [id number] [address] [place] [id number] May, [facility] [address] [facility] [id number] [address] [place] [phone] Apr, [facility] [address] [id number] [address] [place] [address], [place] [address] Apr, [facility] [address] [id number] [address] [place] [address], [place] [address] February, [facility] [address] [id number] [address] [place] [address], [place] [address] February, [facility] [address] [id number] [address] [place] [address], [place] [address] Jan, [facility] [address] [id number] [address] [place] [address], [place] [address] Nov, [facility] [address] [id number] [address] [place] [address], [place] [address] Oct, [facility] [address] [id number] [address] [place] [address], [place] [address] Oct, [facility] [address] [id number] [address] [place] [address], [place] [address] Sep, [facility] [address] [id number] [address] [place] [address], [place] [address] Aug, Low back pain M54.5 and Othe r chronic pain G89.29 [facility] [address] [id number] [address] [place] [address], [place] [address] Jul, [facility] [address] [id number] [address] [place] [address], [place] [address] Jul, [facility] [address] [id number] [address] [place] [address], [place] [address] Jul, [facility] [address] [id number] [address] [place] [address], [place] [address] May, [facility] [address] [id number] [address] [place] [address], [place] [address] May, [facility] [address] [id number] [address] [place] [address], [place] [address] Apr, [facility] [address] [id number] [address] [place] [phone] Mar, [facility] [address] [id number] [address] [place] [phone] February, Low back pain M54.5 [facility] [address] [id number] [address] [place] [phone] February, Low back pain M54.5 [facility] [address] [id number] [address] [place] [phone] Dec, Low back pain M54.5 and Ami roesophageal reflux disease with esophagitis K21.0 [facility] [address] [id number] [address] [place] [phone] Dec, [facility] [address] [id number] [address] [place] [phone] Oct, [facility] [address] [id number] [address] [place] [phone] Sep, [facility] [address] [id number] [address] [place] [phone] Sep, [facility] [address] [id number] [address] [place] [phone] Aug, Back pain 724.5 [facility] [address] [id number] [address] [place] [phone] Jul, Back pain 724.5 [facility] [address] [id number] [address] [place] [phone] Jun, Back pain 724.5 [facility] [address] [id number] [address] [place] [phone] May, Back pain 724.5 [facility] [address] [id number] [address] [place] [phone] Apr, [facility] [address] [id number] [address] [place] [phone] Mar, [facility] [address] [id number] [address] [place] [address], [place] [address] 14 Jan, 2015 [facility] [address] [id number] [address] [place] [address], [place] [address] Jan, [facility] [address] [id number] [address] [place] [address], [place] [address] Dec, [facility] [address] [id number] [address] [place] [address], [place] [address] Dec, [facility] [address] [id number] [address] [place] [address], [place] [address] Dec, [facility] [address] [id number] [address] [place] [address], [place] [address] Dec, [facility] [address] [id number] [address] [place] [address], [place] [address] Nov, [facility] [address] [id number] [address] [place] [address], [place] [address] Nov, [facility] [address] [id number] [address] [place] [address], [place] [address] Oct, [facility] [address] [id number] [address] [place] [address], [place] [address] Oct, [facility] [address] [id number] [address] [place] [address], [place] [address] Sep, [facility] [address] [id number] [address] [place] [phone] Sep, [facility] [address] [id number] [address] [place] [address], [place] [address] Jul, [facility] [address] [id number] [address] [place] [address], [place] [address] Jul, [facility] [address] [id number] [address] [place] [address], [place] [address] Jul, [facility] [address] [id number] [facility] [place] [address] 22 Jun, 2014 [facility] [address] [id number] [address] [place] [address], [place] [address] 22 Jun, 2014 [facility] [address] [id number] [address] [place] [address], [place] [address] Jun, [facility] [address] [id number] [address] [place] [address], [place] [address] Jun, [facility] [address] [id number] [address] [place] [address], [place] [address] May, [facility] [address] [id number] [address] [place] [address], [place] [address] May, [facility] [address] [id number] [address] [place] [address], [place] [address] May, [facility] [address] [id number] [address] [place] [address], [place] [address] May, [facility] [address] [id number] [address] [place] [address], [place] [address] Apr, [facility] [address] [id number] [address] [place] [address], [place] [address] Apr, [facility] [address] [id number] [address] [place] [address], [place] [address] Mar, [facility] [address] [id number] [address] [place] [address], [place] [address] Mar, [facility] [address] [id number] [address] [place] [address], [place] [address] Jan, [facility] [address] [id number] [address] [place] [address], [place] [address] Jan, [facility] [address] [id number] [address] [place] [address], [place] [address] Dec, [facility] [address] [id number] [address] [place] [address], [place] [address] Dec, [facility] [address] [id number] [address] [place] [address], [place] [address] Nov, [facility] [address] [id number] [address] [place] [address], [place] [address] Nov, [facility] [address] [id number] [address] [place] [address], [place] [address] Sep, [facility] [address] [id number] [address] [place] [address], [place] [address] Sep, [facility] [address] [id number] [address] [place] [address], [place] [address] Sep, [facility] [address] [id number] [address] [place] [address], [place] [address] Sep, [facility] [address] [id number] [address] [place] [address], [place] [address] Aug, [facility] [address] [id number] [address] [place] [phone] Aug, [facility] [address] [id number] [address] [place] [address], [place] [address] May, [facility] [address] [id number] [address] [place] [phone] Apr, [facility] [address] [id number] [address] [place] [phone] Mar, [facility] [address] [id number] [address] [place] [phone] February, [facility] [address] [id number] [address] [place] [address], [place] [address] Jan, [facility] [address] [id number] [address] [place] [phone] Jan, [facility] [address] [id number] [address] [place] [phone] Jan, [facility] [address] [id number] [address] [place] [phone] 15 Dec, 2012 [facility] [address] [id number] [address] [place] [phone] 13 Dec, 2012 [facility] [address] [id number] [address] [place] [id number] 13 Dec, 2012 [facility] [address] [id number] [address] [place] [phone] Oct, [facility] [address] [id number] [address] [place] [phone] Sep, [facility] [address] [id number] [address] [place] [phone] Sep, [facility] [address] [id number] [address] [place] [phone] Aug, [facility] [address] [id number] [address] [place] [phone] Aug, [facility] [address] [id number] [address] [place] [phone] Aug, [facility] [address] [id number] [address] [place] [phone] Aug, [facility] [address] [facility] [id number] [address] [place] [id number] Aug, [facility] [address] [id number] [address] [place] [phone] Jun, [facility] [address] [id number] [address] [place] [phone] May, [facility] [address] [id number] [address] [place] [phone] Mar, [facility] [address] [id number] [address] [place] [phone] Sep, IMMUNIZATIONS No Known Immunizations SOCIAL HISTORY Never Assessed REASON FOR VISIT PLAN OF CARE VITAL SIGNS MEDICATIONS No Known Medications RESULTS No Results PROCEDURES No Known procedures INSTRUCTIONS MEDICATIONS ADMINISTERED No Known Medications MEDICAL (GENERAL) HISTORY Type Description Date Medical History scolosis
--- OUTSIDE RECORDS SUMMARY | 2020-01-07 19:49 | XMS REPORT ---
Author Author Jacob ROSALES Organization [facility] Address [address] [place] [address] Care Team Providers Care Carpentry Teacher Name Role Phone ESTELA ROSALES Unavailable PROBLEMS Type Condition ICD9-CM Code BGY59-LM Code Onset Dates Condition S tatus SNOMED Code Problem Other chronic pain G89.29 Active 8 [id number] ALLERGIES No Information ENCOUNTERS Encounter Location Date Diagnosis [facility] [address] [id number] [address] [place] [id number] Oct, Low back pain M54.5 and Othe r chronic pain G89.29 [facility] [address] [id number] [address] [place] [id number] Sep, [facility] [address] [id number] [address] [place] [phone] Aug, [facility] [address] [id number] [address] [place] [id number] Jul, [facility] [address] [id number] [address] [place] [phone] Jul, [facility] [address] [id number] [address] [place] [id number] Jul, [facility] [address] [id number] [address] [place] [phone] Jun, [facility] [address] [id number] [address] [place] [phone] Jun, [facility] [address] [id number] [address] [place] [phone] May, [facility] [address] [facility] [id number] [address] [place] [phone] Apr, [facility] [address] [id number] [address] [place] [address], [place] [address] Apr, [facility] [address] [id number] [address] [place] [address], [place] [address] February, [facility] [address] [id number] [address] [place] [address], [place] [address] February, [facility] [address] [id number] [address] [place] [address], [place] [address] Jan, [facility] [address] [id number] [address] [place] [address], [place] [address] Nov, [facility] [address] [id number] [address] [place] [address], [place] [address] Oct, [facility] [address] [id number] [address] [place] [address], [place] [address] Oct, [facility] [address] [id number] [address] [place] [address], [place] [address] Sep, [facility] [address] [id number] [address] [place] [address], [place] [address] Aug, Low back pain M54.5 and Othe r chronic pain G89.29 [facility] [address] [id number] [address] [place] [address], [place] [address] Jul, [facility] [address] [id number] [address] [place] [address], [place] [address] Jul, [facility] [address] [id number] [address] [place] [address], [place] [address] Jul, [facility] [address] [id number] [address] [place] [address], [place] [address] May, [facility] [address] [id number] [address] [place] [address], [place] [address] May, [facility] [address] [id number] [address] [place] [address], [place] [address] Apr, [facility] [address] [id number] [address] [place] [id number] Mar, [facility] [address] [id number] [address] [place] [phone] February, Low back pain M54.5 [facility] [address] [id number] [address] [place] [address] February, Low back pain M54.5 [facility] [address] [id number] [address] [place] [address] Dec, Low back pain M54.5 and Ami roesophageal reflux disease with esophagitis K21.0 [facility] [address] [id number] [address] [place] [id number] Dec, [facility] [address] [id number] [address] [place] [address] Oct, [facility] [address] [id number] [address] [place] [id number] Sep, [facility] [address] [id number] [address] [place] [id number] Sep, [facility] [address] [id number] [address] [place] [id number] Aug, Back pain 724.5 [facility] [address] [id number] [address] [place] [address] Jul, Back pain 724.5 [facility] [address] [id number] [address] [place] [id number] Jun, Back pain 724.5 [facility] [address] [id number] [address] [place] [address] May, Back pain 724.5 [facility] [address] [id number] [address] [place] [id number] Apr, [facility] [address] [id number] [address] [place] [id number] Mar, [facility] [address] [id number] [address] [place] [address], [place] [address] 14 Jan, 2015 [facility] [address] [id number] [address] [place] [address], [place] [address] Jan, [facility] [address] [id number] [address] [place] [address], [place] [address] Dec, [facility] [address] [id number] [address] [place] [address], [place] [address] Dec, [facility] [address] [id number] [address] [place] [address], [place] [address] Dec, [facility] [address] [id number] [address] [place] [address], [place] [address] Dec, [facility] [address] [id number] [address] [place] [address], [place] [address] Nov, [facility] [address] [id number] [address] [place] [address], [place] [address] Nov, [facility] [address] [id number] [address] [place] [address], [place] [address] Oct, [facility] [address] [id number] [address] [place] [address], [place] [address] Oct, [facility] [address] [id number] [address] [place] [address], [place] [address] Sep, [facility] [address] [id number] [address] [place] [address] Sep, [facility] [address] [id number] [address] [place] [address], [place] [address] Jul, [facility] [address] [id number] [address] [place] [address], [place] [address] Jul, [facility] [address] [id number] [address] [place] [address], [place] [address] Jul, [facility] [address] [id number] [facility] [place] [address] 22 Jun, 2014 [facility] [address] [id number] [address] [place] [address], [place] [address] 22 Jun, 2014 [facility] [address] [id number] [address] [place] [address], [place] [address] Jun, [facility] [address] [id number] [address] [place] [address], [place] [address] Jun, [facility] [address] [id number] [address] [place] [address], [place] [address] May, [facility] [address] [id number] [address] [place] [address], [place] [address] May, [facility] [address] [id number] [address] [place] [address], [place] [address] May, [facility] [address] [id number] [address] [place] [address], [place] [address] May, [facility] [address] [id number] [address] [place] [address], [place] [address] Apr, [facility] [address] [id number] [address] [place] [address], [place] [address] Apr, [facility] [address] [id number] [address] [place] [address], [place] [address] Mar, [facility] [address] [id number] [address] [place] [address], [place] [address] Mar, [facility] [address] [id number] [address] [place] [address], [place] [address] Jan, [facility] [address] [id number] [address] [place] [address], [place] [address] Jan, [facility] [address] [id number] [address] [place] [address], [place] [address] Dec, [facility] [address] [id number] [address] [place] [address], [place] [address] Dec, [facility] [address] [id number] [address] [place] [address], [place] [address] Nov, [facility] [address] [id number] [address] [place] [address], [place] [address] Nov, [facility] [address] [id number] [address] [place] [address], [place] [address] Sep, [facility] [address] [id number] [address] [place] [address], [place] [address] Sep, [facility] [address] [id number] [address] [place] [address], [place] [address] Sep, [facility] [address] [id number] [address] [place] [address], [place] [address] Sep, [facility] [address] [id number] [address] [place] [address], [place] [address] Aug, [facility] [address] [id number] [address] [place] [address] Aug, [facility] [address] [id number] [address] [place] [address], [place] [address] May, [facility] [address] [id number] [address] [place] [address] Apr, [facility] [address] [id number] [address] [place] [id number] Mar, [facility] [address] [id number] [address] [place] [address] February, [facility] [address] [id number] [address] [place] [address], [place] [address] Jan, [facility] [address] [id number] [address] [place] [address] Jan, [facility] [address] [id number] [address] [place] [address] Jan, [facility] [address] [id number] [address] [place] [id number] 15 Dec, 2012 [facility] [address] [id number] [address] [place] [address] 13 Dec, 2012 [facility] [address] [id number] [address] [place] [address] 13 Dec, 2012 [facility] [address] [id number] [address] [place] [address] Oct, [facility] [address] [id number] [address] [place] [address] Sep, [facility] [address] [id number] [address] [place] [address] Sep, [facility] [address] [id number] [address] [place] [address] Aug, [facility] [address] [id number] [address] [place] [id number] Aug, [facility] [address] [id number] [address] [place] [address] Aug, [facility] [address] [id number] [address] [place] [address] Aug, [facility] [address] [facility] [id number] [address] [place] [address] Aug, [facility] [address] [id number] [address] [place] [address] Jun, [facility] [address] [id number] [address] [place] [address] May, [facility] [address] [id number] [address] [place] [address] Mar, [facility] [address] [id number] [address] [place] [address] Sep, IMMUNIZATIONS No Known Immunizations SOCIAL HISTORY Never Assessed REASON FOR VISIT PLAN OF CARE VITAL SIGNS MEDICATIONS No Known Medications RESULTS No Results PROCEDURES No Known procedures INSTRUCTIONS MEDICATIONS ADMINISTERED No Known Medications MEDICAL (GENERAL) HISTORY Type Description Date Medical History scolosis
--- OUTSIDE RECORDS SUMMARY | 2020-01-07 19:49 | XMS REPORT ---
Author Author Jacob Alonso Doctor Organization [facility] Address Unknown Phone Unavailable Care Team Providers Care Patrol Lady Name Role Phone Migration, Doctor Unavailable Unavailable PROBLEMS Type Condition ICD9-CM Code [id number] Code Onset Dates Condition S tatus SNOMED Code Problem Other chronic pain G89.29 Active 8 [id number] ALLERGIES No Information ENCOUNTERS Encounter Location Date Diagnosis [facility] [address] [id number] [address] [place] [id number] Oct, Low back pain M54.5 and Othe r chronic pain G89.29 [facility] [address] [id number] [address] [place] [id number] Sep, [facility] [address] [id number] [address] [place] [phone] Aug, [facility] [address] [id number] [address] [place] [id number] Jul, [facility] [address] [id number] [address] [place] [id number] Jul, [facility] [address] [id number] [address] [place] [id number] Jul, [facility] [address] [id number] [address] [place] [id number] Jun, [facility] [address] [id number] [address] [place] [id number] Jun, [facility] [address] [id number] [address] [place] [id number] May, [facility] [address] [id number] [address] [place] [phone] Apr, [facility] [address] [id number] [address] [place] [phone] Apr, [facility] [address] [id number] [address] [place] [address], [place] [address] February, [facility] [address] [id number] [address] [place] [id number] February, [facility] [address] [id number] [address] [place] [address], [place] [id number] Jan, [facility] [address] [id number] [address] [place] [phone] Nov, [facility] [address] [id number] [address] [place] [phone] Oct, [facility] [address] [id number] [address] [place] [phone] Oct, [facility] [address] [id number] [address] [place] [phone] Sep, [facility] [address] [id number] [address] [place] [phone] Aug, Low back pain M54.5 and Othe r chronic pain G89.29 [facility] [address] [id number] [address] [place] [id number] Jul, [facility] [address] [id number] [address] [place] [id number] Jul, [facility] [address] [id number] [address] [place] [phone] Jul, [facility] [address] [id number] [address] [place] [phone] May, [facility] [address] [id number] [address] [place] [id number] May, [facility] [address] [id number] [address] [place] [id number] Apr, [facility] [address] [id number] [address] [place] [phone] Mar, [facility] [address] [id number] [address] [place] [id number] February, Low back pain M54.5 [facility] [address] [id number] [address] [place] [phone] February, Low back pain M54.5 [facility] [address] [id number] [address] [place] [id number] Dec, Low back pain M54.5 and Ami roesophageal reflux disease with esophagitis K21.0 [facility] [address] [id number] [address] [place] [id number] Dec, [facility] [address] [id number] [address] [place] [phone] Oct, [facility] [address] [id number] [address] [place] [phone] Sep, [facility] [address] [id number] [address] [place] [phone] Sep, [facility] [address] [id number] [address] [place] [phone] Aug, Back pain 724.5 [facility] [address] [id number] [address] [place] [phone] Jul, Back pain 724.5 [facility] [address] [id number] [address] [place] [id number] Jun, Back pain 724.5 [facility] [address] [id number] [address] [place] [phone] May, Back pain 724.5 [facility] [address] [id number] [address] [place] [id number] Apr, [facility] [address] [id number] [address] [place] [phone] Mar, [facility] [address] [id number] [address] [place] [address], [place] [id number] 14 Jan, 2015 [facility] [address] [id number] [address] [place] [address], [place] [id number] 13 Jan, 2015 [facility] [address] [id number] [address] [place] [address], [place] [id number] Dec, [facility] [address] [id number] [address] [place] [address], [place] [address] Dec, [facility] [address] [id number] [address] [place] [address], [place] [id number] Dec, [facility] [address] [id number] [address] [place] [address], [place] [phone] Dec, [facility] [address] [id number] [address] [place] [address], [place] [phone] Nov, [facility] [address] [id number] [address] [place] [address], [place] [id number] Nov, [facility] [address] [id number] [address] [place] [address], [place] [id number] Oct, [facility] [address] [id number] [address] [place] [address], [place] [address] Oct, [facility] [address] [id number] [address] [place] [address], [place] [id number] Sep, [facility] [address] [id number] [address] [place] [address], [place] [id number] Sep, [facility] [address] [id number] [address] [place] [address], [place] [id number] Jul, [facility] [address] [id number] [address] [place] [address], [place] [address] Jul, [facility] [address] [id number] [address] [place] [address], [place] [address] Jul, [facility] [address] [id number] [address] [place] [address], [place] [id number] Jun, [facility] [address] [id number] [address] [place] [address], [place] [id number] Jun, [facility] [address] [id number] [address] [place] [address], [place] [address] Jun, [facility] [address] [id number] [address] [place] [address], [place] [id number] Jun, [facility] [address] [id number] [address] [place] [address], [place] [address] May, [facility] [address] [id number] [address] [place] [address], [place] [id number] May, [facility] [address] [id number] [address] [place] [address], [place] [address] May, [facility] [address] [id number] [address] [place] [address], [place] [address] May, [facility] [address] [id number] [address] [place] [address], [place] [address] Apr, [facility] [address] [id number] [address] [place] [address], [place] [address] Apr, [facility] [address] [id number] [address] [place] [address], [place] [address] Mar, [facility] [address] [id number] [address] [place] [address], [place] [address] Mar, [facility] [address] [id number] [address] [place] [address], [place] [address] Jan, [facility] [address] [id number] [address] [place] [address], [place] [address] Jan, [facility] [address] [id number] [address] [place] [address], [place] [address] Dec, [facility] [address] [id number] [address] [place] [address], [place] [address] Dec, [facility] [address] [id number] [address] [place] [address], [place] [address] Nov, [facility] [address] [id number] [address] [place] [address], [place] [address] Nov, [facility] [address] [id number] [address] [place] [address], [place] [address] Sep, [facility] [address] [id number] [address] [place] [address], [place] [address] Sep, [facility] [address] [id number] [address] [place] [address], [place] [address] Sep, [facility] [address] [id number] [address] [place] [address], [place] [address] Sep, [facility] [address] [id number] [address] [place] [address], [place] [address] Aug, [facility] [address] [id number] [address] [place] [address], [place] [address] Aug, [facility] [address] [id number] [address] [place] [address], [place] [address] May, [facility] [address] [id number] [address] [place] [address], [place] [address] Apr, [facility] [address] [id number] [address] [place] [address], [place] [address] Mar, [facility] [address] [id number] [address] [place] [address], [place] [address] February, [facility] [address] [id number] [address] [place] [id number] Jan, [facility] [address] [id number] [address] [place] [address], [place] [address] Jan, [facility] [address] [id number] [address] [place] [address], [place] [address] Jan, [facility] [address] [id number] [address] [place] [address], [place] [id number] Dec, [facility] [address] [id number] [address] [place] [id number] 13 Dec, 2012 [facility] [address] [id number] [address] [place] [phone] Dec, [facility] [address] [id number] [address] [place] [id number] Oct, [facility] [address] [id number] [address] [place] [id number] Sep, [facility] [address] [id number] [address] [place] [phone] Sep, [facility] [address] [id number] [address] [place] [phone] Aug, [facility] [address] [id number] [address] [place] [phone] Aug, [facility] [address] [id number] [address] [place] [phone] Aug, [facility] [address] [id number] [address] [place] [phone] Aug, [facility] [address] [id number] [address] [place] [phone] Aug, [facility] [address] [id number] [address] [place] [phone] Jun, [facility] [address] [id number] [address] [place] [phone] May, [facility] [address] [id number] [address] [place] [phone] Mar, [facility] [address] [id number] [address] [place] [phone] Sep, IMMUNIZATIONS No Known Immunizations SOCIAL HISTORY Never Assessed REASON FOR VISIT EMR-[facility] PLAN OF CARE VITAL SIGNS MEDICATIONS No Known Medications RESULTS No Results PROCEDURES No Known procedures INSTRUCTIONS MEDICATIONS ADMINISTERED No Known Medications MEDICAL (GENERAL) HISTORY Type Description Date Medical History scolosis
--- OUTSIDE RECORDS SUMMARY | 2020-01-07 19:49 | XMS REPORT ---
Author Author Jacob Alonso Doctor Organization [facility] Address Unknown Phone Unavailable Care Team Providers Care Castables Worker Name Role Phone Migration, Doctor Unavailable Unavailable PROBLEMS Type Condition ICD9-CM Code [id number] Code Onset Dates Condition S tatus SNOMED Code Problem Other chronic pain G89.29 Active 8 [id number] ALLERGIES No Information ENCOUNTERS Encounter Location Date Diagnosis [facility] [address] [id number] [address] [place] [id number] Oct, Low back pain M54.5 and Othe r chronic pain G89.29 [facility] [address] [id number] [address] [place] [id number] Sep, [facility] [address] [id number] [address] [place] [phone] Aug, [facility] [address] [id number] [address] [place] [phone] Jul, [facility] [address] [id number] [address] [place] [phone] Jul, [facility] [address] [id number] [address] [place] [phone] Jul, [facility] [address] [id number] [address] [place] [phone] Jun, [facility] [address] [id number] [address] [place] [phone] Jun, [facility] [address] [id number] [address] [place] [id number] May, [facility] [address] [id number] [address] [place] [phone] Apr, [facility] [address] [id number] [address] [place] [phone] Apr, [facility] [address] [id number] [address] [place] [address], [place] [address] February, [facility] [address] [id number] [address] [place] [phone] February, [facility] [address] [id number] [address] [place] [address], [place] [address] Jan, [facility] [address] [id number] [address] [place] [phone] Nov, [facility] [address] [id number] [address] [place] [phone] Oct, [facility] [address] [id number] [address] [place] [id number] Oct, [facility] [address] [id number] [address] [place] [phone] Sep, [facility] [address] [id number] [address] [place] [phone] Aug, Low back pain M54.5 and Othe r chronic pain G89.29 [facility] [address] [id number] [address] [place] [phone] Jul, [facility] [address] [id number] [address] [place] [id number] Jul, [facility] [address] [id number] [address] [place] [phone] Jul, [facility] [address] [id number] [address] [place] [phone] May, [facility] [address] [id number] [address] [place] [phone] May, [facility] [address] [id number] [address] [place] [id number] Apr, [facility] [address] [id number] [address] [place] [phone] Mar, [facility] [address] [id number] [address] [place] [phone] February, Low back pain M54.5 [facility] [address] [id number] [address] [place] [phone] February, Low back pain M54.5 [facility] [address] [id number] [address] [place] [id number] Dec, Low back pain M54.5 and Ami roesophageal reflux disease with esophagitis K21.0 [facility] [address] [id number] [address] [place] [id number] Dec, [facility] [address] [id number] [address] [place] [phone] Oct, [facility] [address] [id number] [address] [place] [phone] Sep, [facility] [address] [id number] [address] [place] [phone] Sep, [facility] [address] [id number] [address] [place] [phone] Aug, Back pain 724.5 [facility] [address] [id number] [address] [place] [phone] Jul, Back pain 724.5 [facility] [address] [id number] [address] [place] [phone] Jun, Back pain 724.5 [facility] [address] [id number] [address] [place] [phone] May, Back pain 724.5 [facility] [address] [id number] [address] [place] [phone] Apr, [facility] [address] [id number] [address] [place] [id number] Mar, [facility] [address] [id number] [address] [place] [address], [place] [address] 14 Jan, 2015 [facility] [address] [id number] [address] [place] [address], [place] [address] 13 Jan, 2015 [facility] [address] [id number] [address] [place] [address], [place] [address] Dec, [facility] [address] [id number] [address] [place] [address], [place] [address] Dec, [facility] [address] [id number] [address] [place] [address], [place] [address] Dec, [facility] [address] [id number] [address] [place] [address], [place] [address] Dec, [facility] [address] [id number] [address] [place] [address], [place] [address] Nov, [facility] [address] [id number] [address] [place] [address], [place] [address] Nov, [facility] [address] [id number] [address] [place] [address], [place] [address] Oct, [facility] [address] [id number] [address] [place] [address], [place] [address] Oct, [facility] [address] [id number] [address] [place] [address], [place] [address] Sep, [facility] [address] [id number] [address] [place] [address], [place] [address] Sep, [facility] [address] [id number] [address] [place] [address], [place] [address] Jul, [facility] [address] [id number] [address] [place] [address], [place] [address] Jul, [facility] [address] [id number] [address] [place] [address], [place] [address] Jul, [facility] [address] [id number] [address] [place] [address], [place] [address] Jun, [facility] [address] [id number] [address] [place] [address], [place] [address] Jun, [facility] [address] [id number] [address] [place] [address], [place] [address] Jun, [facility] [address] [id number] [address] [place] [address], [place] [address] Jun, [facility] [address] [id number] [address] [place] [address], [place] [address] May, [facility] [address] [id number] [address] [place] [address], [place] [address] May, [facility] [address] [id number] [address] [place] [address], [place] [address] May, [facility] [address] [id number] [address] [place] [address], [place] [address] May, [facility] [address] [id number] [address] [place] [address], [place] [address] Apr, [facility] [address] [id number] [address] [place] [address], [place] [address] Apr, [facility] [address] [id number] [address] [place] [address], [place] [address] Mar, [facility] [address] [id number] [address] [place] [address], [place] [address] Mar, [facility] [address] [id number] [address] [place] [address], [place] [address] Jan, [facility] [address] [id number] [address] [place] [address], [place] [address] Jan, [facility] [address] [id number] [address] [place] [address], [place] [address] Dec, [facility] [address] [id number] [address] [place] [address], [place] [address] Dec, [facility] [address] [id number] [address] [place] [address], [place] [address] Nov, [facility] [address] [id number] [address] [place] [address], [place] [address] Nov, [facility] [address] [id number] [address] [place] [address], [place] [address] Sep, [facility] [address] [id number] [address] [place] [address], [place] [address] Sep, [facility] [address] [id number] [address] [place] [address], [place] [address] Sep, [facility] [address] [id number] [address] [place] [address], [place] [address] Sep, [facility] [address] [id number] [address] [place] [address], [place] [address] Aug, [facility] [address] [id number] [address] [place] [address], [place] [address] Aug, [facility] [address] [id number] [address] [place] [address], [place] [address] May, [facility] [address] [id number] [address] [place] [address], [place] [address] Apr, [facility] [address] [id number] [address] [place] [address], [place] [address] Mar, [facility] [address] [id number] [address] [place] [address], [place] [address] February, [facility] [address] [id number] [address] [place] [phone] Jan, [facility] [address] [id number] [address] [place] [address], [place] [address] Jan, [facility] [address] [id number] [address] [place] [address], [place] [address] Jan, [facility] [address] [id number] [address] [place] [address], [place] [address] Dec, [facility] [address] [id number] [address] [place] [id number] 13 Dec, 2012 [facility] [address] [id number] [address] [place] [phone] Dec, [facility] [address] [id number] [address] [place] [id number] Oct, [facility] [address] [id number] [address] [place] [phone] Sep, [facility] [address] [id number] [address] [place] [phone] Sep, [facility] [address] [id number] [address] [place] [id number] Aug, [facility] [address] [id number] [address] [place] [phone] Aug, [facility] [address] [id number] [address] [place] [phone] Aug, [facility] [address] [id number] [address] [place] [phone] Aug, [facility] [address] [id number] [address] [place] [phone] Aug, [facility] [address] [id number] [address] [place] [id number] Jun, [facility] [address] [id number] [address] [place] [phone] May, [facility] [address] [id number] [address] [place] [phone] Mar, [facility] [address] [id number] [address] [place] [phone] Sep, IMMUNIZATIONS No Known Immunizations SOCIAL HISTORY Never Assessed REASON FOR VISIT [facility]MR-[facility] PLAN OF CARE VITAL SIGNS MEDICATIONS No Known Medications RESULTS No Results PROCEDURES No Known procedures INSTRUCTIONS MEDICATIONS ADMINISTERED No Known Medications MEDICAL (GENERAL) HISTORY Type Description Date Medical History scolosis
--- OUTSIDE RECORDS SUMMARY | 2020-01-07 19:49 | XMS REPORT ---
Author Author Jacob ROSALES Organization [facility] Address [address] [place] [address] Care Team Providers Care Anesthesia Assistant Name Role Phone ESTELA ROSALES Unavailable PROBLEMS Type Condition ICD9-CM Code NXU84-OR Code Onset Dates Condition S tatus SNOMED Code Problem Other chronic pain G89.29 Active 8 [id number] ALLERGIES No Information ENCOUNTERS Encounter Location Date Diagnosis [facility] [address] [id number] [address] [place] [address] Oct, Low back pain M54.5 and Othe r chronic pain G89.29 [facility] [address] [id number] [address] [place] [address] Sep, [facility] [address] [id number] [address] [place] [address] Aug, [facility] [address] [id number] [address] [place] [address] Jul, [facility] [address] [id number] [address] [place] [address] Jul, [facility] [address] [id number] [address] [place] [address] Jul, [facility] [address] [id number] [address] [place] [address] Jun, [facility] [address] [id number] [address] [place] [address] Jun, [facility] [address] [id number] [address] [place] [address] May, [facility] [address] [facility] [id number] [address] [place] [address] Apr, [facility] [address] [id number] [address] [place] [address], [place] [address] Apr, [facility] [address] [id number] [address] [place] [address], [place] [address] February, [facility] [address] [id number] [address] [place] [address], [place] [address] February, [facility] [address] [id number] [address] [place] [address], [place] [address] Jan, [facility] [address] [id number] [address] [place] [address], [place] [address] Nov, [facility] [address] [id number] [address] [place] [address], [place] [address] Oct, [facility] [address] [id number] [address] [place] [address], [place] [address] Oct, [facility] [address] [id number] [address] [place] [address], [place] [address] Sep, [facility] [address] [id number] [address] [place] [address], [place] [address] Aug, Low back pain M54.5 and Othe r chronic pain G89.29 [facility] [address] [id number] [address] [place] [address], [place] [address] Jul, [facility] [address] [id number] [address] [place] [address], [place] [address] Jul, [facility] [address] [id number] [address] [place] [address], [place] [address] Jul, [facility] [address] [id number] [address] [place] [address], [place] [address] May, [facility] [address] [id number] [address] [place] [address], [place] [address] May, [facility] [address] [id number] [address] [place] [address], [place] [address] Apr, [facility] [address] [id number] [address] [place] [phone] Mar, [facility] [address] [id number] [address] [place] [address] February, Low back pain M54.5 [facility] [address] [id number] [address] [place] [address] February, Low back pain M54.5 [facility] [address] [id number] [address] [place] [address] Dec, Low back pain M54.5 and Ami roesophageal reflux disease with esophagitis K21.0 [facility] [address] [id number] [address] [place] [address] Dec, [facility] [address] [id number] [address] [place] [address] Oct, [facility] [address] [id number] [address] [place] [address] Sep, [facility] [address] [id number] [address] [place] [address] Sep, [facility] [address] [id number] [address] [place] [address] Aug, Back pain 724.5 [facility] [address] [id number] [address] [place] [address] Jul, Back pain 724.5 [facility] [address] [id number] [address] [place] [address] Jun, Back pain 724.5 [facility] [address] [id number] [address] [place] [address] May, Back pain 724.5 [facility] [address] [id number] [address] [place] [address] Apr, [facility] [address] [id number] [address] [place] [address] Mar, [facility] [address] [id number] [address] [place] [address], [place] [address] 14 Jan, 2015 [facility] [address] [id number] [address] [place] [address], [place] [address] Jan, [facility] [address] [id number] [address] [place] [address], [place] [address] Dec, [facility] [address] [id number] [address] [place] [address], [place] [address] Dec, [facility] [address] [id number] [address] [place] [address], [place] [address] Dec, [facility] [address] [id number] [address] [place] [address], [place] [address] Dec, [facility] [address] [id number] [address] [place] [address], [place] [address] Nov, [facility] [address] [id number] [address] [place] [address], [place] [address] Nov, [facility] [address] [id number] [address] [place] [address], [place] [address] Oct, [facility] [address] [id number] [address] [place] [address], [place] [address] Oct, [facility] [address] [id number] [address] [place] [address], [place] [address] Sep, [facility] [address] [id number] [address] [place] [address] Sep, [facility] [address] [id number] [address] [place] [address], [place] [address] Jul, [facility] [address] [id number] [address] [place] [address], [place] [address] Jul, [facility] [address] [id number] [address] [place] [address], [place] [address] Jul, [facility] [address] [id number] [facility] [place] [address] 22 Jun, 2014 [facility] [address] [id number] [address] [place] [address], [place] [address] 22 Jun, 2014 [facility] [address] [id number] [address] [place] [address], [place] [address] Jun, [facility] [address] [id number] [address] [place] [address], [place] [address] Jun, [facility] [address] [id number] [address] [place] [address], [place] [address] May, [facility] [address] [id number] [address] [place] [address], [place] [address] May, [facility] [address] [id number] [address] [place] [address], [place] [address] May, [facility] [address] [id number] [address] [place] [address], [place] [address] May, [facility] [address] [id number] [address] [place] [address], [place] [address] Apr, [facility] [address] [id number] [address] [place] [address], [place] [address] Apr, [facility] [address] [id number] [address] [place] [address], [place] [address] Mar, [facility] [address] [id number] [address] [place] [address], [place] [address] Mar, [facility] [address] [id number] [address] [place] [address], [place] [address] Jan, [facility] [address] [id number] [address] [place] [address], [place] [address] Jan, [facility] [address] [id number] [address] [place] [address], [place] [address] Dec, [facility] [address] [id number] [address] [place] [address], [place] [address] Dec, [facility] [address] [id number] [address] [place] [address], [place] [address] Nov, [facility] [address] [id number] [address] [place] [address], [place] [address] Nov, [facility] [address] [id number] [address] [place] [address], [place] [address] Sep, [facility] [address] [id number] [address] [place] [address], [place] [address] Sep, [facility] [address] [id number] [address] [place] [address], [place] [address] Sep, [facility] [address] [id number] [address] [place] [address], [place] [address] Sep, [facility] [address] [id number] [address] [place] [address], [place] [address] Aug, [facility] [address] [id number] [address] [place] [address] Aug, [facility] [address] [id number] [address] [place] [address], [place] [address] May, [facility] [address] [id number] [address] [place] [address] Apr, [facility] [address] [id number] [address] [place] [address] Mar, [facility] [address] [id number] [address] [place] [address] February, [facility] [address] [id number] [address] [place] [address], [place] [address] Jan, [facility] [address] [id number] [address] [place] [address] Jan, [facility] [address] [id number] [address] [place] [address] Jan, [facility] [address] [id number] [address] [place] [address] 15 Dec, 2012 [facility] [address] [id number] [address] [place] [address] 13 Dec, 2012 [facility] [address] [id number] [address] [place] [address] 13 Dec, 2012 [facility] [address] [id number] [address] [place] [address] Oct, [facility] [address] [id number] [address] [place] [address] Sep, [facility] [address] [id number] [address] [place] [address] Sep, [facility] [address] [id number] [address] [place] [address] Aug, [facility] [address] [id number] [address] [place] [address] Aug, [facility] [address] [id number] [address] [place] [address] Aug, [facility] [address] [id number] [address] [place] [address] Aug, [facility] [address] [facility] [id number] [address] [place] [address] Aug, [facility] [address] [id number] [address] [place] [address] Jun, [facility] [address] [id number] [address] [place] [address] May, [facility] [address] [id number] [address] [place] [address] Mar, [facility] [address] [id number] [address] [place] [address] Sep, IMMUNIZATIONS No Known Immunizations SOCIAL HISTORY Never Assessed REASON FOR VISIT PLAN OF CARE VITAL SIGNS MEDICATIONS No Known Medications RESULTS No Results PROCEDURES No Known procedures INSTRUCTIONS MEDICATIONS ADMINISTERED No Known Medications MEDICAL (GENERAL) HISTORY Type Description Date Medical History scolosis
--- OUTSIDE RECORDS SUMMARY | 2020-01-07 19:50 | XMS REPORT | Continuity of Care Document ---
Author Organization Unknown Address Unknown Phone Unavailable Allergies Active Description Code Type Severity Reaction Onset Reported/Identified Relationship to Patient Clinical Status Yes No Known Drug Allergies [id number] Drug Allergy Unknown N/A 06/10/2011 Medications There is no data. Problems Date Dx Coded Attending Type Code Diagnosis Diagnosed By 06/10/2011 Ot 873.0 OPEN WOUND OF SCALP 06/10/2011 Ot 873.43 OPE N WOUND OF LIP 06/10/2011 Ot E000.8 OTH ER EXTERNAL CAUSE STATUS 06/10/2011 Ot E849.[address] ID ON [address]REET/HIGHWAY 06/10/2011 Ot E888.9 FAL L NOS 06/20/2011 Ot V58.32 ENC OUNTER FOR REMOVAL OF SUTURES 09/14/2011 ESTELA ROSALES APRN 72 4.2 LUMBAGO 09/14/2011 ESTELA ROSALES APRN 72 4.2 LUMBAGO 09/14/2011 724.2 LUMBAGO 09/14/2011 724.2 LUMBAGO 09/14/2011 724.2 LUMBAGO 09/14/2011 ESTELA ROSALES APRN 72 4.2 LUMBAGO 09/14/2011 ESTELA ROSALES APRN 72 4.2 LUMBAGO 09/14/2011 ESTELA ROSALES APRN 72 4.2 LUMBAGO 02/07/2013 462 PHARYN GITIS 02/07/2013 ESTELA ROSALES APRN 46 2 PHARYNGITIS 02/07/2013 ESTELA ROSALES APRN 46 2 PHARYNGITIS 02/07/2013 ESTELA ROSALES APRN 46 2 PHARYNGITIS 11/19/2013 ESTELA ROSALES APRN 00 8.8 GASTROENTERITIS, VIRAL 11/19/2013 ESTELA ROSALES APRN 00 8.8 GASTROENTERITIS, VIRAL 11/14/2015 Ot 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 05/18/2016 VIDYA YA APRN Ot Y99 .8 OTHER EXTERNAL CAUSE STATUS 05/19/2016 VIDYA YA APRN Ot F17.210 NICOTINE DEPENDENCE, CIGARETTES, UNCOMPL 05/19/2016 VIDYA YA APRN Ot S51.812A LACERATION WITHOUT FOREIGN BODY OF LEFT 05/19/2016 VIDYA YA APRN Ot W26.0XXA CONTACT WITH KNIFE, INITIAL ENCOUNTER 05/19/2016 VIDYA YA APRN Ot Y92.[address] [facility] 05/19/2016 VIDYA YA APRN Ot Y99 .8 OTHER EXTERNAL CAUSE STATUS 08/17/2018 ALICIA ASHLEY MD Ot F10.120 ALCOHOL ABUSE WITH INTOXICATION, UNCOMPL 08/17/2018 ALICIA ASHLEY MD Ot F17.210 NICOTINE DEPENDENCE, CIGARETTES, UNCOMPL 08/20/2018 ALICIA ASHLEY MD Ot F10.120 ALCOHOL ABUSE WITH INTOXICATION, UNCOMPL 08/20/2018 ALICIA ASHLEY MD Ot F17.210 NICOTINE DEPENDENCE, CIGARETTES, UNCOMPL 01/01/2019 KRISTEN SARGENT Ot F17.210 NICOTINE DEPENDENCE, CIGARETTES, UNCOMPL 01/01/2019 KRISTEN SARGENT Ot M41.9 SCOLIOSIS, UNSPECIFIED 01/01/2019 KRISTEN SARGENT Ot S01.81XA LACERATION W/O FOREIGN BODY OF OTH PART 01/01/2019 KRISTEN SARGENT Ot W01.198A FALL SAME LEV FROM SLIP/TRIP W STRIKE AG 01/04/2019 KRISTEN SARGENT Ot F17.210 NICOTINE DEPENDENCE, CIGARETTES, UNCOMPL 01/04/2019 KRISTEN SARGENT Ot M41.9 SCOLIOSIS, UNSPECIFIED 01/04/2019 KRISTEN SARGENT Ot S01.81XA LACERATION W/O FOREIGN BODY OF OTH PART 01/04/2019 KRISTEN SARGENT Ot W01.198A FALL SAME LEV FROM SLIP/TRIP W STRIKE AG Procedures There is no data. Results Test Result Range Capillary blood glucose measurement by g lucometer (mass/volume) - 08/17/18 19:54 Capillary blood glucose measurement by glucometer (mas s/volume) 98 mg/dL 70-110 Complete blood count (CBC) with automate d white blood cell (WBC) differential - 08/17/18 19:58 Blood leukocytes automated count (number/volume) 9.1 10*3/uL 4.3-11.0 Blood erythrocytes automated count (number/volume) 4.29 10*6/uL 4.35-5.85 Venous blood hemoglobin measurement (mass/volume) 13.7 g/dL 13.3-17.7 Blood hematocrit (volume fraction) 39 % 40-54 Automated erythrocyte mean corpuscular volume 92 [ foz_us] 80-99 Automated erythrocyte mean corpuscular h emoglobin (mass per erythrocyte) 32 pg 25-34 Automated erythrocyte mean corpuscular h emoglobin concentration measurement (mass/volume) 35 g/dL 32-36 Automated erythrocyte distribution width ratio 13. 0 % 10.0- 14.5 Automated blood platelet count (count/volume) 266 10*3/uL [...] 10*3 1.0-4.0 Blood monocytes automated count (number/volume) 1. 0 10*3 0.0-1.0 Automated eosinophil count 0.1 10*3/uL 0 .0-0.3 Automated blood basophil count (count/volume) 0.1 10*3/uL 0.0-0.1 Comprehensive metabolic panel - 08/17/18 19:58 Serum or plasma sodium measurement (moles/volume) 141 mmol/L 135-145 Serum or plasma potassium measurement (moles/volume) 3.6 mmol/L 3.6-5.0 Serum or plasma chloride measurement (moles/volume) 105 mmol/L 98-107 Carbon dioxide 23 mmol/L 21-32 Serum or plasma anion gap determination (moles/volume) 13 mmol/L 5-14 Serum or plasma urea nitrogen measurement (mass/volume ) 16 mg/dL 7-18 Serum or plasma creatinine measurement (mass/volume) 0.84 mg/dL 0.60-1.30 Serum or plasma urea nitrogen/creatinine mass ratio 19 NRG Serum or plasma creatinine measurement w ith calculation of estimated glomerular filtration rate > NRG Serum or plasma glucose measurement (mass/volume) 91 mg/dL 70-105 Serum or plasma calcium measurement (mass/volume) 9.1 mg/dL 8.5-10.1 Serum or plasma total bilirubin measurement (mass/volu me) 1.4 mg/dL 0.1-1.0 Serum or plasma alkaline phosphatase sue surement (enzymatic activity/volume) 49 U/L 40-136 Serum or plasma aspartate aminotransfera se measurement (enzymatic activity/volume) 14 U/L 5-34 Serum or plasma alanine aminotransferase measurement (enzymatic activity/volume) 11 U/L 0-55 Serum or plasma protein measurement (mass/volume) 6.9 g/dL 6.4-8.2 Serum or plasma albumin measurement (mass/volume) 4.3 g/dL 3.2-4.5 CALCIUM CORRECTED 8.9 mg/dL 8.5-10.1 Serum or plasma salicylates measurement (mass/volume) - 08/17/18 19:58 Serum or plasma salicylates measurement (mass/volume) < mg/dL 5.0-20.0 Serum or plasma acetaminophen measuremen t (mass/volume) - 08/17/18 19:58 Serum or plasma acetaminophen measurement (mass/volume ) < ug/mL 10-30 Serum or plasma ethanol measurement (mas s/volume) - 08/17/18 19:58 Serum or plasma ethanol measurement (mass/volume) 268 mg/dL <10 Encounters ACCT No. Visit Date/Time Discharge Status Pt. Type Provider Facility Loc./Unit Complaint [id number] 08/05/2014 11:22:00 08/05/2014 23:59: 59 CLS Outpatient ESTELA ROSALES APRN [id number] 11/19/2013 16:52:00 11/19/2013 23:59: 59 CLS Outpatient ESTELA ROSALES APRN [id number] 03/18/2013 16:31:00 03/18/2013 23:59: 59 CLS Outpatient ESTELA ROSALES APRN [id number] 01/17/2013 11:15:00 01/17/2013 23:59: 59 CLS Outpatient [id number] 12/27/2012 11:42:00 12/27/2012 23:59: 59 CLS Outpatient [id number] 08/21/2012 12:41:00 08/21/2012 23:59:5 9 CLS Outpatient ESTELA ROSALES APRN [id number] 08/21/2012 12:41:00 08/21/2012 23:59: 59 CLS Outpatient ESTELA ROSALES APRN [id number] 02/07/2013 10:02:00 Document Registration [id number] 01/07/2020 16:55:00 020 18:12:00 DIS Emergency KEY PORTILLO [facility] ER LEFT ARM LACERATION [id number] 01/01/2019 19:36:00 019 20:48:00 DIS Emergency KRISTEN SARGENT [facility] ER FACIAL LACERATION [id number] 08/17/2018 19:35:00 018 20:58:00 DIS Emergency ALICIA ASHLEY MD [facility] ER ETOH [id number] 05/18/2016 19:05:00 016 20:09:00 DIS Emergency VIDYA YA EN[employer] SOFTWARE ENGINEER [facility] ER LEFT ARM INJ [id number] 03/18/2016 16:40:00 016 23:59:59 CLS Outpatient RICHARD RODRIGUEZ [employer] ENGINEER [facility] QUICK [id number] 11/14/2015 21:46:00 Document Registration [id number] 06/20/2011 16:55:00 Document Registration [id number] 06/10/2011 06:20:00 Document Registration [id number] 10/26/2017 15:00:00 10/26/2017 23:59:5 9 CLS [facility]
== END 2020-01-07 18:12 | disposition home or self-care (01) ==
LOC: EDUNIT# 16:54 → ER 16:55
DX: S51.812A Laceration without foreign body of left forearm, initial encounter (principal); W25.XXXA Contact with sharp glass, initial encounter; M41.9 Scoliosis, unspecified; M54.9 Dorsalgia, unspecified; Z23 Encounter for immunization
CPT/HCPCS: 90715; 99284

== ENCOUNTER 2023-03-11 17:17 | Emergency (ER) | payer SELFPAY ==
[~2023-03-11] VITALS: Ht 177.8 cm; Wt 72.5 kg
[~2023-03-11 17:17] MED LIST changes: +CEPH500T PO; -SULF1TAB35 PO; +SULF1TAB38 PO
[2023-03-11 17:25] VITALS: BP 114/74
--- NOTE | 2023-03-11 17:42 | ED Upper Extremity ---
General Chief Complaint: Upper Extremity Stated Complaint: RIGHT SHOULDER PAIN Nursing Triage Note: PT AMB TO [facility] WITH COMPLAINT OF RIGHT SHOULDER PAIN. STATES HAS HAD PAIN FOR 6 MONTHS, STATES THOUGHT IT WOULD GO AWAY, BUT HAS NOT. HAS NOT BEEN SEEN FOR SHOULDER PAIN. DENIES INJURY. Source: patient Exam Limitations: no limitations History of Present Illness Date Seen by Provider: March 11, 2023 Time Seen by Provider: 17:41 Initial Comments Patient is a 32-year-old male who presents ED with right shoulder pain. Patient states he has had this constant dull achy pain for the past 6 months. Denies of any specific injury. Pain is worse with any type of movement. States he does have a sharp shooting pain that shoots down the right arm. Patient does take Aleve intermittently for the pain without much improvement. Denies any swelling or bruising. Pain worse with overhead movement rotational movement. Denies chest pain, shortness of breath, arm weakness, fever, chills, headache or dizziness Allergies and Home Medications Allergies Coded Allergies: No Known Drug Allergies (Unverified , 06/10/11) Patient Home Medication List Home Medication List Reviewed: Yes Cephalexin (Cephalexin) 500 Mg Tablet, 500 MG PO TID Prescribed by: KEY PORTILLO on 01/07/20 180 Ketorolac Tromethamine (Ketorolac Tromethamine) 10 Mg Tablet, 10 MG PO TID Prescribed by: ROBERTO LAINEZ on 03/11/23 174 Sulfamethoxazole/Trimethoprim (Bactrim Ds Tablet) 1 Each Tablet, 1 EACH PO BID Prescribed by: KRISTEN SOTO on 01/01/192041 Review of Systems Constitutional: No chills, No diaphoresis, No fever, No malaise, No weakness EENTM: No blurred vision, No double vision Respiratory: No cough, No dyspnea on exertion Cardiovascular: No chest pain, No edema Gastrointestinal: No abdominal pain, No nausea, No vomiting Genitourinary: No decreased output, No discharge Musculoskeletal: No back pain; joint pain, muscle pain, muscle stiffness Skin: No change in color, No change in hair/nails All Other Systems Reviewed Negative Unless Noted: Yes Past Vfrlhjg-Nggilt-Uvyaji Hx Patient Social History Tobacco Use?: Yes Smoking Status: Current Everyday Smoker Use of E-Cig and/or Vaping dev: No Substance use?: No Alcohol Use?: No Pt feels they are or have been: No Immunizations Up To Date Tetanus Booster (TDap): Less than 5yrs Seasonal Allergies Seasonal Allergies: No Past Medical History Surgeries: No Respiratory: No Cardiac: No Neurological: No Reproductive Disorders: No Sexually Transmitted Disease: No HIV/AIDS: No Gastrointestinal: No Musculoskeletal: Yes Scoliosis, Chronic Back Pain Endocrine: No Cancer: No Psychosocial: No Integumentary: No Blood Disorders: No Adverse Reaction/Blood Tranf: No Family Medical History No Pertinent Family Hx Physical Exam Vital Signs Vital Signs - First Documented 03/11/23 17:25 Pulse 57 Resp 16 B/P (MAP) 114/74 (87) Pulse Ox 98 O2 Delivery Room Air Capillary Refill : Less Than 3 Seconds Height, Weight, BMI Height: 5'10.00" Weight: 140lbs. oz. 63.002434pk; 22.00 BMI Method:Stated General Appearance: WD/WN, no apparent distress HEENT: PERRL/EOMI, normal ENT inspection, TMs normal, pharynx normal Neck: non-tender, full range of motion, supple Cardiovascular: regular rate, rhythm, no edema, no gallop, no JVD Respiratory: chest non-tender, lungs clear, normal breath sounds, no respiratory distress, no accessory muscle use Gastrointestinal: normal bowel sounds, non tender, soft, no organomegaly Back: normal inspection, no CVA tenderness Shoulder: soft tissue tenderness (Right anterior and posterior shoulder tenderness. Normal active range of motion. Mild weakness noted with empty can test. Pain with Speed test. Internal/external rotation strength out of 5. Negative liftoff test. Catering Cook strength 5 5. Neurovascular intact. 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 as tested, no motor/sensory deficits, alert, normal mood/affect, oriented x 3 Skin: normal color, warm/dry Procedures/Interventions Suture Size: 4-0 Progress/Results/Core Measures Results/Orders My Orders Orders - ALEX REYES Ketorolac Injection (Toradol Injection) (5/28/23 17:45) Medications Given in ED Current Medications Medications Dose Ordered Sig/Trupti Route Start Time Stop Time Status Last Admin Dose Admin Ketorolac Tromethamine 30 mg ONCE ONCE IM 03/11/23 17:45 03/11/23 17:46 DC 03/11/23 17:46 30 MG Vital Signs/I&O 03/11/23 17:25 Pulse 57 Resp 16 B/P (MAP) 114/74 (87) Pulse Ox 98 O2 Delivery Room Air Blood Pressure Mean: 87 Departure Communication (PCP) Reviewed previous ER visits, H&P, lab testing. Right shoulder pain for the past 6 months. Pain worse with movement. Reports a sharp shooting pain down into th e right hand. Differential diagnosis of rotator cuff injury, shoulder muscle strain, nerve impingement. Denies chest pain, cough or shortness of breath. Denies of any specific injury. On exam does have some mild weakness assessing rotator cuff. Negative Spurling sign. Good bread room hand strength neurovascular intact. Appropriate range of motion but with some pain and discomfort. Positive Neer test. Concerning for rotator cuff injury versus impingement syndrome versus tendinitis versus radiculopathy with the sharp shooting pain down to the right arm. Offered a x-ray of the right shoulder however patient would rather wait. I do think patient would benefit with an MRI versus EMG as x-ray will be limited. Patient needs to follow-up with orthopedic due to length of symptoms. Provided Toradol shot. Will discharge with Toradol. Discussed range of motion exercises, strength exercises at this time. Further orthopedic follow-up. He agrees with this plan of action Impression Primary Impression: Shoulder pain Disposition: 01 HOME, SELF-CARE Condition: Stable Departure-Patient Inst. Decision time for Depature: 17:45 Referrals: [facility] (PCP/Family) Primary Care Physician DENI CORNELIUS MD Patient Instructions: Shoulder Pain ED, Shoulder Pain (DC) Add. Discharge Instructions: Recommend follow-up with orthopedic for further evaluation. Take pain medication as prescribed. All discharge instructions reviewed with patient and/or family. Voiced understanding. Scripts Ketorolac Tromethamine (Ketorolac Tromethamine) 10 Mg Tablet 10 MG PO TID, #15 TAB Prov: ALEX REYES 03/11/23 ALEX REYES March 11, 2023 17:42
[2023-03-11] MEDS ORDERED: KETOROLAC 30 MG/ML VIAL IM ONE (17:45)
[2023-03-11] MEDS ORDERED: KETO10TA PO (17:46)
== END 2023-03-11 18:04 | disposition home or self-care (01) ==
LOC: EDUNIT# 17:17 → ER 17:20
DX: M25.511 Pain in right shoulder (principal); F17.200 Nicotine dependence, unspecified, uncomplicated
CPT/HCPCS: 99284